=== PATIENT | male | born 1955 | race Caucasian/White ===

== ENCOUNTER 2017-12-04 10:01 | Inpatient (IN) | payer SELFPAY ==
[~2017-12-04] VITALS: Ht 175.3 cm; Wt 111.1 kg
[~2017-12-04 10:01] MED LIST: LORCET 10-6501 EACH PO; NORVASC10 MG PO; ULTRACET TABLE1 EACH PO
--- NOTE | 2017-12-04 10:40 | Diagnostic Imaging Report ---
Exam: Head CT without contrast History: Weakness in left hand and numbness and in left arm Comparison studies: None Technique: Axial images were obtained from the skull base to the vertex. Coronal and sagittal images reconstructed from the axial data. Intravenous contrast: None Findings: Scalp: No abnormalities. Bones: No fractures, blastic or lytic lesions. Brain sulci: Mildly prominent. Ventricles: Mild compensatory dilatation.. No hydrocephalus. Extra-axial spaces: No masses, no fluid collection. Parenchyma: No mass or acute hemorrhage. Subtle 6 mm age-indeterminate cortical insult along the right precentral gyrus regional to the hand knob. Symptoms of left handed weakness could be accounted for by a lesion in this location. There are chronic left striatal-capsular lacunar infarcts. Additional chronic lacunar infarct in in the bilateral thalami. Small juxtacortical lacunar insult along the left inferior frontal gyrus appears to be chronic. A few scattered hypodensities in the supratentorial white matter are nonspecific but most compatible with chronic small vessel ischemic changes. Sellar/suprasellar region: No abnormalities. Craniocervical junction: Patent foramen magnum. No Chiari one malformation. Incidental findings: Atherosclerotic calcifications in the carotid siphons and mildly ectatic left intradural vertebral artery. IMPRESSION: 1. Small age-indeterminate nonhemorrhagic right precentral cortical insult, possibly acute in the context of localizing neurologic symptoms to the left upper extremity. Brain MRI could further evaluate. 2. No mass, acute hemorrhage or large acute territorial vascular insult. 3. Mild generalized volume loss. 4. Mild chronic microvascular ischemic changes with chronic lacunar infarcts as described. Signed by: Dr. Sam Bledsoe M.D. on 12/04/2017 10:37 AM
[2017-12-04] MEDS ORDERED: NORCO 7.5-3251 EACH PO (10:46)
[2017-12-04] MEDS ORDERED: AMBIEN10 MG PO (10:46)
[2017-12-04] MEDS ORDERED: PHENTERMINE H37.5 M1 PO (10:46)
[2017-12-04] MEDS ORDERED: ASPIRIN 81 MG CHEW TAB PO STA (10:48)
[2017-12-04 10:55] LABS: BASOPHILS % 0.3 % (0.0-1.0); EOSINOPHILS # (AUTO) 0.1 (0.0-0.4); EOSINOPHILS % 1.7 % (0.0-6.0); HEMATOCRIT 48.3 % (38.2-49.6); HEMOGLOBIN 15.9 g/dL (14.0-18.0); LYMPHOCYTES # (AUTO) 1.5 (1.0-3.2); LYMPHOCYTES % 24.7 % (18.0-39.1); MEAN CORPUSCULAR HEMOGLOBIN 28.6 pg (28-32); MEAN CORPUSCULAR HGB CONC 32.9 g/dL (31-35); MEAN CORPUSCULAR VOLUME 86.9 fL (81-99); MONOCYTES # (AUTO) 0.6 (0.2-0.8); MONOCYTES % 10.1 % (4.4-11.3); NEUTROPHILS # (AUTO) 3.7 (2.1-6.9); PLATELET COUNT 202 x10e3/uL (140-360); RED BLOOD COUNT 5.56 x10e6/uL (4.3-5.7); RED CELL DISTRIBUTION WIDTH 13.7 % (11.7-14.4)
[2017-12-04 11:06] LABS: INR 0.93; PARTIAL THROMBOPLASTIN TIME 27.9 seconds (23.8-35.5); PROTHROMBIN TIME 12.9 seconds (11.9-14.5)
[2017-12-04 11:12] LABS: ALANINE AMINOTRANSFERASE 18 IU/L (0-55); ALBUMIN 3.6 g/dL (3.5-5.0); ALKALINE PHOSPHATASE 84 IU/L (40-150); BLOOD UREA NITROGEN 13 mg/dL (7-26); BUN/CREATININE RATIO 15 (6-25); CALCIUM 8.9 mg/dL (8.4-10.2); CARBON DIOXIDE 24 mmol/L (22-29); CHLORIDE 104 mmol/L (98-107); CREATINE KINASE 59 IU/L (30-200); CREATININE, SERUM 0.88 mg/dL (0.72-1.25); EST GLOMERULAR FILTRATION RATE > 60 ML/MIN (60-); GLUCOSE 231 mg/dL (74-118); SODIUM 137 mmol/L (136-145)
[2017-12-04] MEDS ORDERED: SODIUM CHLORIDE FLUSH 10 ML SYR INJ PRN (11:45)
--- NOTE | 2017-12-04 14:19 | Diagnostic Imaging Report ---
Exam: Brain, cervical MRA and intracranial MRA without IV contrast History: Left arm weakness. Comparison studies: Head CT of the same date. Technique: Brain: Precontrast sagittal axial T2 FS, axial DWI, axial T2*GRE, axial coronal T2 FLAIR and axial T1 FLAIR. Cervical MRA: Axial 2-D [id number] with 3-D MIP reformats. Intracranial MRA: Axial 3-D [id number] with multiplanar and 3-D MIP reformats Intravenous contrast: None Findings: Brain: Scalp: No abnormal signal. No masses. Bone marrow: Normal in signal intensity. Brain sulci: Mildly prominent . Ventricles: Normal in size. No hydrocephalus. No extra-axial fluid collection. Parenchyma: Small focus of nonhemorrhagic ischemia with restricted diffusion and T2 FLAIR hyperintensity centered along the right precentral gyrus, regional to the hand knob area, extends inferiorly along the adjacent right perirolandic white matter in the right MCA territory. There is subtle foci of increased signal on the DWI sequence within the right middle frontal gyrus which likely reflects additional small foci of acute ischemia. Small focal increased DWI signal in the deep right parietal white matter is maybe with mildly decreased signal on the ADC map may reflect late acute to subacute insult. A few scattered and mildly confluent-appearing periventricular T2 FLAIR hyperintense signal changes in the supratentorial white matter are nonspecific but most compatible with chronic small vessel ischemic changes. There are 2 small chronic left striatal-capsular lacunar insults which extend from the left caudate nucleus to the left lentiform nucleus. Additionally there are small chronic lacunar infarcts in the thalami and in right superolateral putamen. Subtle increased T2 signal within the left ventral midbrain and left central swati may possibly reflect Wallerian degeneration along the left cortical spinal tract. Mild T2 FLAIR hyperintense signal changes in the swati may also reflect mild chronic small vessel ischemic changes. Suprasellar region: No abnormalities. Craniocervical junction: No abnormalities. The foramen magnum is patent. No Chiari malformations. Vessels: Normal flow-voids in the arteries and sinuses. Cervical MRA: Common carotid arteries arteries: Left common carotid artery is mildly tortuous. Cervical carotid bulbs: No (0%) stenosis by NASCET criteria. Internal carotid arteries: Patent, no stenosis. Distal segments are tortuous bilaterally. Vertebral arteries: Patent, no signal abnormalities in the dominant left vertebral artery. Hypoplastic right vertebral artery is poorly visualized in the distal V3 and proximal V4 segment near the dural insertion and terminates as a right posterior inferior cerebellar artery (PICA) branch. Intracranial MRA: Internal carotid arteries: Patent. No signal abnormalities. Middle cerebral arteries: Patent, no abnormalities in the M1 and proximal M2 segments. Anterior cerebral arteries: Patent, no abnormalities in the A1 and proximal A2 segments. Vertebrobasilar circulation: Patent. No signal abnormalities.. Anatomical variants: Acom: Visualized. Pcoms: Not visualized. Vertebral arteries: Left is dominant. Right is hypoplastic and terminates as a a PICA. IMPRESSION: Brain: 1. Small focal nonhemorrhagic ischemia in the right precentral gyrus and regional to adjacent right perirolandic tracts would account for patient's neurologic symptoms localizing to the left hand and correlates to the CT finding. Likely small additional foci of nonhemorrhagic ischemia in the adjacent right middle frontal gyrus and small late acute to subacute focus of ischemia in the deep right parietal white matter. 2. Mild generalized volume loss. 3. Chronic microvascular ischemic changes which are mildly confluent in the supratentorial white matter and chronic lacunar infarcts as described. Cervical and intracranial MRAs: 1. No acute cervical or intracranial MRA abnormalities. 2. No (0%) stenosis at the cervical carotid bifurcations. 3. Anatomical variant hypoplastic right right vertebral artery which terminates as a PICA branch. Findings discussed with Dr. Robles 2:05 PM on 12/04/2017. Signed by: Dr. Sam Bledsoe M.D. on 12/04/2017 2:15 PM
[2017-12-04] MEDS: ENOXAPARIN 30 MG/0.3 ML SYR SC SCH (14:35)
[2017-12-04 15:08] LABS: CHOL/HDL RATIO 4.5 (3.9-4.7)
[2017-12-04 16:32] LABS: BILIRUBIN,URINE NEGATIVE (NEGATIVE); KETONES,URINE NEGATIVE (NEGATIVE); LEUKOCYTE ESTERASE ,URINE NEGATIVE (NEGATIVE); NITRITE,URINE NEGATIVE (NEGATIVE); URINE UROBILINOGEN 4 mg/dL (0.2 - 1)
[2017-12-04 16:39] LABS: CLARITY,URINE CLEAR (CLEAR); COLOR,URINE AMBER (YELLOW); PROTEIN,URINE DIPSTICK 1+ (NEGATIVE)
[2017-12-04 16:46] LABS: WBC,URINE (MAN) 0-5 /HPF (0-5)
[2017-12-04 16:47] LABS: BACTERIA,URINE FEW /HPF; MUCUS,URINE MODERATE (RARE); RBC,URINE 21-50 /HPF (0-5)
[2017-12-04 16:56] VITALS: BP 135/97
[2017-12-04 17:22] VITALS: BP 135/97
[2017-12-04 20:00] VITALS: BP 133/94
--- NOTE | 2017-12-04 20:31 | Consultation ---
DATE OF CONSULTATION: December 04, 2017 NEUROLOGY CONSULTATION HISTORY OF PRESENT ILLNESS: Mr. Yap is a 62-year-old, [id number] man with past medical history significant for hypertension, elevated serum glucoses, coronary artery disease with prior myocardial infarction, and tobacco use who presented to the emergency center at [facility] on December 04, 2017 with a 1 day history of left arm weakness. At approximately 2 p.m. on December 03, 2017, the patient noticed abrupt onset of weakness effecting his left hand and arm. Mr. Yap reports he could not press down on his proj mgr with his left thumb, nor could he hold a package of cigarettes with his left hand. The patient does not report other symptoms associated with the weakness in his left arm and hand. Specifically, he does not endorse a visual field cut or other disturbance, dysarthria, aphasia, facial droop, leg weakness, numbness, dizziness, or confusion. On the morning of December 04, 2017, the patient contacted his primary care physician, Dr. Dylon Islas, regarding his symptoms. Dr. Islas advised the patient to report to the emergency center at [facility] immediately for evaluation. While in the emergency center, the patient was found to have a mildly elevated blood pressure in the 140s systolic and 100s diastolic. His oxygen saturation was mildly low on room air. Otherwise, the patient's vital signs were stable. A CT of the brain without contrast was performed and demonstrated a right precentral ischemic infarct. This study demonstrated mild generalized volume loss appropriate for age and mild chronic small vessel ischemic disease as well. Mr. Yap is admitted to [facility] for further evaluation and treatment. REVIEW OF SYSTEMS: Mr. Yap reports subjective fevers and a cough associated with an upper respiratory tract infection he had a few weeks ago. He endorses weakness in his left hand and arm as described in the history of present illness. Otherwise, a 12-point review of systems is negative. PAST MEDICAL HISTORY: The patient endorses a history of hypertension as well as elevated serum glucose, both of which were previously controlled by diet and exercise. The patient has a history of coronary artery disease with a myocardial infarction 3 years ago. PAST SURGICAL HISTORY: A cardiac stent was placed approximately 3 years ago. Mr. Yap has had right ankle surgery, tonsillectomy, and cholecystectomy. PAST HOSPITALIZATIONS: Other than hospitalizations for surgeries, Mr. Yap denies prior hospitalizations. FAMILY HISTORY: The patient has no knowledge of his father's medical history. His mother is alive in her late 80s and is reportedly healthy. The patient has a brother who is reportedly healthy. Mr. Yap has 2 sons, both of whom are reportedly healthy. SOCIAL HISTORY: The patient quit school after the 10th grade. He served in the [employer] for 4 years. 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 Mr. Yap is . The patient does endorse tobacco use. He reports smoking one pack of cigarettes per day for approximately 40 years. He drinks an occasional beer. Mr. Yap does not report current or prior use of recreational drugs. MEDICATIONS: Hydrocodone/acetaminophen 7.5 mg-325 mg by mouth as needed for pain, phentermine 37.5 mg by mouth daily, Ambien 10 mg by mouth at bedtime as needed for insomnia. ALLERGIES: NO KNOWN DRUG ALLERGIES, NO KNOWN FOOD ALLERGIES, NO KNOWN ALLERGIES TO LATEX, NO KNOWN ALLERGIES TO CONTRAST MATERIALS. PHYSICAL EXAMINATION VITAL SIGNS: Height 5 feet 9 inches, weight 250 pounds, BMI 36.91, temperature 99.4, blood pressure 140/105 mmHg, pulse 66 beats per minute, respiratory rate 18 breaths per minute, oxygen saturation 93% on room air. GENERAL: The patient is awake and alert, does not appear distressed. Moderately obese. HEENT: Normocephalic, atraumatic. Pupils are equal, round and reactive to light. Moist mucous membranes. NECK: Supple. No appreciable thyromegaly, no appreciable carotid bruits. CARDIOVASCULAR: S1, S2. Regular rate and rhythm. No murmurs, rubs or gallops. RESPIRATORY: Clear to auscultation bilaterally. No wheezes, rhonchi, or rales. EXTREMITIES: No cyanosis, clubbing or edema. The posterior tibial and dorsalis pedis pulses are 1+ and symmetric. SKIN: Warm and dry. Venous stasis ulcerations over the distal forelegs. NEUROLOGIC, MEMORY/ATTENTION: The patient is awake and alert and oriented to person, place, time, and situation. Cranial nerves: Cranial nerve I -- not tested. Cranial nerve II, III, IV, and -- pupils are equal and round, react briskly to light (from 4 mm to 2 mm), extraocular movements intact, no nystagmus. Cranial nerve V -- sensation to light touch and pin prick is intact in the bilateral V1 through V3 distributions. Strength of the temporalis and masseter muscles is within normal limits. Cranial nerve VII -- the face is symmetric as are all facial movements. Strength is within normal limits. Cranial nerve VIII -- hearing is intact to finger rub bilaterally. Cranial nerve IX, X -- the soft palate elevates equally and symmetrically. Cranial nerve XI -- normal strength of the bilateral sternocleidomastoid and trapezius muscles. Cranial nerve XII -- the tongue protrudes midline and moves symmetrically from side to side. Strength: Bulk is normal and strength is 5/5 in the bilateral deltoids, biceps, triceps, wrist flexors and extensors, finger flexors and extensors, intrinsic hand muscles, hip flexors, knee flexors and extensors, ankle dorsal flexion and plantar flexion, and intrinsic foot muscles, except as follows: Muscles examined in the left arm are 4-4+/5 with mildly decreased tone. Otherwise, tone is normal in the remaining extremities. DTRs: Deep tendon reflexes are 1+ and symmetric at the triceps, biceps, brachial radialis, patellas and Achilles. Plantar responses are flexor bilaterally. Absent clonus. Sensation: Sensation is intact to light touch and pin prick in both arms and both legs. Cerebellar: Nnpyfw-iftl-fxtwoa and heel-an movements are intact without dysmetria or other impairment. Rapid alternating movements are intact. Gait: Deferred. Speech: Spontaneous speech is normal without appreciable dysarthria or aphasia. Repetition is intact. Involuntary movements: None. Pronator drift: None. LABORATORY DATA: Sodium 137, potassium 4.0, chloride 104, carbon dioxide 24, anion gap 13, BUN 13, creatinine 0.88. Estimated GFR greater than 60. BUN to creatinine ratio 15. Glucose 231. Calcium 8.9. Total bilirubin 0.5. AST 14. ALT 18. Alkaline phosphatase 84. Creatinine kinase 59. CK MB 2.20. Troponin I of 0.008. Total protein 7.1. Albumin 3.6. Globulin 3.5. Albumin to globulin ratio 1.0. CBC with differential and platelets reveals a white blood cell count of 5.87 with neutrophils 63%, lymphocytes 24.7%, monocytes 10.1%, eosinophils 1.7% and basophils 0.3%. Hemoglobin is 15.9, hematocrit 48.3, platelet count 202,000. PT 12.9. INR 0.93. PTT 27.9. Urinalysis is significant for 1+ protein, 2+ glucose, 4+ blood, 4 urobilinogen and 21-50 red blood cells. DIAGNOSTIC STUDIES: CT of the brain without contrast on 12/04/2017: There is a subacute ischemic stroke of the right precentral gyrus. There is no evidence of hemorrhage, mass, or mass affect. The study does reveal mild generalized volume loss appropriate for age and mild chronic small vessel ischemic disease. ASSESSMENT AND PLAN: Mr. Yap is a 62-year-old, [id number]-[id number] man with known vascular risk factors who presents to [facility] with an ischemic stroke effecting the right motor strip in the setting of left arm and hand weakness. The patient's neurological examination is significant for mild weakness of all muscles examined in the left arm and hand. His laboratory data and imaging results have been reviewed and are documented above. RECOMMENDATIONS: 1. Admit to telemetry. Mr. Yap will be monitored for a cardiac arrhythmia which would predispose him to having a stroke. 2. An MRI of the brain and MRA of the brain and neck without contrast have been performed. The results are pending. 3. A complete echocardiogram, lipid panel, and hemoglobin A1c will be ordered. 4. Mr. Yap will take aspirin 325 mg by mouth daily for stroke prophylaxis. 5. Allow permissive hypertension. The patient's goal systolic blood pressure is 160 to 180 mmHg pending the outcome of vessel imaging. 6. A physical therapy evaluation will be ordered. 7. Deep venous thrombosis prophylaxis -- Lovenox 30 mg injected subcutaneously daily. 8. GI prophylaxis -- Mr. Yap is tolerating p.o. Chemical GI prophylaxis is not necessary. 9. Smoking cessation counseling was provided to the patient. Thank you for this consultation. I will continue to follow the patient with you while he remains in the hospital. Time spent: 70 minutes. Job#: [id number]
[2017-12-04 20:54] VITALS: BP 133/94
[2017-12-04] MEDS ORDERED: HYDROCODONE/APAP 7.5MG-325MG 1 EA TAB PO PRN (21:30)
[2017-12-04] MEDS ORDERED: ZOLPIDEM TARTRATE 10 MG TAB PO PRN (21:30)
[2017-12-05 04:00] VITALS: BP 142/98
[2017-12-05 07:42] VITALS: BP 148/101
[2017-12-05] MEDS ORDERED: ENOXAPARIN 30 MG/0.3 ML SYR SC SCH (09:00)
[2017-12-05] MEDS: ASPIRIN 325 MG TAB EC PO SCH (10:13)
[2017-12-05] MEDS: ENOXAPARIN 30 MG/0.3 ML SYR SC SCH (10:13)
[2017-12-05] MEDS: NICOTINE 21 MG/EA PATCH TOP SCH (10:14)
[2017-12-05 11:44] VITALS: BP 152/104
[2017-12-05 15:52] VITALS: BP 135/100
[2017-12-05] MEDS ORDERED: DEXTROSE 50% SYRINGE 50 ML IV PRN ×2 (19:30)
[2017-12-05 20:00] VITALS: BP 153/100
[2017-12-05] MEDS ORDERED: ATORVASTATIN 20 MG TAB PO SCH (21:00)
[2017-12-05] MEDS: INSULIN REGULAR, HUMAN 100 UNIT/1 ML 3ML VIAL SQ SCH (21:45)
[2017-12-06] VITALS (7 sets, daily range): BP systolic 140–175; BP diastolic 95–106
[2017-12-06] MEDS: INSULIN REGULAR, HUMAN 100 UNIT/1 ML 3ML VIAL SQ SCH ×3 (07:30→16:30)
[2017-12-06] MEDS ORDERED: GLIMEPIRIDE 2 MG TAB PO SCH (08:00)
[2017-12-06] MEDS ORDERED: METOPROLOL TARTRATE 25 MG TAB PO SCH ×2 (09:00)
[2017-12-06] MEDS: METFORMIN HCL 500 MG TAB PO SCH ×2 (09:00→17:37)
[2017-12-06] MEDS: ASPIRIN 325 MG TAB EC PO SCH (09:00)
[2017-12-06] MEDS: ENOXAPARIN 30 MG/0.3 ML SYR SC SCH (09:01)
[2017-12-06] MEDS: NICOTINE 21 MG/EA PATCH TOP SCH (09:01)
[2017-12-06] MEDS ORDERED: AMLODIPINE BESYLATE 5 MG TAB PO ONE ×2 (14:15→14:30)
[2017-12-06] MEDS ORDERED: ATORVASTATIN CA20 MG PO (16:34)
[2017-12-06] MEDS ORDERED: AMLODIPINE BESY10 MG PO (16:35)
[2017-12-06] MEDS ORDERED: METOPROLOL TART50 MG PO (16:36)
[2017-12-06] MEDS ORDERED: METFORMIN HCL500 MG PO (16:41)
[2017-12-06] MEDS ORDERED: GLIMEPIRIDE2 MG PO (16:41)
--- NOTE | 2018-01-17 15:12 | History and Physical ---
HISTORY OF PRESENT ILLNESS: A 62-year-old gentleman comes in with weakness of the left leg and numbness and sensory deficits. PAST MEDICAL HISTORY: History of hypertension for which he sees his primary care physician. SURGICAL HISTORY: Cardiac stent placed 3 years ago. History of coronary artery disease and myocardial infarction 3 years ago. History of hospitalization for surgeries for his stents and his surgeries. The patient also had right ankle surgery, tonsillectomy and cholecystectomy. FAMILY HISTORY: Noncontributory. SOCIAL HISTORY: Still smokes, has been smoking for 40 years. MEDICATIONS: Hydrocodone APAP 7.5/325. Ambien 10 mg. ALLERGIES: NO DRUG ALLERGIES NOTED. PHYSICAL EXAMINATION GENERAL: Patient is alert and oriented x3. VITAL SIGNS: Blood pressure is 140/105. HEENT: Normocephalic, atraumatic. NECK: No JVD present. CARDIOVASCULAR: S1 and S2 normal. Regular rate and rhythm. ABDOMEN: Nontender, nondistended. EXTREMITIES: No clubbing, no cyanosis and no edema. Positive for pedal pulses. NEUROLOGICAL: Cranial nerves are intact. Strength within normal limits. DTRs were normal, 1+, symmetrical. No cerebellar signs. LABORATORY FINDINGS: Sodium 137, potassium 4, BUN ratio 15, BUN was 13, creatinine 0.8. DIAGNOSTIC STUDIES: CT brain: Subacute ischemic stroke. No evidence of hemorrhage, mass or mass effect. ASSESSMENT: Stroke, cerebrovascular accident affecting the right motor strip in the setting of left arm and left hand weakness. Plan is to admit to telemetry, MRI scan, complete echocardiogram and carotid Dopplers, and start the patient on aspirin, statins and beta blockade. A consult with Dr. Hilaria Riley was done, too. Job#: [id number] EV
--- NOTE | 2018-01-17 17:18 | Discharge Summary ---
A 62-year-old gentleman with [id number] stroke who came in with stroke. The patient was also having uncontrolled diabetes mellitus and uncontrolled hypertension. PT and OT were started. The patient's blood pressure was controlled. For the CVA, the patient was started on Enoxaparin 30 mg daily and also aspirin 325 mg daily. MRI showed an acute stroke in the right cortex. Echo with an EF of 50% to 55% with LVH. The patient was started on statin, aspirin and physical therapy was started. The patient also was counseled on smoking cessation. OT as an outpatient treatment. The patient agreed for this. The patient's blood pressure was controlled. He was started on amlodipine 10 mg . He was discharged on amlodipine, atorvastatin and metoprolol 50 mg twice a day Physical therapy on an outpatient basis. The patient also was given Glimepiride 2 mg for the onset of diabetes and metformin 5 mg twice a day too. FINAL DIAGNOSES 1. Cerebrovascular accident. 2. Hypertension, uncontrolled. 3. New onset diabetes mellitus. The patient is asked to follow up with her primary care physician. For further information, look at the chart. DOMINIQUE LO MD Job#: [id number]
== END 2017-12-06 17:48 | disposition home or self-care (01) | DRG 65 ==
LOC: ER 10:01 → ERHOLD 14:14 → MED/SURG3 16:02
PROVIDERS: ADMIT Internal Medicine; ATTEND Internal Medicine
DX: I63.9 Cerebral infarction, unspecified (principal); G81.92 Hemiplegia, unspecified affecting left dominant side; E11.65 Type 2 diabetes mellitus with hyperglycemia; I10 Essential (primary) hypertension; E78.5 Hyperlipidemia, unspecified; F17.210 Nicotine dependence, cigarettes, uncomplicated; I25.10 Atherosclerotic heart disease of native coronary artery without angina pectoris; I25.2 Old myocardial infarction; Z95.5 Presence of coronary angioplasty implant and graft; E66.01 Morbid (severe) obesity due to excess calories; Z68.36 Body mass index [BMI] 36.0-36.9, adult; I87.8 Other specified disorders of veins
CPT/HCPCS: 36415; 70450; 70544; 70547; 70551; 80053; 80061; 81001; 82550; 82553; 82948; 83036; 84484; 85025; 85610; 85730; 93005; 93306; 99284; J1650

== ENCOUNTER 2020-04-08 01:17 | Emergency (ER) | payer MEDICARE, OTHER ==
[~2020-04-08] VITALS: Ht 175.3 cm; Wt 111.1 kg
[~2020-04-08 01:17] MED LIST changes: +AMBIEN10 MG PO; +AMLODIPINE BESY10 MG PO; +ATORVASTATIN CA20 MG PO; +GLIMEPIRIDE2 MG PO; +METFORMIN HCL500 MG PO; +METOPROLOL TART50 MG PO; +NORCO 7.5-3251 EACH PO; +PHENTERMINE H37.5 M1 PO
[2020-04-08] MEDS ORDERED: LIDOCAINE 1% W/EPINEPHRINE 20 ML VIAL INJ ONE (01:30)
--- OUTSIDE RECORDS SUMMARY | 2020-04-08 01:50 | XMS REPORT | Clinical Summary ---
Author Author ROX[facility] Organization [facility] Address Unknown Phone Unavailable Care Team Providers Care Coil Builder Name Role Phone Sharpless PCP Allergies No Known Allergies Medications End Date Status Medication Sig Dispensed Refills Start Date 09/23/2020 Active amLODIPine (NORVASC) 10 Take 1 tablet 30 tablet 2 MG tablet (10 mg total) 9 by mouth daily. Active apixaban (ELIQUIS) 5 mg Take 1 tablet 60 tablet 2 Tab tablet (5 mg total) 9 by mouth 2 (two) times daily. 09/23/2020 Active aspirin 81 MG EC tablet Take 1 tablet 30 tablet 2 (81 mg total) 9 by mouth daily. 09/23/2020 Active atorvastatin (LIPITOR) 80 Take 1 tablet 30 tablet 2 MG tablet (80 mg total) 9 by mouth nightly. Active melatonin 5 mg Tab tablet Take 1 tablet 30 tablet 2 (5 mg total) 9 by mouth nightly. Active metFORMIN (GLUCOPHAGE) Take 1 tablet 60 tablet 2 1 1000 MG tablet (1,000 mg 9 total) by mouth 2 (two) times daily. 09/23/2020 Active metoprolol (LOPRESSOR) 50 Take 1 tablet 60 tablet 2 MG tablet (50 mg total) 9 by mouth 2 (two) times daily. Active polyethylene glycol Take 17 g by 30 each 2 09/24 (GLYCOLAX) 17 gram packet mouth daily. 9 09/18/2020 Active acetaminophen (TYLENOL) Take 2 30 tablet 2 325 MG tablet tablets (650 9 mg total) by mouth every 6 (six) hours as needed for Pain for up to 360 days. Active bisacodyl (DULCOLAX) 10 Place 1 12 2 mg suppository suppository suppository 9 (10 mg total) rectally daily as needed (for constipation) . Active docusate sodium (COLACE) Take 1 60 capsule 2 1 100 MG capsule capsule (100 9 mg total) by mouth 2 (two) times daily. 09/23/2020 Active DULoxetine (CYMBALTA) 20 Take 1 60 capsule 2 1 MG capsule capsule (20 9 mg total) by mouth 2 (two) times daily. Active famotidine (PEPCID) 20 MG Take 1 tablet 60 tablet 2 tablet (20 mg total) 9 by mouth 2 (two) times daily. 09/23/2020 Active gabapentin (NEURONTIN) Take 1 90 capsule 2 400 MG capsule capsule (400 9 mg total) by mouth 3 (three) times daily. 09/23/2020 Active multivitamin (THERAGRAN) Take 1 tablet 30 tablet 2 tablet by mouth 9 daily. 09/23/2020 Active senna (SENOKOT) 8.6 mg Take 2 60 tablet 2 tablet tablets (17.2 9 mg total) by mouth daily with lunch. Active traMADol (ULTRAM) 50 mg Take 1 tablet 30 tablet 1 tablet (50 mg total) 9 by mouth every 6 (six) hours as needed for Pain. Max Daily Amount: 200 mg 09/24/2019 Discontinued amLODIPine (NORVASC) 10 Take 10 mg by 1 MG tablet mouth daily. 8 09/24/2019 Discontinued glimepiride (AMARYL) 2 MG Take 2 mg by 0 12/07 tablet mouth daily 8 with breakfast. 09/08/2019 Discontinued HYDROcodone-acetaminophen Take 1 tablet 0 02/04 (NORCO 10-325) 10-325 mg by mouth 8 per tablet every 6 (six) hours as needed. 09/24/2019 Discontinued metFORMIN (GLUCOPHAGE) Take 1,000 mg 0 01 500 MG tablet by mouth 2 8 (two) times daily. 09/24/2019 Discontinued metoprolol (LOPRESSOR) 50 Take 50 mg by 0 12/07 MG tablet mouth 2 (two) 8 times daily. 09/08/2019 Discontinued atorvastatin (LIPITOR) 20 Take 20 mg by 0 MG tablet mouth daily. 09/24/2019 Discontinued aspirin 81 MG EC tablet Take 81 mg by 0 mouth daily. 09/24/2019 Discontinued atorvastatin (LIPITOR) 80 Take 1 tablet 30 tablet 1 MG tablet (80 mg total) 9 by mouth nightly. 09/24/2019 Discontinued apixaban (ELIQUIS) 5 mg Take 1 tablet 60 tablet 0 Tab tablet (5 mg total) 9 by mouth 2 (two) times daily. 09/24/2019 Discontinued senna-docusate (SENOKOT Take 1 tablet 30 tablet 0 S) 8.6-50 mg per tablet by mouth 2 9 (two) times daily. 09/24/2019 Discontinued polyethylene glycol Take 17 g by 14 each 0 09/09 (GLYCOLAX) 17 gram packet mouth daily 9 for 3 days. 09/24/2019 Discontinued nicotine (NICODERM CQ) 21 Place 1 patch 28 patch 0 mg/24 hr patch onto the skin 9 daily for 30 days. 09/24/2019 Discontinued melatonin 5 mg Tab tablet Take 1 tablet 0 (5 mg total) 9 by mouth nightly. 09/24/2019 Discontinued insulin lispro (HUMALOG) Inject 0-4 10 mL 0 1 100 unit/mL injection Units 9 subcutaneousl y every night as needed (High blood sugar). 09/24/2019 Discontinued insulin lispro (HUMALOG) Inject 0-8 10 mL 0 1 100 unit/mL injection Units 9 subcutaneousl y as needed (High blood sugar). 10/24/2019 nicotine (NICODERM CQ) 21 Place 1 patch 28 patch 1 mg/24 hr patch onto the skin 9 daily for 30 days. 10/01/2019 guaiFENesin (MUCINEX) 600 Take 1 tablet 14 tablet 0 mg 12 hr tablet (600 mg 9 total) by mouth 2 (two) times daily for 7 days. 12/02/2019 terbinafine HCl (LAMISIL) Take 1 tablet 69 tablet 0 250 mg tablet (250 mg 9 total) by mouth daily for 69 days. 10/25/2019 lidocaine (LIDODERM) 5 % Place 1 patch 30 patch 1 patchIndications: apply onto the skin 9 to Left upper thigh daily for 30 region of pain days Remove & Discard patch within 12 hours or as directed by MD. Active Problems Problem Noted Date CAD (coronary artery disease) 09/04/2019 Right thyroid nodule 09/04/2019 Fall 09/04/2019 Agitation 09/04/2019 Weakness 09/03/2019 Ureteral stone with hydronephrosis 05/22/2018 History of CVA (cerebrovascular accident) 05/22/2018 Tobacco abuse 05/22/2018 Stroke (cerebrum) 04/04/2018 Acute CVA (cerebrovascular accident) 04/04/2018 S/P admn tPA for stroke 04/04/2018 Obesity 04/04/2018 Acute left [place] [employer] stroke [place], old Essential hypertension Type 2 diabetes mellitus without compli cation, without long-term current use of insulin Encounters Care Team Description Date Type Specialty Donny Murray Acute left [employer] stroke (HCC); Coronary artery disease involving [place] heart without angina pectoris, unspecified vessel or lesion type; Essential hypertension; History of CVA (cerebrovascular accident); [place], old; Obesity with serious comorbidity, unspecified classification, unspecified obesity type; Tobacco abuse; Type 2 diabetes mellitus without complication, without long-term current use of insulin (HCC); Left hemiparesis (HCC); Aphasia; Grief; Cough; Cognitive impairment; Impaired mobility and activities of daily living; Neurocognitive deficits; Acute CVA (cerebrovascular accident) (HCC); Agitation 09/08/2019 [facility] Physical Medicine a nd - Encounter Rehabilitation 09/29/2019 09/08/2019 Travel Mario Jordan MD Kemal, Nejmudin Reshad, MD Pathak, Chuck Ferguson Weakness (Primary Dx); Acute left [employer] [employer] stroke (HCC); Paroxysmal atrial fibrillation (HCC); Acute CVA (cerebrovascular accident) (HCC); Agitation; Essential hypertension; Coronary artery disease involving [place] heart without angina pectoris, unspecified vessel or lesion type; Impaired mobility and ADLs 09/03/2019 [facility] Internal Al dicine - Encounter 09/08/2019 09/03/2019 Travel after 04/08/2019 Immunizations Name Dates Previously Given Next Due Pneumococcal Conjugate 05/25/2018 (Prevnar) 13-Valent Social History Date Tobacco Use Types Packs/Day Years Used Current Every Day Smoker Cigarettes Smokeless Tobacco: Never Used Tobacco Cessation: Ready to Quit: Yes Alcohol Use Drinks/Week oz/Week Comments No Sex Assigned at Date Recorded Not on file Industry Job Start Date Occupation Not on file Not on file Not on file Travel End Travel History Travel Start No recent travel history available. Last Filed Vital Signs Time Taken Vital Sign Reading 09/29/2019 9:00 AM WELDER SETTER [employer] Blood Pressure 125/90 09/29/2019 9:00 AM WELDER SETTER [employer]INE Pulse 56 09/29/2019 4:27 AM WELDER SETTER [employer]ACHINE Temperature 36.3 C (97.4 F) 09/29/2019 4:27 AM WELDER SETTER [employer]INE Respiratory Rate 18 09/29/2019 4:27 AM WELDER SETTER ELECT[employer]ACHINE Oxygen Saturation 94% - Inhaled Oxygen - Concentration 09/28/2019 9:02 AM WELDER SETTER [employer] Weight 107.7 kg (237 lb 7 oz) 09/08/2019 4:29 PM WELDER SETTER [employer] Height 175.3 cm (5' 9") 09/28/2019 9:02 AM WELDER SETTER [employer] Body Mass Index 35.06 Plan of Treatment Health Maintenance Due Date Last Done Comments COLON CANCER SCREENING 1955 COLONOSCOPY Medicare IPPE (WELCOME TO 05/05/2019 MEDICARE) PNEUMOCOCCAL 65+ 05/25/2019 05/25/2018 LOW/MEDIUM RISK (2 of 2 - PPSV23) INFLUENZA VACCINE (#1) 2019 HEMOGLOBIN A1C 03/04/2020 09/04/2019, 018, 02/19/2013 Implants Device Identifier Shelf Expiration Date Model / Serial / L ot Implanted Type Area Manufactur er 09/04/2019 [id number] / / [id number] Set Stent Injection 6x28cm 185-615 Uro Stent Left: Urete r [place] - [id number] [employer]:ONCOLO Implanted: Qty: 1 on 05/24/2018 by Raúl Ortega MD 01/03/2020 [id number] / / [id number] Set Stent Injection 6x26cm Uro Stent Right: Ureter DANUTA TON [id number] - [id number] [employer]:ONCOLO Implanted: Qty: 1 on 05/24/2018 by Raúl Ortega MD Procedures Comments Procedure Name Priority Date/Time Associated Diag nosis POCT-GLUCOSE METER Routine 09/29/2019 11:34 AM WEL[employer] SETTER [employer]INE POCT-GLUCOSE METER Routine 09/29/2019 6:29 AM WELDER SETTER [employer]ACHINE CBC (HEMOGRAM ONLY) Routine 09/29/2019 3:33 AM WELDER SETTER [employer]ACHINE BASIC METABOLIC PANEL (7) Routine 09/29/2019 3:33 AM WELDER SETTER [employer]INE POCT-GLUCOSE METER Routine 09/28/2019 8:43 PM WELDER SETTER [employer]INE POCT-GLUCOSE METER Routine 09/28/2019 5:26 PM WEL[employer]TER [employer]INE POCT-GLUCOSE METER Routine 09/28/2019 10:44 AM WELDER SETTER [employer]INE POCT-GLUCOSE METER Routine 09/28/2019 6:06 AM WEL[employer]TER [employer]INE POCT-GLUCOSE METER Routine 09/27/2019 8:18 PM WELDER [employer]TER [employer]INE POCT-GLUCOSE METER Routine 09/27/2019 7:39 PM WELDER [employer]TER [employer]INE POCT-GLUCOSE METER Routine 09/27/2019 4:25 PM WELDER [employer]TER [employer]INE POCT-GLUCOSE METER Routine 09/27/2019 11:58 AM WELDER [employer]TER [employer]INE POCT-GLUCOSE METER Routine 09/27/2019 6:25 AM WELDER SETTER [employer]INE POCT-GLUCOSE METER Routine 09/26/2019 7:59 PM WELDER SETTER [employer]INE POCT-GLUCOSE METER Routine 09/26/2019 4:22 PM WELDER SETTER [employer]INE POCT-GLUCOSE METER Routine 09/26/2019 11:58 AM WELDER SETTER [employer]INE POCT-GLUCOSE METER Routine 09/26/2019 6:31 AM WELDER SETTER [employer]INE POCT-GLUCOSE METER Routine 09/25/2019 7:39 PM WELDER SETTER [employer]INE POCT-GLUCOSE METER Routine 09/25/2019 4:04 PM WELDER [employer]TER [employer]INE POCT-GLUCOSE METER Routine 09/25/2019 6:41 AM WELDER SETTER [employer]INE POCT-GLUCOSE METER Routine 09/24/2019 8:49 PM WELDER SETTER [employer]INE POCT-GLUCOSE METER Routine 09/24/2019 4:31 PM WELDER SETTER [employer]INE POCT-GLUCOSE METER Routine 09/24/2019 11:53 AM WELDER SETTER [employer]INE POCT-GLUCOSE METER Routine 09/24/2019 6:58 AM WELDER SETTER [employer]INE POCT-GLUCOSE METER Routine 09/23/2019 8:52 PM WELDER SETTER [employer]INE POCT-GLUCOSE METER Routine 09/23/2019 4:20 PM WELDER SETTER [employer]INE POCT-GLUCOSE METER Routine 09/23/2019 11:35 AM WELDER SETTER [employer]INE POCT-GLUCOSE METER Routine 09/23/2019 6:18 AM WELDER SETTER [employer]INE POCT-GLUCOSE METER Routine 09/22/2019 9:07 PM WELDER SETTER [employer]INE POCT-GLUCOSE METER Routine 09/22/2019 3:41 PM WELDER SETTER [employer]INE POCT-GLUCOSE METER Routine 09/22/2019 12:45 PM WELDER SETTER [employer]INE XR ESOPH SWALLOW FUNCTION Routine 09/22/2019 W/CINE VIDEO 12:29 PM WELDER SETTER [employer]ACHINE POCT-GLUCOSE METER Routine 09/22/2019 6:20 AM WELDER SETTER [employer]INE CBC (HEMOGRAM ONLY) Routine 09/22/2019 5:02 AM WELDER SETTER [employer]ACHINE BASIC METABOLIC PANEL (7) Routine 09/22/2019 5:02 AM WELDER SETTER [employer]INE POCT-GLUCOSE METER Routine 09/21/2019 8:02 PM WELDER SETTER [employer]INE POCT-GLUCOSE METER Routine 09/21/2019 4:23 PM WELDER SETTER [employer]INE POCT-GLUCOSE METER Routine 09/21/2019 11:44 AM WELDER SETTER [employer]INE POCT-GLUCOSE METER Routine 09/21/2019 6:24 AM WELDER SETTER [employer]INE POCT-GLUCOSE METER Routine 09/20/2019 7:57 PM WELDER SETTER [employer]INE POCT-GLUCOSE METER Routine 09/20/2019 4:17 PM WELDER SETTER [employer]INE POCT-GLUCOSE METER Routine 09/20/2019 11:41 AM WELDER SETTER [employer]INE POCT-GLUCOSE METER Routine 09/20/2019 6:24 AM WELDER SETTER [employer]INE POCT-GLUCOSE METER Routine 09/19/2019 7:52 PM WELDER SETTER [employer]INE POCT-GLUCOSE METER Routine 09/19/2019 4:26 PM WELDER SETTER [employer]INE POCT-GLUCOSE METER Routine 09/19/2019 11:21 AM WELDER SETTER [employer]INE POCT-GLUCOSE METER Routine 09/19/2019 5:43 AM WELDER SETTER [employer]INE POCT-GLUCOSE METER Routine 09/18/2019 8:24 PM WELDER SETTER [employer]INE POCT-GLUCOSE METER Routine 09/18/2019 4:44 PM WELDER SETTER [employer]INE POCT-GLUCOSE METER Routine 09/18/2019 10:55 AM WELDER SETTER [employer]ACHINE POCT-GLUCOSE METER Routine 09/18/2019 6:43 AM WELDER SETTER [employer]INE POCT-GLUCOSE METER Routine 09/17/2019 8:53 PM WELDER SETTER [employer]INE POCT-GLUCOSE METER Routine 09/17/2019 4:35 PM WELDER SETTER [employer]INE POCT-GLUCOSE METER Routine 09/17/2019 12:07 PM WELDER SETTER [employer]INE POCT-GLUCOSE METER Routine 09/17/2019 6:33 AM WELDER SETTER [employer] MACHINE POCT-GLUCOSE METER Routine 09/16/2019 7:59 PM WELDER SETTER [employer]INE POCT-GLUCOSE METER Routine 09/16/2019 5:11 PM WELDER SETTER [employer]INE POCT-GLUCOSE METER Routine 09/16/2019 11:56 AM WELDER SETTER [employer]INE POCT-GLUCOSE METER Routine 09/16/2019 6:31 AM WELDER SETTER [employer]INE POCT-GLUCOSE METER Routine 09/15/2019 7:27 PM WELDER SETTER [employer]INE POCT-GLUCOSE METER Routine 09/15/2019 5:05 PM WELDER SETTER [employer]ACHINE POCT-GLUCOSE METER Routine 09/15/2019 12:05 PM WELDER SETTER [employer]INE POCT-GLUCOSE METER Routine 09/15/2019 6:19 AM WELDER SETTER [employer] MACHINE CBC (HEMOGRAM ONLY) Routine 09/15/2019 6:11 AM WELDER SETTER [employer]ACHINE BASIC METABOLIC PANEL (7) Routine 09/15/2019 6:11 AM WELDER SETTER [employer]ACHINE POCT-GLUCOSE METER Routine 09/14/2019 8:09 PM WELDER SETTER [employer]ACHINE POCT-GLUCOSE METER Routine 09/14/2019 4:45 PM WELDER SETTER [employer]INE POCT-GLUCOSE METER Routine 09/14/2019 12:05 PM WELDER SETTER [employer]INE POCT-GLUCOSE METER Routine 09/14/2019 6:32 AM WELDER SETTER [employer]INE POCT-GLUCOSE METER Routine 09/13/2019 9:57 PM WELDER SETTER [employer]INE POCT-GLUCOSE METER Routine 09/13/2019 5:53 PM WELDER SETTER [employer]ACHINE POCT-GLUCOSE METER Routine 09/13/2019 12:13 PM WELDER SETTER [employer] MACHINE POCT-GLUCOSE METER Routine 09/13/2019 6:45 AM WELDER SETTER [employer]INE POCT-GLUCOSE METER Routine 09/12/2019 7:36 PM WELDER SETTER [employer]INE POCT-GLUCOSE METER Routine 09/12/2019 4:56 PM WELDER SETTER [employer]INE POCT-GLUCOSE METER Routine 09/12/2019 2:30 PM WELDER SETTER [employer]ACHINE POCT-GLUCOSE METER Routine 09/12/2019 10:59 AM WELDER SETTER [employer]INE POCT-GLUCOSE METER Routine 09/12/2019 6:29 AM WELDER SETTER [employer]INE POCT-GLUCOSE METER Routine 09/11/2019 8:33 PM WELDER SETTER [employer]INE POCT-GLUCOSE METER Routine 09/11/2019 4:41 PM WELDER SETTER [employer]INE POCT-GLUCOSE METER Routine 09/11/2019 11:40 AM WELDER SETTER [employer]INE POCT-GLUCOSE METER Routine 09/11/2019 6:20 AM WELDER SETTER [employer]INE POCT-GLUCOSE METER Routine 09/10/2019 9:33 PM WELDER SETTER [employer]INE POCT-GLUCOSE METER Routine 09/10/2019 5:43 PM WELDER [employer]TER [employer]INE POCT-GLUCOSE METER Routine 09/10/2019 4:13 PM WELDER [employer]TER [employer]INE ARRYTHMIA IMPLANT REPORT 09/10/2019 - SCAN 2:11 PM WELDER SETTER [employer]ACHINE RHYTHM STRIP - SCAN 09/10/2019 2:10 PM WELDER SETTER [employer]INE RHYTHM STRIP - SCAN 09/10/2019 2:10 PM WELDER [employer]TER [employer]ACHINE POCT-GLUCOSE METER Routine 09/10/2019 11:03 AM WELDER SETTER [employer]INE POCT-GLUCOSE METER Routine 09/10/2019 6:39 AM WEL[employer]TER [employer]INE POCT-GLUCOSE METER Routine 09/09/2019 9:43 PM W[employer]TER [employer]INE POCT-GLUCOSE METER Routine 09/09/2019 4:55 PM W[employer] ECG 12-LEAD Routine 09/09/2019 12:29 PM WEL[employer]INE POCT-GLUCOSE METER Routine 09/09/2019 11:52 AM WELDER [employer]TER [employer]INE POCT-GLUCOSE METER Routine 09/09/2019 6:19 AM WELDER SETTER [employer]INE CBC W/PLT COUNT & AUTO Routine 09/09/2019 DIFFERENTIAL 4:21 AM WELDER [employer]TER [employer] CBC W/PLT COUNT & AUTO Routine 09/09/2019 DIFFERENTIAL 4:21 AM WELDER [employer]TER [employer]INE COMPREHENSIVE METABOLIC Routine 09/09/2019 PANEL 4:21 AM WELDER SETTER [employer]INE POCT-GLUCOSE METER Routine 09/08/2019 9:05 PM WELDER [employer]TER [employer]INE POCT-GLUCOSE METER Routine 09/08/2019 4:34 PM WELDER [employer]TER [employer]INE POCT-GLUCOSE METER Routine 09/08/2019 11:56 AM WELDER SETTER [employer]INE POCT-GLUCOSE METER Routine 09/08/2019 7:49 AM WELDER SETTER [employer]ACHINE CBC W/PLT COUNT & AUTO Routine 09/08/2019 DIFFERENTIAL 4:28 AM WELDER [employer]TER [employer] BASIC METABOLIC PANEL (7) Routine 09/08/2019 4:28 AM WELDER [employer]TER [employer]INE CBC W/PLT COUNT & AUTO Routine 09/08/2019 DIFFERENTIAL 4:28 AM WELDER [employer]TER [employer]INE POCT-GLUCOSE METER Routine 09/07/2019 8:44 PM WELDER [employer]TER [employer]INE POCT-GLUCOSE METER Routine 09/07/2019 4:55 PM WELDER [employer]TER [employer]INE POCT-GLUCOSE METER Routine 09/07/2019 11:25 AM WELDER [employer]TER [employer]INE POCT-GLUCOSE METER Routine 09/07/2019 8:19 AM WELDER [employer]TER [employer]ACHINE CBC W/PLT COUNT & AUTO Routine 09/07/2019 DIFFERENTIAL 5:07 AM WELDER [employer]TER [employer]INE BASIC METABOLIC PANEL (7) Routine 09/07/2019 5:07 AM WEL[employer]TER [employer] CBC W/PLT COUNT & AUTO Routine 09/07/2019 DIFFERENTIAL 5:07 AM WELDER SET[employer] CT BRAIN WITHOUT IV STAT 09/06/2019 CONTRAST 11:01 PM CDT POCT-GLUCOSE METER Routine 09/06/2019 7:07 PM CDT POCT-GLUCOSE METER Routine 09/06/2019 12:08 PM CDT POCT-GLUCOSE METER Routine 09/06/2019 7:33 AM CDT POCT-GLUCOSE METER Routine 09/05/2019 7:40 PM CDT POCT-GLUCOSE METER Routine 09/05/2019 4:41 PM CDT POCT-GLUCOSE METER Routine 09/05/2019 11:41 AM CDT POCT-GLUCOSE METER Routine 09/05/2019 7:43 AM CDT POCT-GLUCOSE METER Routine 09/04/2019 8:36 PM CDT POCT-GLUCOSE METER Routine 09/04/2019 5:24 PM CDT POCT-GLUCOSE METER Routine 09/04/2019 1:47 PM CDT POCT-GLUCOSE METER Routine 09/04/2019 7:40 AM CDT CBC W/PLT COUNT & AUTO Routine 09/04/2019 DIFFERENTIAL 4:31 AM CDT VITAMIN B12 AND FOLATE Routine 09/04/2019 4:31 AM CDT HEMOGLOBIN A1C Routine 09/04/2019 4:31 AM CDT CBC W/PLT COUNT & AUTO Routine 09/04/2019 DIFFERENTIAL 4:31 AM CDT LIPID PANEL Routine 09/04/2019 4:31 AM CDT BASIC METABOLIC PANEL (7) Routine 09/04/2019 4:31 AM CDT ECHOCARDIOGRAM REPORT - 09/03/2019 SCAN 9:23 PM CDT POCT-GLUCOSE METER Routine 09/03/2019 9:03 PM CDT POCT-GLUCOSE METER Routine 09/03/2019 5:45 PM CDT 2D ECHO W/ DOPPLER Routine 09/03/2019 (CW/PW/COLOR) 3:28 PM CDT POCT-GLUCOSE METER Routine 09/03/2019 3:06 PM CDT MR BRAIN WITHOUT IV STAT 09/03/2019 CONTRAST 2:40 PM CDT XR CHEST 1 VIEW STAT 09/03/2019 PORTABLE/BEDSIDE 1:05 PM CDT URINALYSIS WITH Routine 09/03/2019 MICROSCOPIC IF INDICATED 7:55 AM CDT TSH/FREE T4 IF INDICATED Routine 09/03/2019 7:55 AM CDT HOMOCYSTEINE Routine 09/03/2019 7:55 AM CDT CBC W/PLT COUNT & AUTO STAT 09/03/2019 DIFFERENTIAL 6:22 AM CDT TROPONIN I STAT 09/03/2019 6:22 AM CDT PT/APTT STAT 09/03/2019 6:22 AM CDT CREATINE KINASE (CK) STAT 09/03/2019 6:22 AM CDT CBC W/PLT COUNT & AUTO STAT 09/03/2019 DIFFERENTIAL 6:22 AM CDT BASIC METABOLIC PANEL (7) STAT 09/03/2019 6:22 AM CDT ECG 12-LEAD Routine 09/03/2019 5:[address]/CTA CAROTID STAT 09/03/2019 5:51 AM CDT CTA BRAIN STAT 09/03/2019 5:[address] BRAIN/STROKE TEST STAT 09/03/2019 DESIGN 5:51 AM CDT POCT-GLUCOSE METER Routine 09/03/2019 5:41 AM CDT ED ECG INTERPRETATION Routine 09/03/2019 4:57 AM CDT after 04/08/2019 Results * POC-Glucose meter (09/29/2019 11:34 AM WELDER SETTER [employer]ACHINE) Only the most recent of 107 results within the time period is included. POC-Glucose Meter 192 (H)Comment: : TESTED AT 70 - 110 mg/dL [facility] [address] [facility] [address], [facility] [address]: Environmental Laboratory Technician/Printing Plate Clerk ID = [id number] for LAM MARTINEZ Specimen Blood Performing Organization Address [facility] [place] Ph one Number [facility] [address] [place], [place] [address] [facility] * CBC (Hemogram only) (09/29/2019 3:33 AM WELDER SETTER E[employer] MACHINE) Only the most recent of 3 results within the time period is included. WBC 5.6 3.5 - 10.5 K/L [facility] RBC 5.17 4.63 - 6.08 M/L [facility] Hemoglobin 14.9 13.7 - 17.5 GM/DL [facility] Hematocrit 44.4 40.1 - 51.0 % [facility] [place] MCV 85.9 79.0 - 92.2 fL [facility] [place] MCH 28.8 25.7 - 32.2 pg [facility] MCHC 33.6 32.3 - 36.5 GM/DL [facility] RDW 12.8 11.6 - 14.4 % [facility] [place] Platelets 235 150 - 450 K/CU MM [facility] MPV 9.5 9.4 - 12.4 fL [facility] [place] Specimen Blood Performing Organization Address [facility] [place] one Number [place] [id number] [place], [place] [address] [place] * Basic Metabolic Panel (09/29/2019 3:33 AM WELDER SETTER [employer] MACHINE) Only the most recent of 7 results within the time period is included. Sodium 138 136 - 145 meq/L [facility] [place] Potassium 4.2Comment: Specimen slightly 3.5 - 5.1 meq/L [facility] hemolyzed - [place] Chloride 105 98 - 107 meq/L [facility] [place] CO2 26 22 - 29 meq/L [facility] [place] BUN 11 7 - 21 mg/dL [facility] [place] Creatinine 0.63Comment: Specimen slightly 0.57 - 1.25 mg/ dL [facility] hemolyzed - [place] Glucose 138 (H) 70 - 105 mg/dL [facility] [place] Calcium 8.8 8.4 - 10.2 mg/dL [facility] [place] EGFR 128Comment: ESTIMATED GFR IS mL/min/1.73 sq m [facility] NOT ACCURATE CREATININE - [place] CLEARANCE IN PREDICTING GLOMERULAR FILTRATION RATE. ESTIMATED GFR IS NOT APPLICABLE FOR DIALYSIS PATIENTS. Specimen Blood Performing Organization Address City/State/Zipcode Ph one Number [facility] - [address], [place] [address] [place] * [place] esoph swallow funct with cine video (09/22/2019 12:29 PM [employer]) Specimen Narrative Performed At FINAL REPORT GE RIS EXAM: Modified barium swallow INDICATION: Dysphagia COMPARISON: None FINDINGS: This examination was conducted in conju nction with speech pathologist.Patient was given, by m out, multiple consistencies. <No aspiration..> Fluoro time: 1:28 IMPRESSION: <No visualized aspiration.Please se e speech pathology report for detailed description and recommendation s.> Signed: Cory Francis MD Report Verified Date/Time: 9 13:23:40 Reading Location: [facility] Ro 1 - B01.627 Procedure Note Interface, External Ris In - 09/22/2019 1:25 PM [employer] FINAL REPORT EXAM: Modified barium swallow INDICATION: Dysphagia COMPARISON: None FINDINGS: This examination was conducted in conjunction with speech pathologist. Patient was given, by mouth, multiple consistencies. <No aspiration..> Fluoro time: 1:28 IMPRESSION: <No visualized aspiration. Please see speech pathology report for detailed description and recommendations.> Signed: Cory Francis MD Report Verified Date/Time: 09/22/2019 13:23:40 Reading Location: [facility] Reading Room [address] [place] [address] Performing Organization Address [facility] [place] one Number GE RIS * ARRYTHMIA IMPLANT REPORT - SCAN (09/10/2019 2:11 PM WELDER SETTER ELECTRON BEAM MACHINE) Narrative Performed At This result has an attachment that is n ot available. * RHYTHM STRIP - SCAN (09/10/2019 2:10 PM WELDER SETTER ELECTRON BEAM MACHINE) Only the most recent of 2 results within the time period is included. Narrative Performed At This result has an attachment that is n ot available. 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 Ventricular Rate 59 BPM Atrial Rate 59 BPM P-R Interval 200 ms QRS Duration 80 ms Q-T Interval 424 ms QTC Calculation(Bazett) 419 ms P [place] 54 degrees R [place] -2 degrees T [place] 8 degrees Sinus bradycardia Normal ECG 03 Sep 2019 No significant changes Confirmed by MD SALINAS YOCHAI ([id number]) on 09/10/2019 7:26:28 PM Performing Organization Address [facility] one Number GE MUSE * CBC with platelet count + automated diff (09/09/2019 4:21 AM WELDER SETTER ELECTRON BEAM MACHINE) Only the most recent of 5 results within the time period is included. WBC 7.2 3.5 - 10.5 K/L [facility] RBC 5.71 4.63 - 6.08 M/L [facility] Hemoglobin 15.9 13.7 - 17.5 GM/DL [facility] Hematocrit 48.0 40.1 - 51.0 % [facility] [place] MCV 84.1 79.0 - 92.2 fL [facility] [place] MCH 27.8 25.7 - 32.2 pg [facility] [place] MCHC 33.1 32.3 - 36.5 GM/DL [facility] RDW 13.6 11.6 - 14.4 % [facility] [place] Platelets 183 150 - 450 K/CU MM [facility] MPV 9.7 9.4 - 12.4 fL [facility] [place] % Neutros 60 % [facility] [place] % Lymphs 28 % [facility] [place] % Monos 10 % [facility] [place] % Eos 1 % [facility] [place] % Baso 0 % [facility] [place] # Neutros 4.30 1.78 - 5.38 K/L [facility] # Lymphs 2.03 1.32 - 3.57 K/L [facility] # Monos 0.72 0.30 - 0.82 K/L [facility] # Eos 0.06 0.04 - 0.54 K/L [facility] # Baso 0.03 0.01 - 0.08 K/L [facility] Immature 0 0 - 1 % [facility] Granulocytes-Relative - [place] Specimen Blood Performing Organization Address City/State/Zipcode Ph one Number [facility] [address], [place] [address] [place] * Comprehensive metabolic panel (09/09/2019 4:21 AM WELDER SETTER ELECTRON BEAM MACHINE) Protein, Total 6.4 6.0 - 8.3 gm/dL [facility] [place] Albumin 4.1 3.5 - 5.0 g/dL [facility] [place] Alkaline Phosphatase 96 40 - 150 U/L [facility] [place] Total Bilirubin 1.0 0.2 - 1.2 mg/dL [facility] [place] Sodium 135 (L) 136 - 145 meq/L [facility] [place] Potassium 3.9 3.5 - 5.1 meq/L [facility] [place] Chloride 103 98 - 107 meq/L [facility] [place] CO2 24 22 - 29 meq/L [facility] [place] BUN 13 7 - 21 mg/dL [facility] [place] Creatinine 0.61 0.57 - 1.25 mg/dL [facility] Glucose 175 (H) 70 - 105 mg/dL [facility] [place] Calcium 8.3 (L) 8.4 - 10.2 mg/dL [facility] AST 22 5 - 34 U/L [facility] [place] ALT 29 6 - 55 U/L [facility] [place] EGFR 133Comment: ESTIMATED GFR IS mL/min/1.73 sq m [facility] NOT ACCURATE CREATININE - [place] CLEARANCE IN PREDICTING GLOMERULAR FILTRATION RATE. ESTIMATED GFR IS NOT APPLICABLE FOR DIALYSIS PATIENTS. Specimen Blood Performing Organization Address City/State/Zipcode Ph one Number [facility] - [address], [place] [address] [place] * CT brain without IV contrast (09/06/2019 11:01 PM CDT) Specimen Narrative Performed At FINAL REPORT [facility] EXAM: CT, BRAIN, WITHOUT CONTRAST CLINICAL INDICATION: Stroke follow-up. TECHNIQUE:Helical CT images from sk ull base to vertex without IV contrast. This exam was performed accor ding to our departmental dose-optimization program, which includ es automated exposure control, adjustment of the mA and/or kV accordin g to patient size and/or use of iterative reconstruction technique. COMPARISON: 09/03/2019 MRI, 09/03/2019 CT. FINDINGS: Parenchyma: Evolving focal infarctions in the right thalamus, right aspect of the splenium, and right occip ital lobe correlating to MRI and are now more conspicuous on CT, as expected. No evidence of new acute infarction. Remote infarctions of the left occipital lobe and left neil radiata. No hemorrhage. No mass or mass effect. Extra-axial Collection:None Ventricular System:Ex vacuo enlarge d without hydrocephalus Dural Venous Sinuses:Normal Osseous Structures:Normal Included Orbits: Normal Paranasal Sinuses:Predominantly felipe ar Tympanomastoid Cavities:Normal Other:Atherosclerotic intracranial calcifications are present. IMPRESSION: 1. Evolving small focal infarctions of the right TEMPLE MEAT CUTTER territory which correlate to recent MRI. No hemorrhage or evidence of new infarction. 2. Remote infarctions of the left occip ital lobe and left neil radiata. Signed: Sandip Elder MD Report Verified Date/Time: 9 23:11:56 Procedure Note Interface, External Ris In - 09/06/2019 11:14 PM CDT FINAL REPORT EXAM: CT, BRAIN, WITHOUT CONTRAST CLINICAL INDICATION: Stroke follow-up. TECHNIQUE: Helical CT images from skull base to vertex without IV contrast. This exam was performed according to our departmental dose-optimization program, which includes automated exposure control, adjustment of the mA and/or kV according to patient size and/or use of iterative reconstruction technique. COMPARISON: 09/03/2019 MRI, 09/03/2019 CT. FINDINGS: Parenchyma: Evolving focal infarctions in the right thalamus, right aspect of the splenium, and right occipital lobe correlating to MRI and are now more conspicuous on CT, as expected. No evidence of new acute infarction. Remote infarctions of the left occipital lobe and left neil radiata. No hemorrhage. No mass or mass effect. Extra-axial Collection: None Ventricular System: Ex vacuo enlarged without hydrocephalus Dural Venous Sinuses: Normal Osseous Structures: Normal Included Orbits: Normal Paranasal Sinuses: Predominantly clear Tympanomastoid Cavities: Normal Other: Atherosclerotic intracranial calcifications are present. IMPRESSION: 1. Evolving small focal infarctions of t he right TEMPLE ME[employer] CUTTER territory which correlate to recent MRI. No hemorrhage or evidence of new infarction. 2. Remote infarctions of the left occipi mihir lobe and left neil radiata. Signed: Sandip Elder MD Report Verified Date/Time: 09/06/2019 23:11:56 Performing Organization Address [facility] one Number GE RIS * Vitamin B12 and Folate (09/04/2019 4:31 AM CDT) Vitamin B12 350 213 - 816 pg/mL [facility] Folate 10.4 >=7.0 ng/mL [facility] Specimen Blood Performing Organization Address [facility] [place] one Number [address] [facility] * Hemoglobin A1c (09/04/2019 4:31 AM CDT) Hemoglobin A1C 7.8 (H) 4.3 - 6.1 % [facility] Specimen Blood Performing Organization Address [facility] [place] one Number [address] [facility] * Fasting lipid panel (09/04/2019 4:31 AM CDT) Triglycerides 206 mg/dL [facility] Cholesterol 172 mg/dL [facility] HDL 37 mg/dL [facility] LDL Calculated 94 mg/dL [facility] Specimen Blood Narrative Performed At Triglyceride Reference Range: [facility] Low Risk <150 [facility] [id number] High Risk 200-499 Very High Risk>=500 Cholesterol Reference Range: Low Risk <200 [id number] High Risk>240 HDL Cholesterol Reference Range: Low Risk >=60 High Risk <40 LDL Cholesterol Reference Range: Optimal<100 Near [id number] Very High >=190 Fasting Performing Organization Address [facility] [place] one Number [address] [facility] * ECHOCARDIOGRAM REPORT - SCAN (09/03/2019 9:23 PM CDT) Narrative Performed At This result has an attachment that is n ot available. * 2D Echo W/Doppler(CW/PW/Color) (09/03/2019 3:28 PM CDT) Ejection Fraction [facility] ECHO HEARTLAB [facility] Specimen Narrative Performed At Transthoracic Echocardiography Report (TTE) [facility] ECH O HEARTLAB Demographics [facility] Patient Name MUKUL YAP Date of Study 09/03/2019 DARCI [id number] Gender Male Visit Number [id number] [id number] Room Number 923 Number Date of Birth1955 Referring Physician Estela Restrepo MD Age64 year(s)Marketing Support Specialist Madai Mar [facility] AnalysCarter Johnson, AttilaStEdyta Satniago MD Procedure Type of Study TTE procedure:2DECHO W DO PPLER(CW/PW/COLOR) (Routine) Indications:Suspected cardiac source of emboli. Clinical History HGB 15.9 HCT 48.9 % HTN, DM, L. TEMPLE MEAT CUTTER CVA (04/2018), HX [place], L OOP RECORDER DEFINITY Contrast Medium: Bubble Study. Height: 69 inches Weight: 113.85 kg (25 1 lbs) BSA: 2.27 m^2 BMI: 37.07 kg/m^2 HR: 58 bpm BP: 186/113 mmHg Summary 1. Normal LV size and function. All of the LV segments contract normally . Estimated LVEF is normal (>60%) . 2. Normal RV size and function. 3. Normal diastolic function. 4. Unable to estimate peak systolic PA pressure 5. IV saline contrast injection was neg ative for a PFO (patent foramen ovale) at rest and post Valsalva . 6. Aortic root size (Sinus of Valsalva diameter) is mildly dilated. 4.0 cm Previous Study In comparison with the prior exam on there are no significant changes. Signature Findings Technical Quality: Technically adequate exam. Left Ventricle LV endoc ardium is adequately visualized with IV ultrasound enhancing agent. The left ventricle is chamber size (by vol index) is normal (male - LVED vol - 34-74ml/m2). LV septal thickness is mildly increased (1.2-1.4cm). LV posterior wall thickness is normal (0.6-1.1cm) . All of the LV segments contract normally . Global LV systolic function normal . Estimated LVEF by qualitative assessment is normal (>60%) . Normal diastolic function. Left AtriumLA s ize is normal (16-34 ml/m2) . Right VentricleThe righ t ventricular chamber size and systolic function are within normal limits. Right Atrium RA siz e is normal. Atrial SeptumIV thierno ine contrast injection was negative for a PFO (patent foramen ovale) at rest and post Valsalva . Aortic Valve Mild A oV cusp calcification. Mild aortic regurgitation. Mitral Valve Mild M V leaflet thickening. Trace mitral regurgitation. Tricuspid ValveTV struc ture is normal. A trace of tricuspid regurgitation. Unable to estimate peak systolic PA pressure; inadequate TR velocity signal. Pulmonic Valve Normal P V structure and function by limited views and Doppler. Aorta Aortic root size (Sinus of Valsalva diameter) is mildly dilated. 4.0 cm PericardiumNo p ericardial effusion is visualized. IVC/SVC/PA/PV/PleuralThe estimated RA pressure by IVC dynamics 0-5mmHg . Chambers/Structures Left Atrium LA Volume: 37.83 ml LA Area: 15.17 cm^2 LA Vol. Index: 17 ml/m^2 Left Ventricle LVIDd: 4.9 cm LVIDs: 3.65 cm LV Septum Diastolic: 1.28 cm LV PW Diastolic: 1.16 cm LV FS: 25.5 % LVEDV Harrell's:128.49 ml LVEDVI: 57 ml/m^2 LVOT Diameter: 2.32 cm Aorta Ao Root S of Esther.: 4.02 cm Doppler/Quantitative Measurements Mitral Valve MV Peak E-Wave: 0.76 m/s MV Peak A-Wave: 0.69 m/s E/A Ratio: 1.09 Peak Gradient: 2.29 mmHg Deceleration Time: 169.8 msec MV Lior. Peak: Tissue Doppler E' Lateral Velocity: 0.07 m/s Aortic Valve Peak Velocity: 1.57 m/s Mean Velocity: 1.09 m/s Peak Gradient: 9.88 mmHg Mean Gradient: 5.19 mmHg AV Area (continuity): 2.5 cm^2 AV VTI: 31.88 cm AV DVI: 0.59 LVOT Peak Velocity: 0.94 m/s Peak Gradient: 3.53 mmHg Mean Velocity: 0.65 m/s Mean Gradient: 1.93 mmHg LVOT Diameter: 2.32 cm LVOT VTI: 18.86 cm LVOT Area: 4.23 cm^2 LVOT SV:79.69 ml LVOT CO: 4.62 l/min LVOT CI: 2.04 l/min/m^2 Procedure Note Interface, External Ris In - 09/03/2019 7:05 PM CDT Transthoracic Echocardiography Report (TTE) Demographics Patient Name MUKUL YAP Date of Study 09/03/2019 DARCI Gender Male Visit Number [id number] Race Room Number 923 Number Date of 1955 Referring Physician Estela Restrepo MD Age 64 year(s) Marketing Support Specialist Madai Mar [facility] Wedding Planning Internship Whitney Johnson, Interpreting Claire Cuadra, [facility] Physician Procedure Type of Study TTE procedure:2DECHO W DOPPLER(CW/PW/COLOR) (Routine) Indications:Suspected cardiac source of emboli. Clinical History HGB 15.9 HCT 48.9 % HTN, DM, L. TEMPLE MEAT CUTTER CVA (04/2018), HX TX, LOOP RECORDER DEFINITY Contrast Medium: Bubble Study. Height: 69 inches Weight: 113.85 kg (251 lbs) BSA: 2.27 m^2 BMI: 37.07 kg/m^2 HR: 58 bpm BP: 186/113 mmHg Summary 1. Normal LV size and function. All of the LV segments contract normally . Estimated LVEF is normal (>60%) . 2. Normal RV size and function. 3. Normal diastolic function. 4. Unable to estimate peak systolic PA pressure 5. IV saline contrast injection was negative for a PFO (patent foramen ovale) at rest and post Valsalva . 6. Aortic root size (Sinus of Valsalva diameter) is mildly dilated. 4.0 cm Previous Study In comparison with the prior exam on 04/04/2018 there are no significant changes. Signature Findings Technical Quality: Technically adequate exam. Left Ventricle LV endocardium is adequately visualized with IV ultrasound enhancing agent. The left ventricle is chamber size (by vol index) is normal (male - LVED vol - 34-74ml/m2). LV septal thickness is mildly increased (1.2-1.4cm). LV posterior wall thickness is normal (0.6-1.1cm) . All of the LV segments contract normally . Global LV systolic function normal . Estimated LVEF by qualitative assessment is normal (>60%) . Normal diastolic function. Left Atrium LA size is normal (16-34 ml/m2) . Right Ventricle The right ventricular chamber size and systolic function are within normal limits. Right Atrium RA size is normal. Atrial Septum IV saline contrast injection was negative for a PFO (patent foramen ovale) at rest and post Valsalva . Aortic Valve Mild AoV cusp calcification. Mild aortic regurgitation. Mitral Valve Mild MV leaflet thickening. Trace mitral regurgitation. Tricuspid Valve TV structure is normal. A trace of tricuspid regurgitation. Unable to estimate peak systolic PA pressure; inadequate TR velocity signal. Pulmonic Valve Normal PV structure and function by limited views and Doppler. Aorta Aortic root size (Sinus of Valsalva diameter) is mildly dilated. 4.0 cm Pericardium No pericardial effusion is visualized. IVC/SVC/PA/PV/Pleural The estimated RA pressure by IVC dynamics 0-5mmHg . Chambers/Structures Left Atrium LA Volume: 37.83 ml LA Area: 15.17 cm^2 LA Vol. Index: 17 ml/m^2 Left Ventricle LVIDd: 4.9 cm LVIDs: 3.65 cm LV Septum Diastolic: 1.28 cm LV PW Diastolic: 1.16 cm LV FS: 25.5 % LVEDV Harrell's:128.49 ml LVEDVI: 57 ml/m^2 LVOT Diameter: 2.32 cm Aorta Ao Root S of Esther.: 4.02 cm Doppler/Quantitative Measurements Mitral Valve MV Peak E-Wave: 0.76 m/s MV Peak A-Wave: 0.69 m/s E/A Ratio: 1.09 Peak Gradient: 2.29 mmHg Deceleration Time: 169.8 msec MV Lior. Peak: Tissue Doppler E' Lateral Velocity: 0.07 m/s Aortic Valve Peak Velocity: 1.57 m/s Mean Velocity: 1.09 m/s Peak Gradient: 9.88 mmHg Mean Gradient: 5.19 mmHg AV Area (continuity): 2.5 cm^2 AV VTI: 31.88 cm AV DVI: 0.59 LVOT Peak Velocity: 0.94 m/s Peak Gradient: 3.53 mmHg Mean Velocity: 0.65 m/s Mean Gradient: 1.93 mmHg LVOT Diameter: 2.32 cm LVOT VTI: 18.86 cm LVOT Area: 4.23 cm^2 LVOT SV:79.69 ml LVOT CO: 4.62 l/min LVOT CI: 2.04 l/min/m^2 Performing Organization Address City/State/[facility] Ph one Number [facility]CHO [facility] * MR brain without IV contrast (09/03/2019 2:40 PM CDT) Specimen Narrative Performed At FINAL REPORT Dextr MR, BRAIN, WITHOUT CONTRAST INDICATION: Stroke, follow up TECHNIQUE: Multiplanar, multisequence M R imaging of the brain was obtained. COMPARISON: None FINDINGS: Foci of restricted diffusion within the paramedian occipital lobe, thalamus and occipital pole on the righ t with concomitant decreased signal on ADC and FLAIR hyperintensity compatible with multiple right TEMPLE ME[employer]TER distribution acute infarcts. Remote infarct of the left caudate and centrum semiovale. Remote infarct o f the left occipital pole in the left TEMPLE ME[employer]TER distribution. Brain parenc hyma is otherwise normal in morphology. Midline structures are norm ally developed.No abnormal susceptibility. Scattered T2/FLAIR hyperintense foci wi thin the periventricular and subcortical white matter are nonspecifi c, however, statistically represent chronic microvascular ischemi c changes. No hydrocephalus. Orbits are within normal limits. No obstructive paranasal sinus disease. IMPRESSION: Acute subcentimeter infarcts within the right TEMPLE ME[employer]UTTER distribution Signed: Maricel Hatch MD Report Verified Date/Time: 14:52:53 Reading Location: [facility] Radiolo gy Reading Room Procedure Note Interface, External Ris In - 09/03/2019 2:55 PM CDT FINAL REPORT MR, BRAIN, WITHOUT CONTRAST INDICATION: Stroke, follow up TECHNIQUE: Multiplanar, multisequence MR imaging of the brain was obtained. COMPARISON: None FINDINGS: Foci of restricted diffusion within the paramedian occipital lobe, thalamus and occipital pole on the right with concomitant decreased signal on ADC and FLAIR hyperintensity compatible with multiple right TEMPLE ME[employer] CUTTER distribution acute infarcts. Remote infarct of the left caudate and centrum semiovale. Remote infarct of the left occipital pole in the left TEMPLE ME[employer] CUTTER distribution. Brain parenchyma is otherwise normal in morphology. Midline structures are normally developed. No abnormal susceptibility. Scattered T2/FLAIR hyperintense foci within the periventricular and subcortical white matter are nonspecific, however, statistically represent chronic microvascular ischemic changes. No hydrocephalus. Orbits are within normal limits. No obstructive paranasal sinus disease. IMPRESSION: Acute subcentimeter infarcts within the right TEMPLE ME[employer] CUTTER distribution Signed: Maricel Hatch MD Report Verified Date/Time: 09/03/2019 14:52:53 Reading Location: [facility] Radiology Reading Room Performing Organization Address City/State/Zipcode Ph one Number Dextr * XR chest 1 view portable / bedside (09/03/2019 1:05 PM CDT) Specimen Narrative Performed At FINAL REPORT Dextr INDICATION: MRI screen COMPARISON: April 04, 2018 TECHNIQUE: Single frontal view of the c hest. FINDINGS: Lungs and pleura: Clear lungs. No effus ion. Heart and mediastinum: Normal heart siz e. Unremarkable mediastinal contours. Osseous structures: No acute abnormalit y. Other: None. IMPRESSION: No acute intrathoracic abnormality. Signed: Maricel Hatch MD Report Verified Date/Time: 9 13:14:17 Reading Location: [facility] Radiolo gy Reading Room Procedure Note Interface, External Ris In - 09/03/2019 1:24 PM CDT FINAL REPORT INDICATION: MRI screen COMPARISON: April 04, 2018 TECHNIQUE: Single frontal view of the chest. FINDINGS: Lungs and pleura: Clear lungs. No effusion. Heart and mediastinum: Normal heart size. Unremarkable mediastinal contours. Osseous structures: No acute abnormality. Other: None. IMPRESSION: No acute intrathoracic abnormality. Signed: Maricel Hatch MD Report Verified Date/Time: 09/03/2019 13:14:17 Reading Location: [facility] Radiology Reading Room Performing Organization Address City/State/Zipcode Ph one Number GE RIS * Urinalysis with Microscopic If Indicated (09/03/2019 7:55 AM CDT) Color, UA Yellow [facility] Clarity, UA Clear [facility] Specific [place], UA 1.008 1.001 - 1.035 [facility] pH, UA 5.5 5.0 - 8.0 [facility] Protein, UA Negative Negative [facility] Glucose, UA Negative Negative [facility] Ketones, UA Negative Negative [facility] Bilirubin, UA Negative Negative [facility] Blood, UA Negative Negative [facility] Nitrite, UA Negative Negative [facility] Leukocytes, UA Negative Negative [facility] Urobilinogen, UA 0.2 0.2 - 1.0 mg/dL [facility] Specimen Source [facility] Specimen Urine Performing Organization Address [facility] [place] one Number [address] [facility] * TSH/Free T4 If Indicated (09/03/2019 7:55 AM CDT) TSH 1.12 0.35 - 4.94 uIU/mL [facility] Specimen Blood Performing Organization Address [facility] Ph one Number [place] [address] [facility] * Homocysteine (09/03/2019 7:55 AM CDT) Homocysteine 8.1 5.1 - 15.4 umol/L [facility] Specimen Blood Performing Organization Address City/[facility] [place] one Number [place] [address] [facility] * PT/aPTT (09/03/2019 6:22 AM CDT) Protime 12.8 11.9 - 14.2 seconds [facility] INR 1.0 <=5.9 [facility] PTT 30.3 22.5 - 36.0 seconds [facility] Specimen Blood Narrative Performed At Effective 04/02/2019: PT Reference Range Change [facility] New: 11.9-14.2Previous: 11.7-14.7 [facility]TER RECOMMENDED COUMADIN/WARFARIN INR THERA PY RANGES STANDARD DOSE: 2.0-3.0Includes: PRO PHYLAXIS for venous thrombosis, systemic embolization; TREATMENT for venous thro mbosis and/or pulmonary embolus. HIGH RISK: Target INR is 2.5-3.5 for pa tients wiht mechanical heart valves. Performing Organization Address [facility] [place] one Number [place] [address] 0 [phone] [place] [address] * Troponin I (not available at [facility] [place]) (09/03/2019 6:22 AM CDT) Troponin I <0.01 0.00 - 0.03 ng/mL [facility] Specimen Blood Narrative Performed At Troponin I (TnI) levels must be interpreted in the co ntext of the presenting [facility] symptoms and the clinical findings. Elevated TnI leve ls indicate myocardial [facility] damage, but are not specific for ischem ic heart disease. Elevated TnI levels are seen in patients with other cardiac con ditions (including myocarditis and congestive heart failure), and slight T nI elevations occur in patients with other conditions, including sepsis, julianne al failure, acidosis, acute neurological disease, and persistent tachyarrhythmia . Performing Organization Address [facility] [place] one Number [place] [address] [phone] [place] [address] * Cardiac Enzymes - CPK (09/03/2019 6:22 AM CDT) Total CK 37 29 - 200 U/L [facility] Specimen Blood Performing Organization Address [facility] [place] one [place] [address] 0 [phone] [place] [address] * CT brain/stroke protocol (09/03/2019 5:51 AM CDT) Specimen Narrative Performed At FINAL REPORT Dextr CLINICAL HISTORY: Left-sided weakness, ataxia COMPARISON: 04/04/2018 Multiple axial images of the brain were performed without IV contrast. This exam was performed according to [facility] departmental dose-optimization program, which includ es automated exposure control, adjustment of the mA and/or kV accordin g to patient size and/or use of the iterative reconstruction techniq ue. Images were performed within 24 hours of arrival at the [facility]. Intracranial hemorrhage: None. Brain parenchyma: Remote infarcts in th e left occipital lobe, left basal ganglia and neil radiata. Diffu se parenchymal volume loss. Scattered subcortical and periventricul ar non-specific white matter hypodensities suggestive of microangiop athy. Ventricles, sulci and basal cisterns: E x vacuo prominence Extra-axial spaces: Normal. Midline shift: None. Visualized vasculature: Atherosclerotic calcifications. Cranium: No significant findings. Skullbase: No significant findings. Paranasal sinuses: No significant findi ngs. IMPRESSION: No definite acute intracranial abnormal ity. There is no mass lesion, intracranial hemorrhage or CT evidence of acute stroke. Chronic postischemic, microvascular and involutional changes. Please note that CT is insensitive in t he detection of acute ischemia. The examination was discussed with Dr. Jordan dated 0505 hours on the date of the examination. Signed: Eagle Jacobo MD Report Verified Date/Time: 9 05:08:25 Procedure Note Interface, External Ris In - 09/03/2019 5:52 AM CDT FINAL REPORT CLINICAL HISTORY: Left-sided weakness, ataxia COMPARISON: 04/04/2018 Multiple axial images of the brain were performed without IV contrast. This exam was performed according to our departmental dose-optimization program, which includes automated exposure control, adjustment of the mA and/or kV according to patient size and/or use of the iterative reconstruction technique. Images were performed within 24 hours of arrival at the facility. Intracranial hemorrhage: None. Brain parenchyma: Remote infarcts in the left occipital lobe, left basal ganglia and neil radiata. Diffuse parenchymal volume loss. Scattered subcortical and periventricular non-specific white matter hypodensities suggestive of microangiopathy. Ventricles, sulci and basal cisterns: Ex vacuo prominence Extra-axial spaces: Normal. Midline shift: None. Visualized vasculature: Atherosclerotic calcifications. Cranium: No significant findings. Skullbase: No significant findings. Paranasal sinuses: No significant findings. IMPRESSION: No definite acute intracranial abnormality. There is no mass lesion, intracranial hemorrhage or CT evidence of acute stroke. Chronic postischemic, microvascular and involutional changes. Please note that CT is insensitive in the detection of acute ischemia. The examination was discussed with Dr. Jordan dated 0505 hours on the date of the examination. Signed: Eagle Jacobo MD Report Verified Date/Time: 09/03/2019 05:08:25 Performing Organization Address City/State/Zipcode Ph one Number Dextr * CTA carotid (09/03/2019 5:51 AM CDT) Specimen Narrative Performed At FINAL REPORT Dextr CT, CTANGIOBRAIN INDICATION: Neuro deficit, acute, strok e suspected Symptoms onset less than 6 hours and NI HSS 6 or greater COMPARISON: CT head of the same date TECHNIQUE: Rapid acquisition spiral images were ob tained between the aortic arch and the cranial vertex during intraveno us contrast infusion to reconstruct axial images and angiograph ic 3D maximum intensity projections (MIP). 3-D volumetric refor matted images were created at a dedicated workstation. Stenosis evaluation reported in complia nce with NASCET criteria. DOSE REDUCTION: Dose modulation, iterat nelly reconstruction, and/or weight-based adjustment of the mA/kV wa s utilized to reduce the radiation dose to as low as reasonably achievable. FINDINGS: CT BRAIN: Cerebral parenchyma: Redemonstrated rem ote infarcts in the left occipital lobe, left basal ganglia and left neil radiata. Midline structures: Normally positioned . Cerebellum and brainstem: Normal. Ventricles: Extra-axial enlargement Extra-axial spaces: Unremarkable. Calvarium and skull base: Intact. Paranasal sinuses and mastoid air cells : Mild mucosal thickening in the left maxillary sinus Orbital contents: Included portions unr emarkable. Other: Poor dentition with multiple ero sions and periapical lucencies, most prominent at the left m axillary teeth. CTA BRAIN: Internal carotid arteries: Petrous, cav ernous and supraclinoid portions patent. Mild atherosclerotic c alcification of the bilateral distal ICAs, similar to previous. Middle cerebral arteries: Patent to dis mihir branches. Anterior cerebral arteries: Patent. Int act A-comm. Basilar system: The right vertebral art lexi terminates in the right PICA. There is a patent distal left francesco tebral artery and basilar artery. There is minimal atheroscleroti c calcification of the distal vertebral artery. Posterior cerebral arteries:Patent beyo nd the quadrigeminal segments. Venous opacification: Major dural sinus es unremarkable for bolus timing. Additional findings: None. CTA NECK: Common carotid arteries: The common car otid arteries are normal in size. Bifurcations: Stable irregularity of th e left carotid bulb, possibly postoperative. Cervical internal carotid arteries: No flow limiting stenosis. Retropharyngeal course of the right int ernal carotid artery. Vertebral arteries: Dominant left verte bral artery Arch anatomy: The left vertebral artery arises independently from the arch between the left common carotid ar abdulaziz and left subclavian artery origins. There is atheroscleroti c mural irregularity of the aortic arch. Nonvascular findings: Osseous structures: No acute osseous ab normality. Intact calvarium and skull base. Mild degenerative hernández es at C5-C6. Cervical soft tissues: No adenopathy. P atent aerodigestive tract. 1.3 cm right thyroid nodule. Lung apices: No apical consolidation or pneumothorax. 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 No CT evidence of acute infarct. No intrac ranial hemorrhage. No intracranial vascular occlusion. No flow limiting stenosis or dissection. Poor dentition. 1.3 cm right thyroid nodule. Please see below for published recommendations related to follow-up of an incidentally detected thyroid nodule. Para Recommendations for f/u of Inciden mihir Thyroid Nodules (ITN) found on CT, MRI, NM and Extrathyroidal US based on the ACR white paper and Guzman 3-tiered system for loyd ging ITNs: 1.Further evaluatio n by thyroid US recommended for: o Solitary ITN with high risk imaging features (locally invasive nodule or suspicious lymph nodes) o Solitary ITN of any size in pediatric patients <= 18 years of age o Solitary ITN >= 1 cm in axial plane in patients > 18 and < 35 years of age o Solitary ITN >= 1.5 cm in axial plane in patients >= 35 years of age o Heterogeneous enlarged thyroid gland o ITN avid on FDG-PET or other nuclear medicine (MIBI and octreotide) scans. FNA biopsy is also recommended for PET avid nodules. 2.For multiple thyr oid nodules, the above recommendations for solitary ITN are to be applied to t he largest nodule. 3.No US or f/u kojo mmended for ITNs without high risk features in patients with limited life expectancy or significant co-morbidities, unless clinically warra nted. 4.These recommendat ions do not apply to patients with increased risk for thyroid cancer or to patients with symptomatic thyroid disease. Signed: Eagle Jacobo MD Report Verified Date/Time: 9 12:59:45 Procedure Note Interface, External Ris In - 09/08/2019 1:00 PM [employer] FINAL REPORT CT, CTANGIO BRAIN INDICATION: Neuro deficit, acute, stroke suspected Symptoms onset less than 6 hours and NIHSS 6 or greater COMPARISON: CT head of the same date TECHNIQUE: Rapid acquisition spiral images were obtained between the aortic arch and the cranial vertex during intravenous contrast infusion to reconstruct axial images and angiographic 3D maximum intensity projections (MIP). 3-D volumetric reformatted images were created at a dedicated workstation. Stenosis evaluation reported in compliance with NASCET criteria. DOSE REDUCTION: Dose modulation, iterative reconstruction, and/or weight-based adjustment of the mA/kV was utilized to reduce the radiation dose to as low as reasonably achievable. FINDINGS: CT BRAIN: Cerebral parenchyma: Redemonstrated remote infarcts in the left occipital lobe, left basal ganglia and left neil radiata. Midline structures: Normally positioned. Cerebellum and brainstem: Normal. Ventricles: Extra-axial enlargement Extra-axial spaces: Unremarkable. Calvarium and skull base: Intact. Paranasal sinuses and mastoid air cells: Mild mucosal thickening in the left maxillary sinus Orbital contents: Included portions unremarkable. Other: Poor dentition with multiple erosions and periapical lucencies, most prominent at the left maxillary teeth. CTA BRAIN: Internal carotid arteries: Petrous, cavernous and supraclinoid portions patent. Mild atherosclerotic calcification of the bilateral distal ICAs, similar to previous. Middle cerebral arteries: Patent to distal branches. Anterior cerebral arteries: Patent. Intact A-comm. Basilar system: The right vertebral artery terminates in the right PICA. There is a patent distal left vertebral artery and basilar artery. There is minimal atherosclerotic calcification of the distal vertebral artery. Posterior cerebral arteries:Patent beyond the quadrigeminal segments. Venous opacification: Major dural sinuses unremarkable for bolus timing. Additional findings: None. CTA NECK: Common carotid arteries: The common carotid arteries are normal in size. Bifurcations: Stable irregularity of the left carotid bulb, possibly postoperative. Cervical internal carotid arteries: No flow limiting stenosis. Retropharyngeal course of the right internal carotid artery. Vertebral arteries: Dominant left vertebral artery Arch anatomy: The left vertebral artery arises independently from the arch between the left common carotid artery and left subclavian artery origins. There is atherosclerotic mural irregularity of the aortic arch. Nonvascular findings: Osseous structures: No acute osseous abnormality. Intact calvarium and skull base. Mild degenerative changes at C5-C6. Cervical soft tissues: No adenopathy. Patent aerodigestive tract. 1.3 cm right thyroid nodule. Lung apices: No apical consolidation or pneumothorax. IMPRESSION: Remote left occipital, basal ganglia and neli radiata infarcts. No CT evidence of acute infarct. No intracranial hemorrhage. No intracranial vascular occlusion. No flow limiting stenosis or dissection. Poor dentition. 1.3 cm right thyroid nodule. Please see below for published recommendations related to follow-up of an incidentally detected thyroid nodule. Para Recommendations for f/u of Incidental Thyroid Nodules (ITN) found on CT, MRI, NM and Extrathyroidal US based on the ACR white paper and Guzman 3-tiered system for managing ITNs: 1. Further evaluation by thyroid US recommended for: o Solitary ITN with high risk imaging features (locally invasive nodule or suspicious l ymph nodes) o Solitary ITN of any size in pediatric patients <= 18 years of age o Solitary ITN >= 1 cm in axial plane in patients > 18 and < 35 years of age o Solitary ITN >= 1.5 cm in axial plane in patients >= 35 years of age o Heterogeneous enlarged thyroid gland o ITN avid on FDG-PET or other nuclear medicine (MIBI and octreotide) scans. FNA biopsy is also recommended for PET avid nodules. 2. For multiple thyroid nodules, the above recommendations for solitary ITN are to be applied to the largest nodule. 3. No US or f/u recommended for ITNs without high risk features in patients with limited life expectancy or significant co-morbidities, unless clinically warranted. 4. These recommendations do not apply to patients with increased risk for thyroid cancer or to patients with symptomatic thyroid disease. Signed: Eagle Jacobo MD Report Verified Date/Time: 09/08/2019 12:59:45 Performing Organization Address City/State/Zipcode Ph one Number GE RIS * CTA brain (09/03/2019 5:51 AM CDT) Specimen Narrative Performed At FINAL REPORT Dextr CT, CTANGIOBRAIN INDICATION: Neuro deficit, acute, strok e suspected Symptoms onset less than 6 hours and NI HSS 6 or greater COMPARISON: CT head of the same date TECHNIQUE: Rapid acquisition spiral images were ob tained between the aortic arch and the cranial vertex during intraveno us contrast infusion to reconstruct axial images and angiograph ic 3D maximum intensity projections (MIP). 3-D volumetric refor matted images were created at a dedicated workstation. Stenosis evaluation reported in complia nce with NASCET criteria. DOSE REDUCTION: Dose modulation, iterat nelly reconstruction, and/or weight-based adjustment of the mA/kV wa s utilized to reduce the radiation dose to as low as reasonably achievable. FINDINGS: CT BRAIN: Cerebral parenchyma: Redemonstrated rem ote infarcts in the left occipital lobe, left basal ganglia and left neil radiata. Midline structures: Normally positioned . Cerebellum and brainstem: Normal. Ventricles: Extra-axial enlargement Extra-axial spaces: Unremarkable. Calvarium and skull base: Intact. Paranasal sinuses and mastoid air cells : Mild mucosal thickening in the left maxillary sinus Orbital contents: Included portions unr emarkable. Other: Poor dentition with multiple ero sions and periapical lucencies, most prominent at the left m axillary teeth. CTA BRAIN: Internal carotid arteries: Petrous, cav ernous and supraclinoid portions patent. Mild atherosclerotic c alcification of the bilateral distal ICAs, similar to previous. Middle cerebral arteries: Patent to dis mihir branches. Anterior cerebral arteries: Patent. Int act A-comm. Basilar system: The right vertebral art lexi terminates in the right PICA. There is a patent distal left francesco tebral artery and basilar artery. There is minimal atheroscleroti c calcification of the distal vertebral artery. Posterior cerebral arteries:Patent beyo nd the quadrigeminal segments. Venous opacification: Major dural sinus es unremarkable for bolus timing. Additional findings: None. CTA NECK: Common carotid arteries: The common car otid arteries are normal in size. Bifurcations: Stable irregularity of th e left carotid bulb, possibly postoperative. Cervical internal carotid arteries: No flow limiting stenosis. Retropharyngeal course of the right int ernal carotid artery. Vertebral arteries: Dominant left verte bral artery Arch anatomy: The left vertebral artery arises independently from the arch between the left common carotid ar abdulaziz and left subclavian artery origins. There is atheroscleroti c mural irregularity of the aortic arch. Nonvascular findings: Osseous structures: No acute osseous ab normality. Intact calvarium and skull base. Mild degenerative hernández es at C5-C6. Cervical soft tissues: No adenopathy. P atent aerodigestive tract. 1.3 cm right thyroid nodule. Lung apices: No apical consolidation or pneumothorax. 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 No CT evidence of acute infarct. No intrac ranial hemorrhage. No intracranial vascular occlusion. No flow limiting stenosis or dissection. Poor dentition. 1.3 cm right thyroid nodule. Please see below for published recommendations related to follow-up of an incidentally detected thyroid nodule. Para Recommendations for f/u of Inciden mihir Thyroid Nodules (ITN) found on CT, MRI, NM and Extrathyroidal US based on the ACR white paper and Guzman 3-tiered system for loyd ging ITNs: 1.Further evaluatio n by thyroid US recommended for: o Solitary ITN with high risk imaging features (locally invasive nodule or suspicious lymph nodes) o Solitary ITN of any size in pediatric patients <= 18 years of age o Solitary ITN >= 1 cm in axial plane in patients > 18 and < 35 years of age o Solitary ITN >= 1.5 cm in axial plane in patients >= 35 years of age o Heterogeneous enlarged thyroid gland o ITN avid on FDG-PET or other nuclear medicine (MIBI and octreotide) scans. FNA biopsy is also recommended for PET avid nodules. 2.For multiple thyr oid nodules, the above recommendations for solitary ITN are to be applied to t he largest nodule. 3.No US or f/u kojo mmended for ITNs without high risk features in patients with limited life expectancy or significant co-morbidities, unless clinically warra nted. 4.These recommendat ions do not apply to patients with increased risk for thyroid cancer or to patients with symptomatic thyroid disease. Signed: Eagle Jacobo MD Report Verified Date/Time: 9 06:41:01 Procedure Note Interface, External Ris In - 09/03/2019 6:43 AM CDT FINAL REPORT CT, CTANGIO BRAIN INDICATION: Neuro deficit, acute, stroke suspected Symptoms onset less than 6 hours and NIHSS 6 or greater COMPARISON: CT head of the same date TECHNIQUE: Rapid acquisition spiral images were obtained between the aortic arch and the cranial vertex during intravenous contrast infusion to reconstruct axial images and angiographic 3D maximum intensity projections (MIP). 3-D volumetric reformatted images were created at a dedicated workstation. Stenosis evaluation reported in compliance with NASCET criteria. DOSE REDUCTION: Dose modulation, iterative reconstruction, and/or weight-based adjustment of the mA/kV was utilized to reduce the radiation dose to as low as reasonably achievable. FINDINGS: CT BRAIN: Cerebral parenchyma: Redemonstrated remote infarcts in the left occipital lobe, left basal ganglia and left neil radiata. Midline structures: Normally positioned. Cerebellum and brainstem: Normal. Ventricles: Extra-axial enlargement Extra-axial spaces: Unremarkable. Calvarium and skull base: Intact. Paranasal sinuses and mastoid air cells: Mild mucosal thickening in the left maxillary sinus Orbital contents: Included portions unremarkable. Other: Poor dentition with multiple erosions and periapical lucencies, most prominent at the left maxillary teeth. CTA BRAIN: Internal carotid arteries: Petrous, cavernous and supraclinoid portions patent. Mild atherosclerotic calcification of the bilateral distal ICAs, similar to previous. Middle cerebral arteries: Patent to distal branches. Anterior cerebral arteries: Patent. Intact A-comm. Basilar system: The right vertebral artery terminates in the right PICA. There is a patent distal left vertebral artery and basilar artery. There is minimal atherosclerotic calcification of the distal vertebral artery. Posterior cerebral arteries:Patent beyond the quadrigeminal segments. Venous opacification: Major dural sinuses unremarkable for bolus timing. Additional findings: None. CTA NECK: Common carotid arteries: The common carotid arteries are normal in size. Bifurcations: Stable irregularity of the left carotid bulb, possibly postoperative. Cervical internal carotid arteries: No flow limiting stenosis. Retropharyngeal course of the right internal carotid artery. Vertebral arteries: Dominant left vertebral artery Arch anatomy: The left vertebral artery arises independently from the arch between the left common carotid artery and left subclavian artery origins. There is atherosclerotic mural irregularity of the aortic arch. Nonvascular findings: Osseous structures: No acute osseous abnormality. Intact calvarium and skull base. Mild degenerative changes at C5-C6. Cervical soft tissues: No adenopathy. Patent aerodigestive tract. 1.3 cm right thyroid nodule. Lung apices: No apical consolidation or pneumothorax. IMPRESSION: Remote left occipital, basal ganglia and neil radiata infarcts. No CT evidence of acute infarct. No intracranial hemorrhage. No intracranial vascular occlusion. No flow limiting stenosis or dissection. Poor dentition. 1.3 cm right thyroid nodule. Please see below for published recommendations related to follow-up of an incidentally detected thyroid nodule. Para Recommendations for f/u of Incidental Thyroid Nodules (ITN) found on CT, MRI, NM and Extrathyroidal US based on the ACR white paper and Guzman 3-tiered system for managing ITNs: 1. Further evaluation by thyroid US recommended for: o Solitary ITN with high risk imaging features (locally invasive nodule or suspicious l ymph nodes) o Solitary ITN of any size in pediatric patients <= 18 years of age o Solitary ITN >= 1 cm in axial plane in patients > 18 and < 35 years of age o Solitary ITN >= 1.5 cm in axial plane in patients >= 35 years of age o Heterogeneous enlarged thyroid gland o ITN avid on FDG-PET or other nuclear medicine (MIBI and octreotide) scans. FNA biopsy is also recommended for PET avid nodules. 2. For multiple thyroid nodules, the above recommendations for solitary ITN are to be applied to the largest nodule. 3. No US or f/u recommended for ITNs without high risk features in patients with limited life expectancy or significant co-morbidities, unless clinically warranted. 4. These recommendations do not apply to patients with increased risk for thyroid cancer or to patients with symptomatic thyroid disease. Signed: Eagle Jacobo MD Report Verified Date/Time: 09/03/2019 06:41:01 Performing Organization Address City/State/Zipcode Ph one Number GE RIS * ECG/EKG Interpretation (09/03/2019 4:57 AM CDT) Narrative Performed At Mario Jordan MD 09/035:52 AM ECG/EKG Interpretation Date/Time: 09/03/2019 5:52 AM Performed by: Mario Jordan MD Authorized by: Mario Jordan M D The ECG was interpreted by ED physician . This ECG was not compared with previous ECG(s).The ECG is interpreted as sinus rhythm. Rate is normal rate. [place] is normal. Clinical Impression: non-specific ECGEC G reviewed and does not meet STEMI criteria. Patient tolerance: Patient to lerated the procedure well with no immediate complications after 04/08/2019 Insurance Payer Benefit Subscriber ID Type Phone Address Plan / Group HU[employer] - MEDICARE MGD HUMANA xxxxxxxxx [facility] CARE MEDICARE Contracted ADV [id number] Advance Directives For more information, please contact: [facility] [address] [place] [address] Date Inactivated Comments Code Status Date Activated 09/29/2019 5:04 PM Full Code 09/08/2019 4:38 PM This code status was determined by: Patient 09/08/2019 4:38 PM Full Code 09/08/2019 4:32 PM This code status was determined by: Patient 09/08/2019 4:12 PM Full Code 09/03/2019 7:13 AM This code status was determined by: Patient 05/25/2018 5:00 PM Full Code 05/22/2018 3:09 AM This code status was determined by: Patient 04/08/2018 3:57 PM Full Code 04/04/2018 2:44 AM This code status was determined by: [id number]
--- OUTSIDE RECORDS SUMMARY | 2020-04-08 01:50 | XMS REPORT | Continuity of Care Document ---
Author Author [facility] t Organization [facility] Address [address] [place] [address] Phone Unavailable Care Team Providers Care Stem Cutter Name Role Phone ERICH DEXTER MD PCP UGHWANOGHO, OGHENEMINE UVIEOGHENE Attphys Unavai lable SAMLENIN, NORMAN PHILIPPE Attphys Unavailable ERICH DEXTER Attphys Unavailable UGHWANOGHO, OGHENEMINE UVIEOGHENE Admphys Unavai lable CECIL, RESHAD NEJMUDIN Admphys Unavailable RUSTY FINLEY Admphys Unavailable ABEL BELIA Admphys Unavailable ERICH DEXTER Admphys Unavailable Payers Payer Name Policy Type Policy Number Effective Date Expiration Date S [facility] [id number] I [facility] Problems Condition Name Condition Details Condition Category Status Onset Date Resolution Date Last Treatment Date Treating Clinician Comments Source Chest pain Chest pain Problem Active 2016-01-07 00:00:00 [facility] Cholecystitis Cholecystitis Problem Active 2016-01-07 00:00:00 [facility] Cerebrovascular accident (CVA) CVA (cerebral vascular accident) Pro blem Active [facility] Weakness of left upper extremity Left arm weakness Problem Active [facility] Allergies, Adverse Reactions, Alerts This patient has no known allergies or adverse reactions. Medications Ordered Medication Name Filled Medication Name Start Date Stop Da te Current Medication? Ordering Clinician Indication Dosage Frequency Signature (SIG) Comments Components Source Amlodipine Besylate 10 Mg Tablet Amlodipine Besylate 10 Mg Tablet Yes 10 Daily [facility] Atorvastatin Calcium 20 Mg Tablet Atorvastatin Calcium 20 Mg Tablet Yes 20 Bedtime [facility] Glimepiride 2 Mg Tablet Glimepiride 2 Mg Tablet Yes 2 Daily [facility] Hydrocodone Bit/Acetaminophen ([place] 7.5-325 Tablet) 1 Each Tablet Hydrocodone Bit/Acetaminophen ([place] 7.5-325 Tablet) 1 Each Tablet Yes 1 Every 4 Hours as needed for Pain [facility] Metformin Hcl 500 Mg Tablet Metformin Hcl 500 Mg Tablet Yes 1000 Twice A Day [facility] Metoprolol Tartrate 50 Mg Tablet Metoprolol Tartrate 50 Mg Tablet Yes 50 Twice A Day [facility] Zolpidem Tartrate (Ambien) 10 Mg Tablet Zolpidem Tartrate (A mbien) 10 Mg Tablet Yes 10 Bedtime as needed for Sleep [facility] Hydrocodone Bit/Acetaminophen (Lorc[place] 10-650 Tablet) 1 Each Tablet, Oral Hydrocodone Bit/Acetaminophen (Lorcet 10-650 Tablet) 1 Each Tablet, Oral 2017-12-04 00:00:00 No Prn [facility] Phentermine Hcl 37.5 Mg Tablet, 37.5 Mg Oral Phentermi ne Hcl 37.5 Mg Tablet, 37.5 Mg Oral 2017-12-04 00:00:00 No 37.5 Daily [facility] Tramadol Hcl/Acetaminophen (Ultracet Tablet) 1 Each Ta blet, Oral Tramadol Hcl/Acetaminophen (Ultracet Tablet) 1 Each Tablet, Oral 20 22-11-29 00:00:00 No Every 4 Hours for Pain C HI [facility] Amlodipine Besylate (Norvasc) 10 Mg Tab, 10 Mg Oral Am lodipine Besylate (Norvasc) 10 Mg Tab, 10 Mg Oral 2016-01-07 00:00:00 No 10 Daily [facility] Procedures Procedure Date / Time Performed Performing Clinician [facility] e Computed tomography of brain without radiopaque contrast 201 06-05-30 00:00:00 [facility] Magnetic resonance imaging of brain without contrast 2017-11 00:00:00 [facility] Magnetic resonance angiography of head without contrast 2017 00:00:00 THESTRUP, LARS [facility] Magnetic resonance angiography of neck without contrast 2017 00:00:00 KATELYNN ALCALA [facility] Encounters Start Date/Time End Date/Time Encounter Type Admission Type [facility] Care Department Encounter ID Source 2017-12-04 14:14:00 2017-12-06 17:48:00 Discharged Inpatient ER ERICH DEXTER [facility] [id number] [facility] Results Test Description Test Time Test Comments Results Result Comments Source POCT-GLUCOSE METER 2019-09-29 11:45:00 Test Item POC-GLUCOSE METER (BEAKER) (test code = 1538) 192 mg/dL 70-110 H : TESTED AT [address] [address]: Chemistry Faculty Member/Director Prison ID = [id number] for LAM MARTINEZ POCT-GLUCOSE [id number] 06:41:00* Test Item Value Reference Range Interpretation Comments POC-GLUCOSE METER (BEAKER) (test code = 1538) 147 mg/dL 70-110 H : TESTED AT [address] [address]: Chemistry Faculty Member/Director Prison ID = [id number] for VINAYAK BERRY BASIC METABOLIC [id number] 05:13:00* Test Item Value Reference Range Interpretation Comments SODIUM (BEAKER) (test code = 381) 138 meq/L 136-145 POTASSIUM (BEAKER) (test code = 379) 4.2 meq/L 3.5-5.1 Specimen slightly hemolyzed CHLORIDE (BEAKER) (test code = 382) 105 meq/L 98-107 CO2 (BEAKER) (test code = 355) 26 meq/L 22-29 BLOOD UREA NITROGEN (BEAKER) (test code = 354) 11 mg/dL 7-21 CREATININE (BEAKER) (test code = 358) 0.63 mg/dL 0.57-1.25 Specimen slightly hemolyzed GLUCOSE RANDOM (BEAKER) (test code = 652) 138 mg/dL 70-105 H CALCIUM (BEAKER) (test code = 697) 8.8 mg/dL 8.4-10.2 EGFR (BEAKER) (test code = 1092) 128 mL/min/1.73 sq m ESTIMATED GFR IS NOT ACCURATE CREATININE CLEARANCE IN PREDICTING GLOMERULAR FILTRATION RATE. ESTIMATED GFR IS NOT APPLICABLE FOR DIALYSIS PATIENTS. CBC (HEMOGRAM ONLY)2019-09-29 04:52:00* Test Item Value Reference Range Interpretation Comments WHITE BLOOD CELL COUNT (BEAKER) (test code = 775) 5.6 K/ L 3.5- 10.5 RED BLOOD CELL COUNT (BEAKER) (test code = 761) 5.17 M/ L 4.63-6 .08 HEMOGLOBIN (BEAKER) (test code = 410) 14.9 GM/DL 13.7-17.5 HEMATOCRIT (BEAKER) (test code = 411) 44.4 % 40.1-51.0 MEAN CORPUSCULAR VOLUME (BEAKER) (test code = 753) 85.9 fL 79. 0-92.2 MEAN CORPUSCULAR HEMOGLOBIN (BEAKER) (test code = 751) 28.8 pg 25.7-32.2 MEAN CORPUSCULAR HEMOGLOBIN CONC (BEAKER) (test code = 752) 33.6 GM/DL 32.3-36.5 RED CELL DISTRIBUTION WIDTH (BEAKER) (test code = 412) 12.8 % 11.6-14.4 PLATELET COUNT (BEAKER) (test code = 756) 235 K/CU MM 150-450 MEAN PLATELET VOLUME (BEAKER) (test code = 754) 9.5 fL 9.4-12 .4 POCT-GLUCOSE [id number] 20:55:00* Test Item Value Reference Range Interpretation Comments POC-GLUCOSE METER (BEAKER) (test code = 1538) 212 mg/dL 70-110 H : TESTED AT [place] [address]: Chemistry Faculty Member/Director Prison ID = [id number] for VINAYAK BERRY POCT-GLUCOSE [id number] 17:38:00* Test Item Value Reference Range Interpretation Comments POC-GLUCOSE METER (BEAKER) (test code = 1538) 108 mg/dL 70-110 : TESTED AT [place] [id number]: Chemistry Faculty Member/Director Prison ID = [id number] for OmiwadeConradieta POCT-GLUCOSE [id number] 10:56:00* Test Item Value Reference Range Interpretation Comments POC-GLUCOSE METER (BEAKER) (test code = 1538) 180 mg/dL 70-110 H : TESTED AT [place] [address]: Chemistry Faculty Member/Director Prison ID = [id number] for Matthew Hall POCT-GLUCOSE [id number] 06:17:00* Test Item Value Reference Range Interpretation Comments POC-GLUCOSE METER (BEAKER) (test code = 1538) 132 mg/dL 70-110 H : TESTED AT [place] [address]: Chemistry Faculty Member/Director Prison ID = [id number] for Amolenda, Hudson POCT-GLUCOSE [id number] 20:29:00* Test Item Value Reference Range Interpretation Comments POC-GLUCOSE METER (BEAKER) (test code = 1538) 178 mg/dL 70-110 H : TESTED AT [place] [address]: Chemistry Faculty Member/Director Prison ID = [id number] for MARJORIE WYNNE POCT-GLUCOSE [id number] 19:50:00* Test Item Value Reference Range Interpretation Comments POC-GLUCOSE METER (BEAKER) (test code = 1538) 202 mg/dL 70-110 H : TESTED AT [place] [address]: Chemistry Faculty Member/Director Prison ID = [id number] for Amolenda, Hudson POCT-GLUCOSE [id number] 16:36:00* Test Item Value Reference Range Interpretation Comments POC-GLUCOSE METER (BEAKER) (test code = 1538) 102 mg/dL 70-110 : TESTED AT [place] [address]: Chemistry Faculty Member/Director Prison ID = [id number] for SMILEY, JUCEL FLAVIO POCT-GLUCOSE [id number] 12:22:00* Test Item Value Reference Range Interpretation Comments POC-GLUCOSE METER (BEAKER) (test code = 1538) 185 mg/dL 70-110 H : TESTED AT [place] [address]: Chemistry Faculty Member/Director Prison ID = [id number] for SMILEY, JUCEL FLAVIO POCT-GLUCOSE [id number] 06:37:00* Test Item Value Reference Range Interpretation Comments POC-GLUCOSE METER (BEAKER) (test code = 1538) 223 mg/dL 70-110 H : TESTED AT [place] [address]: Chemistry Faculty Member/Director Prison ID = [id number] for KIERAN SMITH POCT-GLUCOSE [id number] 20:11:00* Test Item Value Reference Range Interpretation Comments POC-GLUCOSE METER (BEAKER) (test code = 1538) 139 mg/dL 70-110 H : TESTED AT [place] [id number]: Chemistry Faculty Member/Director Prison ID = [id number] for MIESHA GRIFFINA POCT-GLUCOSE [id number] 16:33:00* Test Item Value Reference Range Interpretation Comments POC-GLUCOSE METER (BEAKER) (test code = 1538) 127 mg/dL 70-110 H : TESTED AT [place] [address]: Chemistry Faculty Member/Director Prison ID = [id number] for VERONIQUE BAILEY POCT-GLUCOSE [id number] 12:09:00* Test Item Value Reference Range Interpretation Comments POC-GLUCOSE METER (BEAKER) (test code = 1538) 153 mg/dL 70-110 H : TESTED AT [place] [id number]: Chemistry Faculty Member/Director Prison ID = [id number] for VERONIQUE BAILEY POCT-GLUCOSE [id number] 06:42:00* Test Item Value Reference Range Interpretation Comments POC-GLUCOSE METER (BEAKER) (test code = 1538) 154 mg/dL 70-110 H : TESTED AT [place] [address]: Chemistry Faculty Member/Director Prison ID = [id number] for MIESHA GRIFFINA POCT-GLUCOSE [id number] 19:51:00* Test Item Value Reference Range Interpretation Comments POC-GLUCOSE METER (BEAKER) (test code = 1538) 111 mg/dL 70-110 H : TESTED AT [place] [id number]: Chemistry Faculty Member/Director Prison ID = [id number] for MIESHA GRIFFINA POCT-GLUCOSE [id number] 16:16:00* Test Item Value Reference Range Interpretation Comments POC-GLUCOSE METER (BEAKER) (test code = 1538) 169 mg/dL 70-110 H : TESTED AT [place] [id number]: Chemistry Faculty Member/Director Prison ID = [id number] for Venus Nolan POCT-GLUCOSE [id number] 06:53:00* Test Item Value Reference Range Interpretation Comments POC-GLUCOSE METER (BEAKER) (test code = 1538) 139 mg/dL 70-110 H : TESTED AT [place] [address]: Chemistry Faculty Member/Director Prison ID = [id number] for Cory Vega POCT-GLUCOSE [id number] 21:00:00* Test Item Value Reference Range Interpretation Comments POC-GLUCOSE METER (BEAKER) (test code = 1538) 145 mg/dL 70-110 H : TESTED AT [place] [address]: Chemistry Faculty Member/Director Prison ID = [id number] for Jose Vegaw POCT-GLUCOSE [id number] 16:43:00* Test Item Value Reference Range Interpretation Comments POC-GLUCOSE METER (BEAKER) (test code = 1538) 190 mg/dL 70-110 H : TESTED AT [place] [address]: Chemistry Faculty Member/Director Prison ID = [id number] for Nwajiuku, Sharon POCT-GLUCOSE [id number] 12:05:00* Test Item Value Reference Range Interpretation Comments POC-GLUCOSE METER (BEAKER) (test code = 1538) 165 mg/dL 70-110 H : TESTED AT [place] [address]: Chemistry Faculty Member/Director Prison ID = [id number] for Nwajiuku, Sharon POCT-GLUCOSE [id number] 07:09:00* Test Item Value Reference Range Interpretation Comments POC-GLUCOSE METER (BEAKER) (test code = 1538) 169 mg/dL 70-110 H : TESTED AT [place] [address]: Chemistry Faculty Member/Director Prison ID = [id number] for ESEVINAYAK NELSON POCT-GLUCOSE [id number] 21:04:00* Test Item Value Reference Range Interpretation Comments POC-GLUCOSE METER (BEAKER) (test code = 1538) 167 mg/dL 70-110 H : TESTED AT [place] [id number]: Chemistry Faculty Member/Director Prison ID = [id number] for VINAYAK BERRY POCT-GLUCOSE [id number] 16:31:00* Test Item Value Reference Range Interpretation Comments POC-GLUCOSE METER (BEAKER) (test code = 1538) 177 mg/dL 70-110 H : TESTED AT [place] [address]: Chemistry Faculty Member/Director Prison ID = [id number] for Venus Nolan POCT-GLUCOSE [id number] 11:46:00* Test Item Value Reference Range Interpretation Comments POC-GLUCOSE METER (BEAKER) (test code = 1538) 157 mg/dL 70-110 H : TESTED AT [place] [address]: Chemistry Faculty Member/Director Prison ID = [id number] for DARYL SMILEY POCT-GLUCOSE [id number] 06:29:00* Test Item Value Reference Range Interpretation Comments POC-GLUCOSE METER (BEAKER) (test code = 1538) 157 mg/dL 70-110 H : TESTED AT [place] [id number]: Chemistry Faculty Member/Director Prison ID = [id number] for Jose Vegaw POCT-GLUCOSE [id number] 21:19:00* Test Item Value Reference Range Interpretation Comments POC-GLUCOSE METER (BEAKER) (test code = 1538) 159 mg/dL 70-110 H : TESTED AT [place] [id number]: Chemistry Faculty Member/Director Prison ID = [id number] for Vega, Cory POCT-GLUCOSE [id number] 15:52:00* Test Item Value Reference Range Interpretation Comments POC-GLUCOSE METER (BEAKER) (test code = 1538) 145 mg/dL 70-110 H : TESTED AT [place] [id number]: Chemistry Faculty Member/Director Prison ID = [id number] for Matthew Hall ESOPH, SWALLOW FUNCTION, WITH CINE OR [id number] 13:23:00Reason for exam:->dysphagiaFINAL REPORT EXAM: Modified barium swallowINDICATION: DysphagiaCOMPARISON: None FINDINGS: This examination was conducted in conjunction with speech pathologist. Patient was given, by mouth, multiple consistencies. <No aspiration..> Fluoro time: 1:28 IMPRESSION: <No visualized aspiration. Please see speech pathology report for detailed descr iption and recommendations.> Signed: Cory Francis MDReport Verified Date/Time: 09/22/2019 13:23:40 Reading Location: [facility] Reading Room [address] [place] [address] -GLUCOSE [id number] 12:56:00* Test Item Value Reference Range Interpretation Comments POC-GLUCOSE METER (BEAKER) (test code = 1538) 202 mg/dL 70-110 H : TESTED AT [address] [address]: Chemistry Faculty Member/Director Prison ID = [id number] for ERWIN CHOW POCT-GLUCOSE [id number] 06:31:00* Test Item Value Reference Range Interpretation Comments POC-GLUCOSE METER (BEAKER) (test code = 1538) 154 mg/dL 70-110 H : TESTED AT [place] [id number] [facility] [address]: Chemistry Faculty Member/Director Prison ID = [id number] for MIN GRIFFIN BASIC METABOLIC [id number] 05:40:00* Test Item Value Reference Range Interpretation Comments SODIUM (BEAKER) (test code = 381) 138 meq/L 136-145 POTASSIUM (BEAKER) (test code = 379) 4.1 meq/L 3.5-5.1 Specimen slightly hemolyzed CHLORIDE (BEAKER) (test code = 382) 105 meq/L 98-107 CO2 (BEAKER) (test code = 355) 28 meq/L 22-29 BLOOD UREA NITROGEN (BEAKER) (test code = 354) 20 mg/dL 7-21 CREATININE (BEAKER) (test code = 358) 0.61 mg/dL 0.57-1.25 Specimen slightly hemolyzed GLUCOSE RANDOM (BEAKER) (test code = 652) 141 mg/dL 70-105 H CALCIUM (BEAKER) (test code = 697) 8.2 mg/dL 8.4-10.2 L EGFR (BEAKER) (test code = 1092) 133 mL/min/1.73 sq m ESTIMATED GFR IS NOT ACCURATE CREATININE CLEARANCE IN PREDICTING GLOMERULAR FILTRATION RATE. ESTIMATED GFR IS NOT APPLICABLE FOR DIALYSIS PATIENTS. CBC (HEMOGRAM ONLY)2019-09-22 05:33:00* Test Item Value Reference Range Interpretation Comments WHITE BLOOD CELL COUNT (BEAKER) (test code = 775) 5.6 K/ L 3.5- 10.5 RED BLOOD CELL COUNT (BEAKER) (test code = 761) 5.22 M/ L 4.63-6 .08 HEMOGLOBIN (BEAKER) (test code = 410) 14.8 GM/DL 13.7-17.5 HEMATOCRIT (BEAKER) (test code = 411) 44.3 % 40.1-51.0 MEAN CORPUSCULAR VOLUME (BEAKER) (test code = 753) 84.9 fL 79. 0-92.2 MEAN CORPUSCULAR HEMOGLOBIN (BEAKER) (test code = 751) 28.4 pg 25.7-32.2 MEAN CORPUSCULAR HEMOGLOBIN CONC (BEAKER) (test code = 752) 33.4 GM/DL 32.3-36.5 RED CELL DISTRIBUTION WIDTH (BEAKER) (test code = 412) 12.9 % 11.6-14.4 PLATELET COUNT (BEAKER) (test code = 756) 190 K/CU MM 150-450 MEAN PLATELET VOLUME (BEAKER) (test code = 754) 9.7 fL 9.4-12 .4 POCT-GLUCOSE [id number] 20:13:00* Test Item Value Reference Range Interpretation Comments POC-GLUCOSE METER (BEAKER) (test code = 1538) 180 mg/dL 70-110 H : TESTED AT [address] [address]: Chemistry Faculty Member/Director Prison ID = [id number] for MIN GRIFFIN POCT-GLUCOSE [id number] 16:36:00* Test Item Value Reference Range Interpretation Comments POC-GLUCOSE METER (BEAKER) (test code = 1538) 141 mg/dL 70-110 H : TESTED AT [address] [address]: Chemistry Faculty Member/Director Prison ID = [id number] for Sharon Pavon POCT-GLUCOSE [id number] 11:59:00* Test Item Value Reference Range Interpretation Comments POC-GLUCOSE METER (BEAKER) (test code = 1538) 151 mg/dL 70-110 H : TESTED AT [place] [address]: Chemistry Faculty Member/Director Prison ID = [id number] for Rodrigo Pavonoma POCT-GLUCOSE [id number] 06:36:00* Test Item Value Reference Range Interpretation Comments POC-GLUCOSE METER (BEAKER) (test code = 1538) 184 mg/dL 70-110 H : TESTED AT [place] [id number]: Chemistry Faculty Member/Director Prison ID = [id number] for MIESHA GRIFFINA POCT-GLUCOSE [id number] 20:08:00* Test Item Value Reference Range Interpretation Comments POC-GLUCOSE METER (BEAKER) (test code = 1538) 197 mg/dL 70-110 H : TESTED AT [place] [address]: Chemistry Faculty Member/Director Prison ID = [id number] for MIESHA GRIFFINA POCT-GLUCOSE [id number] 16:30:00* Test Item Value Reference Range Interpretation Comments POC-GLUCOSE METER (BEAKER) (test code = 1538) 116 mg/dL 70-110 H : TESTED AT [place] [address]: Chemistry Faculty Member/Director Prison ID = [id number] for Savanah, Sharon POCT-GLUCOSE [id number] 11:52:00* Test Item Value Reference Range Interpretation Comments POC-GLUCOSE METER (BEAKER) (test code = 1538) 212 mg/dL 70-110 H : TESTED AT [place] [address]: Chemistry Faculty Member/Director Prison ID = [id number] for TEA BRENNAN POCT-GLUCOSE [id number] 06:36:00* Test Item Value Reference Range Interpretation Comments POC-GLUCOSE METER (BEAKER) (test code = 1538) 186 mg/dL 70-110 H : TESTED AT [place] [id number]: Chemistry Faculty Member/Director Prison ID = [id number] for MIN GRIFFIN POCT-GLUCOSE [id number] 20:03:00* Test Item Value Reference Range Interpretation Comments POC-GLUCOSE METER (BEAKER) (test code = 1538) 234 mg/dL 70-110 H : TESTED AT [place] [id number]: Chemistry Faculty Member/Director Prison ID = [id number] for MIN GRIFFIN POCT-GLUCOSE [id number] 16:37:00* Test Item Value Reference Range Interpretation Comments POC-GLUCOSE METER (BEAKER) (test code = 1538) 134 mg/dL 70-110 H : TESTED AT [place] [id number]: Chemistry Faculty Member/Director Prison ID = [id number] for Venus Nolan POCT-GLUCOSE [id number] 11:32:00* Test Item Value Reference Range Interpretation Comments POC-GLUCOSE METER (BEAKER) (test code = 1538) 240 mg/dL 70-110 H : TESTED AT [place] [id number]: Chemistry Faculty Member/Director Prison ID = [id number] for Keo Nolanette POCT-GLUCOSE [id number] 06:13:00* Test Item Value Reference Range Interpretation Comments POC-GLUCOSE METER (BEAKER) (test code = 1538) 169 mg/dL 70-110 H : TESTED AT [place] [id number]: Chemistry Faculty Member/Director Prison ID = [id number] for ELFARSAOUI, SOUAD POCT-GLUCOSE [id number] 22:23:00* Test Item Value Reference Range Interpretation Comments POC-GLUCOSE METER (BEAKER) (test code = 1538) 185 mg/dL 70-110 H : TESTED AT [place] [id number]: Chemistry Faculty Member/Director Prison ID = [id number] for ELFARSAOUI, SOUAD POCT-GLUCOSE [id number] 17:06:00* Test Item Value Reference Range Interpretation Comments POC-GLUCOSE METER (BEAKER) (test code = 1538) 179 mg/dL 70-110 H : TESTED AT [place] [id number]: Chemistry Faculty Member/Director Prison ID = [id number] for Omiwade, Syrieta POCT-GLUCOSE [id number] 11:07:00* Test Item Value Reference Range Interpretation Comments POC-GLUCOSE METER (BEAKER) (test code = 1538) 255 mg/dL 70-110 H : TESTED AT [place] [id number]: Chemistry Faculty Member/Director Prison ID = [id number] for Omiwade, Syrieta POCT-GLUCOSE [id number] 06:55:00* Test Item Value Reference Range Interpretation Comments POC-GLUCOSE METER (BEAKER) (test code = 1538) 209 mg/dL 70-110 H : TESTED AT [place] [address]: Chemistry Faculty Member/Director Prison ID = [id number] for Cory Vega POCT-GLUCOSE [id number] 21:05:00* Test Item Value Reference Range Interpretation Comments POC-GLUCOSE METER (BEAKER) (test code = 1538) 207 mg/dL 70-110 H : TESTED AT [place] [address]: Chemistry Faculty Member/Director Prison ID = [id number] for Cory Vega POCT-GLUCOSE [id number] 16:46:00* Test Item Value Reference Range Interpretation Comments POC-GLUCOSE METER (BEAKER) (test code = 1538) 171 mg/dL 70-110 H : TESTED AT [place] [address]: Chemistry Faculty Member/Director Prison ID = [id number] for VERONIQUE BAILEY POCT-GLUCOSE [id number] 12:19:00* Test Item Value Reference Range Interpretation Comments POC-GLUCOSE METER (BEAKER) (test code = 1538) 179 mg/dL 70-110 H : TESTED AT [place] [address]: Chemistry Faculty Member/Director Prison ID = [id number] for VERONIQUE BAILEY POCT-GLUCOSE [id number] 06:44:00* Test Item Value Reference Range Interpretation Comments POC-GLUCOSE METER (BEAKER) (test code = 1538) 168 mg/dL 70-110 H : TESTED AT [place] [address]: Chemistry Faculty Member/Director Prison ID = [id number] for TYLER WOODSON POCT-GLUCOSE [id number] 20:11:00* Test Item Value Reference Range Interpretation Comments POC-GLUCOSE METER (BEAKER) (test code = 1538) 158 mg/dL 70-110 H : TESTED AT [place] [id number]: Chemistry Faculty Member/Director Prison ID = [id number] for LIZETH MCGRAW POCT-GLUCOSE [id number] 17:24:00* Test Item Value Reference Range Interpretation Comments POC-GLUCOSE METER (BEAKER) (test code = 1538) 124 mg/dL 70-110 H : TESTED AT [place] [address]: Chemistry Faculty Member/Director Prison ID = [id number] for Rodrigo Pavonoma POCT-GLUCOSE [id number] 12:09:00* Test Item Value Reference Range Interpretation Comments POC-GLUCOSE METER (BEAKER) (test code = 1538) 200 mg/dL 70-110 H : TESTED AT [place] [address]: Chemistry Faculty Member/Director Prison ID = [id number] for Tobyu, Sharon POCT-GLUCOSE [id number] 06:42:00* Test Item Value Reference Range Interpretation Comments POC-GLUCOSE METER (BEAKER) (test code = 1538) 222 mg/dL 70-110 H : TESTED AT [place] [address]: Chemistry Faculty Member/Director Prison ID = [id number] for MIESHA GRIFFINA POCT-GLUCOSE [id number] 19:39:00* Test Item Value Reference Range Interpretation Comments POC-GLUCOSE METER (BEAKER) (test code = 1538) 230 mg/dL 70-110 H : TESTED AT [place] [address]: Chemistry Faculty Member/Director Prison ID = [id number] for MIESHA GRIFFINA POCT-GLUCOSE [id number] 17:16:00* Test Item Value Reference Range Interpretation Comments POC-GLUCOSE METER (BEAKER) (test code = 1538) 134 mg/dL 70-110 H : TESTED AT [place] [address]: Chemistry Faculty Member/Director Prison ID = [id number] for NolanVenus POCT-GLUCOSE [id number] 12:16:00* Test Item Value Reference Range Interpretation Comments POC-GLUCOSE METER (BEAKER) (test code = 1538) 190 mg/dL 70-110 H : TESTED AT [place] [address]: Chemistry Faculty Member/Director Prison ID = [id number] for NolanVenus xiong BASIC METABOLIC [id number] 07:20:00* Test Item Value Reference Range Interpretation Comments SODIUM (BEAKER) (test code = 381) 138 meq/L 136-145 POTASSIUM (BEAKER) (test code = 379) 4.0 meq/L 3.5-5.1 CHLORIDE (BEAKER) (test code = 382) 104 meq/L 98-107 CO2 (BEAKER) (test code = 355) 28 meq/L 22-29 BLOOD UREA NITROGEN (BEAKER) (test code = 354) 15 mg/dL 7-21 CREATININE (BEAKER) (test code = 358) 0.65 mg/dL 0.57-1.25 GLUCOSE RANDOM (BEAKER) (test code = 652) 170 mg/dL 70-105 H CALCIUM (BEAKER) (test code = 697) 8.3 mg/dL 8.4-10.2 L EGFR (BEAKER) (test code = 1092) 123 mL/min/1.73 sq m ESTIMATED GFR IS NOT ACCURATE CREATININE CLEARANCE IN PREDICTING GLOMERULAR FILTRATION RATE. ESTIMATED GFR IS NOT APPLICABLE FOR DIALYSIS PATIENTS. CBC (HEMOGRAM ONLY)2019-09-15 06:35:00* Test Item Value Reference Range Interpretation Comments WHITE BLOOD CELL COUNT (BEAKER) (test code = 775) 7.5 K/ L 3.5- 10.5 RED BLOOD CELL COUNT (BEAKER) (test code = 761) 5.35 M/ L 4.63-6 .08 HEMOGLOBIN (BEAKER) (test code = 410) 15.2 GM/DL 13.7-17.5 HEMATOCRIT (BEAKER) (test code = 411) 45.8 % 40.1-51.0 MEAN CORPUSCULAR VOLUME (BEAKER) (test code = 753) 85.6 fL 79. 0-92.2 MEAN CORPUSCULAR HEMOGLOBIN (BEAKER) (test code = 751) 28.4 pg 25.7-32.2 MEAN CORPUSCULAR HEMOGLOBIN CONC (BEAKER) (test code = 752) 33.2 GM/DL 32.3-36.5 RED CELL DISTRIBUTION WIDTH (BEAKER) (test code = 412) 13.5 % 11.6-14.4 PLATELET COUNT (BEAKER) (test code = 756) 176 K/CU MM 150-450 MEAN PLATELET VOLUME (BEAKER) (test code = 754) 9.2 fL 9.4-12 .4 L POCT-GLUCOSE [id number] 06:31:00* Test Item Value Reference Range Interpretation Comments POC-GLUCOSE METER (BEAKER) (test code = 1538) 164 mg/dL 70-110 H : TESTED AT [place] [address]: Chemistry Faculty Member/Director Prison ID = [id number] for Jose Vegaw POCT-GLUCOSE [id number] 20:20:00* Test Item Value Reference Range Interpretation Comments POC-GLUCOSE METER (BEAKER) (test code = 1538) 188 mg/dL 70-110 H : TESTED AT [place] [address]: Chemistry Faculty Member/Director Prison ID = [id number] for Jose Vegaw POCT-GLUCOSE [id number] 17:05:00* Test Item Value Reference Range Interpretation Comments POC-GLUCOSE METER (BEAKER) (test code = 1538) 181 mg/dL 70-110 H : TESTED AT [place] [address]: Chemistry Faculty Member/Director Prison ID = [id number] for SMILEY, JUCEL FLAVIO POCT-GLUCOSE [id number] 12:24:00* Test Item Value Reference Range Interpretation Comments POC-GLUCOSE METER (BEAKER) (test code = 1538) 177 mg/dL 70-110 H : TESTED AT [place] [address]: Chemistry Faculty Member/Director Prison ID = [id number] for SMILEY, JUCEL FLAVIO POCT-GLUCOSE [id number] 06:45:00* Test Item Value Reference Range Interpretation Comments POC-GLUCOSE METER (BEAKER) (test code = 1538) 170 mg/dL 70-110 H : TESTED AT [place] [address]: Chemistry Faculty Member/Director Prison ID = [id number] for VegaJosew POCT-GLUCOSE [id number] 22:37:00* Test Item Value Reference Range Interpretation Comments POC-GLUCOSE METER (BEAKER) (test code = 1538) 212 mg/dL 70-110 H : TESTED AT [place] [id number]: Chemistry Faculty Member/Director Prison ID = [id number] for VegaJosew POCT-GLUCOSE [id number] 18:05:00* Test Item Value Reference Range Interpretation Comments POC-GLUCOSE METER (BEAKER) (test code = 1538) 156 mg/dL 70-110 H : TESTED AT [place] [address]: Chemistry Faculty Member/Director Prison ID = [id number] for Omiwade, Syrieta POCT-GLUCOSE [id number] 12:24:00* Test Item Value Reference Range Interpretation Comments POC-GLUCOSE METER (BEAKER) (test code = 1538) 227 mg/dL 70-110 H : TESTED AT [place] [id number]: Chemistry Faculty Member/Director Prison ID = [id number] for Omiwade, Syrieta POCT-GLUCOSE [id number] 06:57:00* Test Item Value Reference Range Interpretation Comments POC-GLUCOSE METER (BEAKER) (test code = 1538) 181 mg/dL 70-110 H : TESTED AT [place] [address]: Chemistry Faculty Member/Director Prison ID = [id number] for ELIVASAOUI, SOUAD POCT-GLUCOSE [id number] 19:47:00* Test Item Value Reference Range Interpretation Comments POC-GLUCOSE METER (BEAKER) (test code = 1538) 210 mg/dL 70-110 H : TESTED AT [place] [address]: Chemistry Faculty Member/Director Prison ID = [id number] for ELIVASAOUI, SOUAD POCT-GLUCOSE [id number] 17:08:00* Test Item Value Reference Range Interpretation Comments POC-GLUCOSE METER (BEAKER) (test code = 1538) 180 mg/dL 70-110 H : TESTED AT [place] [address]: Chemistry Faculty Member/Director Prison ID = [id number] for VERONIQUE BAILEY POCT-GLUCOSE [id number] 14:43:00* Test Item Value Reference Range Interpretation Comments POC-GLUCOSE METER (BEAKER) (test code = 1538) 168 mg/dL 70-110 H : TESTED AT [place] [id number]: Chemistry Faculty Member/Director Prison ID = [id number] for FAUSTO URIAS POCT-GLUCOSE [id number] 11:11:00* Test Item Value Reference Range Interpretation Comments POC-GLUCOSE METER (BEAKER) (test code = 1538) 175 mg/dL 70-110 H : TESTED AT [place] [address]: Chemistry Faculty Member/Director Prison ID = [id number] for VERONIQUE BAILEY POCT-GLUCOSE [id number] 06:41:00* Test Item Value Reference Range Interpretation Comments POC-GLUCOSE METER (BEAKER) (test code = 1538) 179 mg/dL 70-110 H : TESTED AT [place] [address]: Chemistry Faculty Member/Director Prison ID = [id number] for MARILUZ, LIZETH POCT-GLUCOSE [id number] 20:45:00* Test Item Value Reference Range Interpretation Comments POC-GLUCOSE METER (BEAKER) (test code = 1538) 142 mg/dL 70-110 H : TESTED AT [place] [address]: Chemistry Faculty Member/Director Prison ID = [id number] for MARILUZ, LIZETH POCT-GLUCOSE [id number] 16:57:00* Test Item Value Reference Range Interpretation Comments POC-GLUCOSE METER (BEAKER) (test code = 1538) 136 mg/dL 70-110 H : TESTED AT [place] [address]: Chemistry Faculty Member/Director Prison ID = [id number] for Nwajiuku, Sharon POCT-GLUCOSE [id number] 12:00:00* Test Item Value Reference Range Interpretation Comments POC-GLUCOSE METER (BEAKER) (test code = 1538) 244 mg/dL 70-110 H : TESTED AT [place] [address]: Chemistry Faculty Member/Director Prison ID = [id number] for Nwajiuku, Sharon POCT-GLUCOSE [id number] 06:31:00* Test Item Value Reference Range Interpretation Comments POC-GLUCOSE METER (BEAKER) (test code = 1538) 198 mg/dL 70-110 H : TESTED AT [place] [address]: Chemistry Faculty Member/Director Prison ID = [id number] for MARILUZ, LIZETH POCT-GLUCOSE [id number] 21:45:00* Test Item Value Reference Range Interpretation Comments POC-GLUCOSE METER (BEAKER) (test code = 1538) 141 mg/dL 70-110 H : TESTED AT [place] [address]: Chemistry Faculty Member/Director Prison ID = [id number] for LIZETH MCGRAW POCT-GLUCOSE [id number] 17:57:00* Test Item Value Reference Range Interpretation Comments POC-GLUCOSE METER (BEAKER) (test code = 1538) 164 mg/dL 70-110 H : TESTED AT [place] [address]: Chemistry Faculty Member/Director Prison ID = [id number] for HERBERTPRAVIN POCT-GLUCOSE [id number] 16:24:00* Test Item Value Reference Range Interpretation Comments POC-GLUCOSE METER (BEAKER) (test code = 1538) 172 mg/dL 70-110 H : TESTED AT [place] [address]: Chemistry Faculty Member/Director Prison ID = [id number] for Venus Nolan POCT-GLUCOSE [id number] 11:19:00* Test Item Value Reference Range Interpretation Comments POC-GLUCOSE METER (BEAKER) (test code = 1538) 132 mg/dL 70-110 H : TESTED AT [place] [address]: Chemistry Faculty Member/Director Prison ID = [id number] for Venus Nolan POCT-GLUCOSE [id number] 06:53:00* Test Item Value Reference Range Interpretation Comments POC-GLUCOSE METER (BEAKER) (test code = 1538) 212 mg/dL 70-110 H : TESTED AT [place] [address]: Chemistry Faculty Member/Director Prison ID = [id number] for MARIBEL VIDALES POCT-GLUCOSE [id number] 22:01:00* Test Item Value Reference Range Interpretation Comments POC-GLUCOSE METER (BEAKER) (test code = 1538) 172 mg/dL 70-110 H : TESTED AT [place] [address]: Chemistry Faculty Member/Director Prison ID = [id number] for Cory Vega POCT-GLUCOSE [id number] 17:29:00* Test Item Value Reference Range Interpretation Comments POC-GLUCOSE METER (BEAKER) (test code = 1538) 131 mg/dL 70-110 H : TESTED AT [place] [address]: Chemistry Faculty Member/Director Prison ID = [id number] for VERONIQUE BAILEY POCT-GLUCOSE [id number] 12:10:00* Test Item Value Reference Range Interpretation Comments POC-GLUCOSE METER (BEAKER) (test code = 1538) 183 mg/dL 70-110 H : TESTED AT [facility] [address] [facility] [address]: Chemistry Faculty Member/Director Prison ID = [id number] for VERONIQUE BAILEY POCT-GLUCOSE [id number] 06:41:00* Test Item Value Reference Range Interpretation Comments POC-GLUCOSE METER (BEAKER) (test code = 1538) 166 mg/dL 70-110 H : TESTED AT [place] [id number] [facility] [address]: Chemistry Faculty Member/Director Prison ID = [id number] for VINAYAK BERRY COMPREHENSIVE METABOLIC [id number] 05:10:00* Test Item Value Reference Range Interpretation Comments TOTAL PROTEIN (BEAKER) (test code = 770) 6.4 gm/dL 6.0-8.3 ALBUMIN (BEAKER) (test code = 1145) 4.1 g/dL 3.5-5.0 ALKALINE PHOSPHATASE (BEAKER) (test code = 346) 96 U/L 40-150 BILIRUBIN TOTAL (BEAKER) (test code = 377) 1.0 mg/dL 0.2-1.2 SODIUM (BEAKER) (test code = 381) 135 meq/L 136-145 L POTASSIUM (BEAKER) (test code = 379) 3.9 meq/L 3.5-5.1 CHLORIDE (BEAKER) (test code = 382) 103 meq/L 98-107 CO2 (BEAKER) (test code = 355) 24 meq/L 22-29 BLOOD UREA NITROGEN (BEAKER) (test code = 354) 13 mg/dL 7-21 CREATININE (BEAKER) (test code = 358) 0.61 mg/dL 0.57-1.25 GLUCOSE RANDOM (BEAKER) (test code = 652) 175 mg/dL 70-105 H CALCIUM (BEAKER) (test code = 697) 8.3 mg/dL 8.4-10.2 L AST (SGOT) (BEAKER) (test code = 353) 22 U/L 5-34 ALT (SGPT) (BEAKER) (test code = 347) 29 U/L 6-55 EGFR (BEAKER) (test code = 1092) 133 mL/min/1.73 sq m ESTIMATED GFR IS NOT ACCURATE CREATININE CLEARANCE IN PREDICTING GLOMERULAR FILTRATION RATE. ESTIMATED GFR IS NOT APPLICABLE FOR DIALYSIS PATIENTS. CBC W/PLT COUNT & AUTO [id number] 04:52:00* Test Item Value Reference Range Interpretation Comments WHITE BLOOD CELL COUNT (BEAKER) (test code = 775) 7.2 K/ L 3.5- 10.5 RED BLOOD CELL COUNT (BEAKER) (test code = 761) 5.71 M/ L 4.63-6 .08 HEMOGLOBIN (BEAKER) (test code = 410) 15.9 GM/DL 13.7-17.5 HEMATOCRIT (BEAKER) (test code = 411) 48.0 % 40.1-51.0 MEAN CORPUSCULAR VOLUME (BEAKER) (test code = 753) 84.1 fL 79. 0-92.2 MEAN CORPUSCULAR HEMOGLOBIN (BEAKER) (test code = 751) 27.8 pg 25.7-32.2 MEAN CORPUSCULAR HEMOGLOBIN CONC (BEAKER) (test code = 752) 33.1 GM/DL 32.3-36.5 RED CELL DISTRIBUTION WIDTH (BEAKER) (test code = 412) 13.6 % 11.6-14.4 PLATELET COUNT (BEAKER) (test code = 756) 183 K/CU MM 150-450 MEAN PLATELET VOLUME (BEAKER) (test code = 754) 9.7 fL 9.4-12 .4 NEUTROPHILS RELATIVE PERCENT (BEAKER) (test code = 429) 60 % LYMPHOCYTES RELATIVE PERCENT (BEAKER) (test code = 430) 28 % MONOCYTES RELATIVE PERCENT (BEAKER) (test code = 431) 10 % EOSINOPHILS RELATIVE PERCENT (BEAKER) (test code = 432) 1 % BASOPHILS RELATIVE PERCENT (BEAKER) (test code = 437) 0 % NEUTROPHILS ABSOLUTE COUNT (BEAKER) (test code = 670) 4.30 K/ L 1.78-5.38 LYMPHOCYTES ABSOLUTE COUNT (BEAKER) (test code = 414) 2.03 K/ L 1.32-3.57 MONOCYTES ABSOLUTE COUNT (BEAKER) (test code = 415) 0.72 K/ L 0. 30-0.82 EOSINOPHILS ABSOLUTE COUNT (BEAKER) (test code = 416) 0.06 K/ L 0.04-0.54 BASOPHILS ABSOLUTE COUNT (BEAKER) (test code = 417) 0.03 K/ L 0. 01-0.08 IMMATURE GRANULOCYTES-RELATIVE PERCENT (BEAKER) (test code = 2801) 0 % 0-1 POCT-GLUCOSE [id number] 23:14:00* Test Item Value Reference Range Interpretation Comments POC-GLUCOSE METER (BEAKER) (test code = 1538) 158 mg/dL 70-110 H : TESTED AT [facility] [address] [place] [address]: Chemistry Faculty Member/Director Prison ID = [id number] for VINAYAK BERRY POCT-GLUCOSE [id number] 17:09:00* Test Item Value Reference Range Interpretation Comments POC-GLUCOSE METER (BEAKER) (test code = 1538) 118 mg/dL 70-110 H : TESTED AT [address] [address]: Chemistry Faculty Member/Director Prison ID = [id number] for DARYL SIMLEY CT, CAROTID, [id number] 12:59:00Reason for exam:->Symptoms onset less than 6 hours and NIHSS [address], CTANGIO BRAIN INDICATION: Neuro deficit, acute, stroke suspectedSymptoms onset less than 6 hours and NIHSS 6 or greater COMPARISON: CT head of the same date TECHNIQUE:Rapid acquisition spiral images were obtained between the [...] dose to as low as reasonably achievable. FINDINGS:CT BRAIN:Cerebral parenchyma: Redemonstrated remote infarcts in the left occipital lobe, left basal ganglia and left neil r adiata.Midline structures: Normally positioned.Cerebellum and brainstem: Normal. Ventricles: Extra-axial enlargementExtra-axial spaces: Unremarkable.Calvarium an d skull base: Intact.Paranasal sinuses and mastoid air cells: Mild mucosal thick ening in the left maxillary sinusOrbital contents: Included portions unremarkabl e.Other: Poor dentition with multiple erosions and periapical lucencies, most pr ominent at the left maxillary teeth. CTA BRAIN:Internal carotid arteries: Petrou s, cavernous and supraclinoid portions patent. Mild atherosclerotic calcificatio n of the bilateral distal ICAs, similar to previous.Middle cerebral arteries: Pa tent to distal branches.Anterior cerebral arteries: Patent. Intact A-comm.Basila r system: The right vertebral artery terminates in the right PICA. There is a pa tent distal left vertebral artery and basilar artery. There is minimal atheroscl erotic calcification of the distal vertebral artery.Posterior cerebral arteries: Patent beyond the quadrigeminal segments.Venous opacification: Major dural sinus es unremarkable for bolus timing.Additional findings: None. CTA NECK:Common villalobos tid arteries: The common carotid arteries are normal in size. Bifurcations: Sta ble irregularity of the left carotid bulb, possibly postoperative. Cervical inte rnal carotid arteries: No flow limiting stenosis. Retropharyngeal course of the right internal carotid artery.Vertebral arteries: Dominant left vertebral artery Arch anatomy: The left vertebral artery arises independently from the arch betwe en the left common carotid artery and left subclavian artery origins. There is a therosclerotic mural irregularity of the aortic arch. Nonvascular findings:Britton us structures: No acute osseous abnormality. Intact calvarium and skull base. Mi ld degenerative changes at C5-C6.Cervical soft tissues: No adenopathy. Patent ae rodigestive tract. 1.3 cm right thyroid nodule.Lung apices: No apical consolidat ion or pneumothorax. 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 No CT evidence of acute infarct. No intracranial hemorrhage. No intracranial vascular occlusion. No flow limiting stenosis or dissection. Po or dentition. 1.3 cm right thyroid nodule. Please see below for published recomm endations related to follow-up of an incidentally detected [...] to patients with symptomatic thyroid disease. Signed: Debora Jacobo MDReport Verified Date/Time: 09/08/2019 12:59:45 -GLUCOSE [id number] 12:58:00* Test Item Value Reference Range Interpretation Comments POC-GLUCOSE METER (BEAKER) (test code = 1538) 185 mg/dL 70-110 H : TESTED AT [facility] [address] [facility], [address]: Chemistry Faculty Member/Director Prison ID = [id number] for SHAYY BERNSTEIN POCT-GLUCOSE [id number] 10:56:00* Test Item Value Reference Range Interpretation Comments POC-GLUCOSE METER (BEAKER) (test code = 1538) 171 mg/dL 70-110 H : TESTED AT [facility] [address] [facility], [address]: Chemistry Faculty Member/Director Prison ID = [id number] for SHAYY BERNSTEIN BASIC METABOLIC [id number] 05:48:00* Test Item Value Reference Range Interpretation Comments SODIUM (BEAKER) (test code = 381) 136 meq/L 136-145 POTASSIUM (BEAKER) (test code = 379) 4.0 meq/L 3.5-5.1 CHLORIDE (BEAKER) (test code = 382) 106 meq/L 98-107 CO2 (BEAKER) (test code = 355) 25 meq/L 22-29 BLOOD UREA NITROGEN (BEAKER) (test code = 354) 19 mg/dL 7-21 CREATININE (BEAKER) (test code = 358) 0.70 mg/dL 0.57-1.25 GLUCOSE RANDOM (BEAKER) (test code = 652) 154 mg/dL 70-105 H CALCIUM (BEAKER) (test code = 697) 8.5 mg/dL 8.4-10.2 EGFR (BEAKER) (test code = 1092) 113 mL/min/1.73 sq m ESTIMATED GFR IS NOT ACCURATE CREATININE CLEARANCE IN PREDICTING GLOMERULAR FILTRATION RATE. ESTIMATED GFR IS NOT APPLICABLE FOR DIALYSIS PATIENTS. CBC W/PLT COUNT & AUTO [id number] 04:49:00* Test Item Value Reference Range Interpretation Comments WHITE BLOOD CELL COUNT (BEAKER) (test code = 775) 5.7 K/ L 3.5- 10.5 RED BLOOD CELL COUNT (BEAKER) (test code = 761) 5.68 M/ L 4.63-6 .08 HEMOGLOBIN (BEAKER) (test code = 410) 15.7 GM/DL 13.7-17.5 HEMATOCRIT (BEAKER) (test code = 411) 48.1 % 40.1-51.0 MEAN CORPUSCULAR VOLUME (BEAKER) (test code = 753) 84.7 fL 79. 0-92.2 MEAN CORPUSCULAR HEMOGLOBIN (BEAKER) (test code = 751) 27.6 pg 25.7-32.2 MEAN CORPUSCULAR HEMOGLOBIN CONC (BEAKER) (test code = 752) 32.6 GM/DL 32.3-36.5 RED CELL DISTRIBUTION WIDTH (BEAKER) (test code = 412) 13.8 % 11.6-14.4 PLATELET COUNT (BEAKER) (test code = 756) 173 K/CU MM 150-450 MEAN PLATELET VOLUME (BEAKER) (test code = 754) 9.3 fL 9.4-12 .4 L NUCLEATED RED BLOOD CELLS (BEAKER) (test code = 413) 0 /100 WBC 0 -0 NEUTROPHILS RELATIVE PERCENT (BEAKER) (test code = 429) 57 % LYMPHOCYTES RELATIVE PERCENT (BEAKER) (test code = 430) 30 % MONOCYTES RELATIVE PERCENT (BEAKER) (test code = 431) 12 % EOSINOPHILS RELATIVE PERCENT (BEAKER) (test code = 432) 1 % BASOPHILS RELATIVE PERCENT (BEAKER) (test code = 437) 1 % NEUTROPHILS ABSOLUTE COUNT (BEAKER) (test code = 670) 3.22 K/ L 1.78-5.38 LYMPHOCYTES ABSOLUTE COUNT (BEAKER) (test code = 414) 1.70 K/ L 1.32-3.57 MONOCYTES ABSOLUTE COUNT (BEAKER) (test code = 415) 0.67 K/ L 0. 30-0.82 EOSINOPHILS ABSOLUTE COUNT (BEAKER) (test code = 416) 0.07 K/ L 0.04-0.54 BASOPHILS ABSOLUTE COUNT (BEAKER) (test code = 417) 0.03 K/ L 0. 01-0.08 IMMATURE GRANULOCYTES-RELATIVE PERCENT (BEAKER) (test code = 2801) 0 % 0-1 POCT-GLUCOSE [id number] 20:55:00* Test Item Value Reference Range Interpretation Comments POC-GLUCOSE METER (BEAKER) (test code = 1538) 180 mg/dL 70-110 H : TESTED AT [address], [address]: Chemistry Faculty Member/Director Prison ID = [id number] for WILFREDOANA POCT-GLUCOSE [id number] 18:51:00* Test Item Value Reference Range Interpretation Comments POC-GLUCOSE METER (BEAKER) (test code = 1538) 141 mg/dL 70-110 H : TESTED AT [address], [address]: Chemistry Faculty Member/Director Prison ID = [id number] for RIKA SANA POCT-GLUCOSE [id number] 18:47:00* Test Item Value Reference Range Interpretation Comments POC-GLUCOSE METER (BEAKER) (test code = 1538) 230 mg/dL 70-110 H : TESTED AT [address], [address]: Chemistry Faculty Member/Director Prison ID = [id number] for MELÉNDEZ, SANA POCT-GLUCOSE [id number] 18:45:00* Test Item Value Reference Range Interpretation Comments POC-GLUCOSE METER (BEAKER) (test code = 1538) 186 mg/dL 70-110 H : TESTED AT [address], [address]: Chemistry Faculty Member/Director Prison ID = [id number] for MELÉNDEZ, SANA BASIC METABOLIC [id number] 06:36:00* Test Item Value Reference Range Interpretation Comments SODIUM (BEAKER) (test code = 381) 134 meq/L 136-145 L POTASSIUM (BEAKER) (test code = 379) 4.1 meq/L 3.5-5.1 CHLORIDE (BEAKER) (test code = 382) 105 meq/L 98-107 CO2 (BEAKER) (test code = 355) 24 meq/L 22-29 BLOOD UREA NITROGEN (BEAKER) (test code = 354) 18 mg/dL 7-21 CREATININE (BEAKER) (test code = 358) 0.69 mg/dL 0.57-1.25 GLUCOSE RANDOM (BEAKER) (test code = 652) 193 mg/dL 70-105 H CALCIUM (BEAKER) (test code = 697) 8.6 mg/dL 8.4-10.2 EGFR (BEAKER) (test code = 1092) 115 mL/min/1.73 sq m ESTIMATED GFR IS NOT ACCURATE CREATININE CLEARANCE IN PREDICTING GLOMERULAR FILTRATION RATE. ESTIMATED GFR IS NOT APPLICABLE FOR DIALYSIS PATIENTS. CBC W/PLT COUNT & AUTO [id number] 05:32:00* Test Item Value Reference Range Interpretation Comments WHITE BLOOD CELL COUNT (BEAKER) (test code = 775) 6.7 K/ L 3.5- 10.5 RED BLOOD CELL COUNT (BEAKER) (test code = 761) 5.54 M/ L 4.63-6 .08 HEMOGLOBIN (BEAKER) (test code = 410) 15.9 GM/DL 13.7-17.5 HEMATOCRIT (BEAKER) (test code = 411) 47.7 % 40.1-51.0 MEAN CORPUSCULAR VOLUME (BEAKER) (test code = 753) 86.1 fL 79. 0-92.2 MEAN CORPUSCULAR HEMOGLOBIN (BEAKER) (test code = 751) 28.7 pg 25.7-32.2 MEAN CORPUSCULAR HEMOGLOBIN CONC (BEAKER) (test code = 752) 33.3 GM/DL 32.3-36.5 RED CELL DISTRIBUTION WIDTH (BEAKER) (test code = 412) 13.7 % 11.6-14.4 PLATELET COUNT (BEAKER) (test code = 756) 152 K/CU MM 150-450 MEAN PLATELET VOLUME (BEAKER) (test code = 754) 9.8 fL 9.4-12 .4 NUCLEATED RED BLOOD CELLS (BEAKER) (test code = 413) 0 /100 WBC 0 -0 NEUTROPHILS RELATIVE PERCENT (BEAKER) (test code = 429) 66 % LYMPHOCYTES RELATIVE PERCENT (BEAKER) (test code = 430) 22 % MONOCYTES RELATIVE PERCENT (BEAKER) (test code = 431) 11 % EOSINOPHILS RELATIVE PERCENT (BEAKER) (test code = 432) 1 % BASOPHILS RELATIVE PERCENT (BEAKER) (test code = 437) 0 % NEUTROPHILS ABSOLUTE COUNT (BEAKER) (test code = 670) 4.43 K/ L 1.78-5.38 LYMPHOCYTES ABSOLUTE COUNT (BEAKER) (test code = 414) 1.49 K/ L 1.32-3.57 MONOCYTES ABSOLUTE COUNT (BEAKER) (test code = 415) 0.71 K/ L 0. 30-0.82 EOSINOPHILS ABSOLUTE COUNT (BEAKER) (test code = 416) 0.05 K/ L 0.04-0.54 BASOPHILS ABSOLUTE COUNT (BEAKER) (test code = 417) 0.03 K/ L 0. 01-0.08 IMMATURE GRANULOCYTES-RELATIVE PERCENT (BEAKER) (test code = 2801) 0 % 0-1 CT, BRAIN, WITHOUT [id number] 23:11:00FINAL REPORT EXAM: CT, BRAIN, WITHOUT CONTRAST CLINICAL INDICATION: Stroke follow- up. TECHNIQUE: Helical CT images from skull base to vertex without IV contrast. This exam was performed according to our departmental dose- optimization program, which includes automated exposure control, adjustment of the mA and/or kV according to patient size and/or use of iterative recon struction technique. COMPARISON: 09/03/2019 MRI, 09/03/2019 CT. FINDINGS: Parenc hyma: Evolving focal infarctions in the right thalamus, right aspect of the sple nium, and right occipital lobe correlating to MRI and are now more conspicuous o n CT, as expected. No evidence of new acute infarction. Remote infarctions of th e left occipital lobe and left neil radiata. No hemorrhage. No mass or mass ef fect. Extra-axial Collection: None Ventricular System: Ex vacuo enlarged w ithout hydrocephalus Dural Venous Sinuses: Normal Osseous Structures: Normal I ncluded Orbits: Normal Paranasal Sinuses: Predominantly clear Tympanomastoid Ca vities: Normal Other: Atherosclerotic intracranial calcifications are present. IMPRESSION: 1. Evolving small focal infarctions of the right FIRST OFFICER territory which correlate to recent MRI. No hemorrhage or evidence of new infarction.2. Remote infarctions of the left occipital lobe and left neil radiata. Signed: Sandip Elder MDReport Verified Date/Time: 09/06/2019 23:11:56 Electronically si gned by: SANDIP ELDER MD on 09/06/2019 11:11 PM POCT-GLUCOSE [id number] 19:20:00* Test Item Value Reference Range Interpretation Comments POC-GLUCOSE METER (BEAKER) (test code = 1538) 185 mg/dL 70-110 H : TESTED AT [address], [address]: Chemistry Faculty Member/Director Prison ID = [id number] for WILFREDO, TIA POCT-GLUCOSE [id number] 12:28:00* Test Item Value Reference Range Interpretation Comments POC-GLUCOSE METER (BEAKER) (test code = 1538) 202 mg/dL 70-110 H : TESTED AT [address], [address]: Chemistry Faculty Member/Director Prison ID = [id number] for Quartman, My POCT-GLUCOSE [id number] 07:54:00* Test Item Value Reference Range Interpretation Comments POC-GLUCOSE METER (BEAKER) (test code = 1538) 182 mg/dL 70-110 H : TESTED AT [address], [address]: Chemistry Faculty Member/Director Prison ID = [id number] for Quartman, My POCT-GLUCOSE [id number] 21:28:00* Test Item Value Reference Range Interpretation Comments POC-GLUCOSE METER (BEAKER) (test code = 1538) 162 mg/dL 70-110 H : TESTED AT [address], [address]: Chemistry Faculty Member/Director Prison ID = [id number] for WILFREDO, TIA POCT-GLUCOSE [id number] 17:55:00* Test Item Value Reference Range Interpretation Comments POC-GLUCOSE METER (BEAKER) (test code = 1538) 149 mg/dL 70-110 H : TESTED AT [address], [address]: Chemistry Faculty Member/Director Prison ID = [id number] for RENEE ROUSE POCT-GLUCOSE [id number] 12:05:00* Test Item Value Reference Range Interpretation Comments POC-GLUCOSE METER (BEAKER) (test code = 1538) 241 mg/dL 70-110 H : TESTED AT [address], [address]: Chemistry Faculty Member/Director Prison ID = [id number] for RENEE ROUSE POCT-GLUCOSE [id number] 08:07:00* Test Item Value Reference Range Interpretation Comments POC-GLUCOSE METER (BEAKER) (test code = 1538) 168 mg/dL 70-110 H : TESTED AT [address], [address]: Chemistry Faculty Member/Director Prison ID = [id number] for RENEE ROUSE POCT-GLUCOSE [id number] 20:55:00* Test Item Value Reference Range Interpretation Comments POC-GLUCOSE METER (BEAKER) (test code = 1538) 158 mg/dL 70-110 H : Notified RN/MD: TESTED AT [address], [address]: Chemistry Faculty Member/Director Prison ID = [id number] for LEIA FONG POCT-GLUCOSE [id number] 18:27:00* Test Item Value Reference Range Interpretation Comments POC-GLUCOSE METER (BEAKER) (test code = 1538) 193 mg/dL 70-110 H : TESTED AT [address], [address]: Chemistry Faculty Member/Director Prison ID = [id number] for [place], My POCT-GLUCOSE [id number] 13:58:00* Test Item Value Reference Range Interpretation Comments POC-GLUCOSE METER (BEAKER) (test code = 1538) 181 mg/dL 70-110 H : TESTED AT [address], [address]: Chemistry Faculty Member/Director Prison ID = [id number] for JOHNBeverlyADELINE BARRETTSHANNAN HEMOGLOBIN [id number] 08:32:00* Test Item Value Reference Range Interpretation Comments HEMOGLOBIN A1C (BEAKER) (test code = 368) 7.8 % 4.3-6.1 H POCT-GLUCOSE [id number] 07:52:00* Test Item Value Reference Range Interpretation Comments POC-GLUCOSE METER (BEAKER) (test code = 1538) 262 mg/dL 70-110 H : TESTED AT [address], [address]: Chemistry Faculty Member/Director Prison ID = [id number] for [place], My VITAMIN B12 AND [id number] 05:59:00* Test Item Value Reference Range Interpretation Comments VITAMIN B12 (BEAKER) (test code = 774) 350 pg/mL 213-816 FOLATE (BEAKER) (test code = 362) 10.4 ng/mL >=7.0 LIPID [id number] 05:33:00* Test Item Value Reference Range Interpretation Comments TRIGLYCERIDES (BEAKER) (test code = 540) 206 mg/dL CHOLESTEROL (BEAKER) (test code = 631) 172 mg/dL HDL CHOLESTEROL (BEAKER) (test code = 976) 37 mg/dL LDL CHOLESTEROL CALCULATED (BEAKER) (test code = 633) 94 mg/dL Triglyceride Reference Range: Low Risk <150 Borderline 150-199 High Risk 200-499 Very High Risk >=500Cholesterol Reference Range: Low Risk <200 Borderline 200-239 High Risk >240HDL Cholesterol Reference Range: Low Risk >=60 High Risk <40LDL Cholesterol Reference Range: Optimal <100 Near Optimal 100-129 Borderline 130-159 High 160-189 Very High >=190 Fasting BASIC METABOLIC [id number] 05:33:00* Test Item Value Reference Range Interpretation Comments SODIUM (BEAKER) (test code = 381) 134 meq/L 136-145 L POTASSIUM (BEAKER) (test code = 379) 3.9 meq/L 3.5-5.1 CHLORIDE (BEAKER) (test code = 382) 103 meq/L 98-107 CO2 (BEAKER) (test code = 355) 24 meq/L 22-29 BLOOD UREA NITROGEN (BEAKER) (test code = 354) 18 mg/dL 7-21 CREATININE (BEAKER) (test code = 358) 0.79 mg/dL 0.57-1.25 GLUCOSE RANDOM (BEAKER) (test code = 652) 248 mg/dL 70-105 H CALCIUM (BEAKER) (test code = 697) 8.9 mg/dL 8.4-10.2 EGFR (BEAKER) (test code = 1092) 98 mL/min/1.73 sq m ESTIMATED GFR IS NOT ACCURATE CREATININE CLEARANCE IN PREDICTING GLOMERULAR FILTRATION RATE. ESTIMATED GFR IS NOT APPLICABLE FOR DIALYSIS PATIENTS. FastingCBC W/PLT COUNT & AUTO [id number] 05:02:00* Test Item Value Reference Range Interpretation Comments WHITE BLOOD CELL COUNT (BEAKER) (test code = 775) 9.0 K/ L 3.5- 10.5 RED BLOOD CELL COUNT (BEAKER) (test code = 761) 5.70 M/ L 4.63-6 .08 HEMOGLOBIN (BEAKER) (test code = 410) 15.9 GM/DL 13.7-17.5 HEMATOCRIT (BEAKER) (test code = 411) 49.0 % 40.1-51.0 MEAN CORPUSCULAR VOLUME (BEAKER) (test code = 753) 86.0 fL 79. 0-92.2 MEAN CORPUSCULAR HEMOGLOBIN (BEAKER) (test code = 751) 27.9 pg 25.7-32.2 MEAN CORPUSCULAR HEMOGLOBIN CONC (BEAKER) (test code = 752) 32.4 GM/DL 32.3-36.5 RED CELL DISTRIBUTION WIDTH (BEAKER) (test code = 412) 14.2 % 11.6-14.4 PLATELET COUNT (BEAKER) (test code = 756) 150 K/CU MM 150-450 MEAN PLATELET VOLUME (BEAKER) (test code = 754) 9.8 fL 9.4-12 .4 NUCLEATED RED BLOOD CELLS (BEAKER) (test code = 413) 0 /100 WBC 0 -0 NEUTROPHILS RELATIVE PERCENT (BEAKER) (test code = 429) 74 % LYMPHOCYTES RELATIVE PERCENT (BEAKER) (test code = 430) 17 % MONOCYTES RELATIVE PERCENT (BEAKER) (test code = 431) 8 % EOSINOPHILS RELATIVE PERCENT (BEAKER) (test code = 432) 1 % BASOPHILS RELATIVE PERCENT (BEAKER) (test code = 437) 0 % NEUTROPHILS ABSOLUTE COUNT (BEAKER) (test code = 670) 6.70 K/ L 1.78-5.38 H LYMPHOCYTES ABSOLUTE COUNT (BEAKER) (test code = 414) 1.55 K/ L 1.32-3.57 MONOCYTES ABSOLUTE COUNT (BEAKER) (test code = 415) 0.69 K/ L 0. 30-0.82 EOSINOPHILS ABSOLUTE COUNT (BEAKER) (test code = 416) 0.05 K/ L 0.04-0.54 BASOPHILS ABSOLUTE COUNT (BEAKER) (test code = 417) 0.02 K/ L 0. 01-0.08 IMMATURE GRANULOCYTES-RELATIVE PERCENT (BEAKER) (test code = 2801) 0 % 0-1 POCT-GLUCOSE [id number] 22:10:00* Test Item Value Reference Range Interpretation Comments POC-GLUCOSE METER (BEAKER) (test code = 1538) 185 mg/dL 70-110 H : TESTED AT [facility] [address] [facility], [address]: Chemistry Faculty Member/Director Prison ID = [id number] for LEIA FONG POCT-GLUCOSE [id number] 17:59:00* Test Item Value Reference Range Interpretation Comments POC-GLUCOSE METER (BEAKER) (test code = 1538) 151 mg/dL 70-110 H : TESTED AT [place] [id number] [facility], [address]: Chemistry Faculty Member/Director Prison ID = [id number] for [place] Mar POCT-GLUCOSE [id number] 15:17:00* Test Item Value Reference Range Interpretation Comments POC-GLUCOSE METER (BEAKER) (test code = 1538) 147 mg/dL 70-110 H : TESTED AT [place] [id number] [facility], [address]: Chemistry Faculty Member/Director Prison ID = [id number] for COOKIE STRANGE MR, BRAIN, WITHOUT [id number] 14:52:00FINAL REPORT MR, BRAIN, WITHOUT CONTRAST INDICATION: Stroke, follow up TECHNIQUE: Multiplanar, multisequence MR imaging of the brain was obtained. COMPARISON: None FINDINGS:Foci of restricted diffusion within the paramedian occipital lobe, thalamus and occipital pole on the right with concomitant decreased signal on ADC and FLAIR hyperintensity compatible with multiple right FIRST OFFICER distribution acute infarcts. Remote infarct of the left caudate and centrum semiovale. Remote infarct of the left occipital pole in the left FIRST OFFICER distribution. Brain parenchyma is otherwise normal in morphology. Midline structures are normally developed. No abnormal susceptibility. Scattered T2/FLAIR hyperintense foci within the periventricular and subcortical white matter are nonspecific, however, statistically represent chronic microvascular ischemic changes. No hydr ocephalus. Orbits are within normal limits. No obstructive paranasal sinus disea se. IMPRESSION: Acute subcentimeter infarcts within the right FIRST OFFICER distribution Signed: Tierra Hatch Verified Date/Time: 09/03/2019 14:52:53 Clementine rajan Location: [facility] Radiology Reading Room , CHEST, 1 VIEW, NON DEPT 2019-09-03 13:14:00Reason for exam:->MRI screenShould this be performed at the bedside?->YesFINAL REPORT INDICATION: MRI screen COMPARISON: April 04, 2018 TECHNIQUE: Single frontal view of the chest. FINDINGS: Lungs and pleura: Clear lungs. No effusion.Heart and mediastinum: Normal heart size. Unremarkable mediastinal contours.Osseous structures: No acute abnormality.Other: None. IMPRESSION: No acute intrathoracic abnormality. Signed: Tierra Hatch MDReport Verified Date/Time: 09/03/2019 13:14:17 Reading Location: [facility] Radiology Reading Room [id number] 09:00:00* Test Item Value Reference Range Interpretation Comments HOMOCYSTEINE (BEAKER) (test code = 642) 8.1 umol/L 5.1-15.4 TSH/FREE T4 IF [id number] 09:00:00* Test Item Value Reference Range Interpretation Comments THYROID STIMULATING HORMONE (BEAKER) (test code = 772) 1.12 uIU/mL 0.35-4.94 URINALYSIS WITH MICROSCOPIC IF [id number] 08:22:00* Test Item Value Reference Range Interpretation Comments COLOR (BEAKER) (test code = 470) Yellow CLARITY (BEAKER) (test code = 469) Clear SPECIFIC GRAVITY UA (BEAKER) (test code = 468) 1.008 1.001-1 .035 PH UA (BEAKER) (test code = 467) 5.5 5.0-8.0 PROTEIN UA (BEAKER) (test code = 464) Negative Negative GLUCOSE UA (BEAKER) (test code = 365) Negative Negative KETONES UA (BEAKER) (test code = 371) Negative Negative BILIRUBIN UA (BEAKER) (test code = 462) Negative Negative BLOOD UA (BEAKER) (test code = 461) Negative Negative NITRITE UA (BEAKER) (test code = 465) Negative Negative LEUKOCYTE ESTERASE UA (BEAKER) (test code = 466) Negative Negat nelly UROBILINOGEN UA (BEAKER) (test code = 463) 0.2 mg/dL 0.2-1.0 SOURCE(BEAKER) (test code = 2795) TROPONIN [id number] 06:53:00* Test Item Value Reference Range Interpretation Comments TROPONIN I (BEAKER) (test code = 397) < ng/mL 0.00-0.03 Troponin I (TnI) levels must be interpreted in the context of the presenting sym ptoms and the clinical findings. Elevated TnI levels indicate myocardial damage, but are not specific for ischemic heart disease. Elevated TnI levels are seen in patients with other cardiac conditions (including myocarditis and congestive h eart failure), and slight TnI elevations occur in patients with other conditions , including sepsis, renal failure, acidosis, acute neurological disease, and per sistent tachyarrhythmia.BASIC METABOLIC [id number] 06:49:00* Test Item Value Reference Range Interpretation Comments SODIUM (BEAKER) (test code = 381) 133 meq/L 136-145 L POTASSIUM (BEAKER) (test code = 379) 4.2 meq/L 3.5-5.1 Specimen slightly hemolyzed CHLORIDE (BEAKER) (test code = 382) 104 meq/L 98-107 CO2 (BEAKER) (test code = 355) 23 meq/L 22-29 BLOOD UREA NITROGEN (BEAKER) (test code = 354) 18 mg/dL 7-21 CREATININE (BEAKER) (test code = 358) 0.77 mg/dL 0.57-1.25 Specimen slightly hemolyzed GLUCOSE RANDOM (BEAKER) (test code = 652) 278 mg/dL 70-105 H CALCIUM (BEAKER) (test code = 697) 8.7 mg/dL 8.4-10.2 EGFR (BEAKER) (test code = 1092) 101 mL/min/1.73 sq m ESTIMATED GFR IS NOT ACCURATE CREATININE CLEARANCE IN PREDICTING GLOMERULAR FILTRATION RATE. ESTIMATED GFR IS NOT APPLICABLE FOR DIALYSIS PATIENTS. CREATINE KINASE (CK)2019-09-03 06:49:00* Test Item Value Reference Range Interpretation Comments CREATINE KINASE TOTAL (BEAKER) (test code = 380) 37 U/L 29-20 0 [id number] 06:45:00* Test Item Value Reference Range Interpretation Comments PROTIME (BEAKER) (test code = 759) 12.8 seconds 11.9-14.2 INR (BEAKER) (test code = 370) 1.0 <=5.9 PARTIAL THROMBOPLASTIN TIME (BEAKER) (test code = 760) 30.3 seconds 22.5-36.0 Effective 04/02/2019: PT Reference Range ChangeNew: 11.9-14.2 Previous: 11.7-14. 7RECOMMENDED COUMADIN/WARFARIN INR THERAPY RANGESSTANDARD DOSE: 2.0-3.0 Include s: PROPHYLAXIS for venous thrombosis, systemic embolization; TREATMENT for venou s thrombosis and/or pulmonary embolus.HIGH RISK: Target INR is 2.5-3.5 for patie nts wiht mechanical heart valves.CBC W/PLT COUNT & AUTO [id number] 06:44:00* Test Item Value Reference Range Interpretation Comments WHITE BLOOD CELL COUNT (BEAKER) (test code = 775) 7.1 K/ L 3.5- 10.5 RED BLOOD CELL COUNT (BEAKER) (test code = 761) 5.60 M/ L 4.63-6 .08 HEMOGLOBIN (BEAKER) (test code = 410) 15.9 GM/DL 13.7-17.5 HEMATOCRIT (BEAKER) (test code = 411) 48.9 % 40.1-51.0 MEAN CORPUSCULAR VOLUME (BEAKER) (test code = 753) 87.3 fL 79. 0-92.2 MEAN CORPUSCULAR HEMOGLOBIN (BEAKER) (test code = 751) 28.4 pg 25.7-32.2 MEAN CORPUSCULAR HEMOGLOBIN CONC (BEAKER) (test code = 752) 32.5 GM/DL 32.3-36.5 RED CELL DISTRIBUTION WIDTH (BEAKER) (test code = 412) 14.0 % 11.6-14.4 PLATELET COUNT (BEAKER) (test code = 756) 148 K/CU MM 150-450 L MEAN PLATELET VOLUME (BEAKER) (test code = 754) 9.6 fL 9.4-12 .4 NUCLEATED RED BLOOD CELLS (BEAKER) (test code = 413) 0 /100 WBC 0 -0 NEUTROPHILS RELATIVE PERCENT (BEAKER) (test code = 429) 72 % LYMPHOCYTES RELATIVE PERCENT (BEAKER) (test code = 430) 20 % MONOCYTES RELATIVE PERCENT (BEAKER) (test code = 431) 8 % EOSINOPHILS RELATIVE PERCENT (BEAKER) (test code = 432) 0 % BASOPHILS RELATIVE PERCENT (BEAKER) (test code = 437) 0 % NEUTROPHILS ABSOLUTE COUNT (BEAKER) (test code = 670) 5.06 K/ L 1.78-5.38 LYMPHOCYTES ABSOLUTE COUNT (BEAKER) (test code = 414) 1.40 K/ L 1.32-3.57 MONOCYTES ABSOLUTE COUNT (BEAKER) (test code = 415) 0.54 K/ L 0. 30-0.82 EOSINOPHILS ABSOLUTE COUNT (BEAKER) (test code = 416) 0.02 K/ L 0.04-0.54 L BASOPHILS ABSOLUTE COUNT (BEAKER) (test code = 417) 0.02 K/ L 0. 01-0.08 IMMATURE GRANULOCYTES-RELATIVE PERCENT (BEAKER) (test code = 2801) 0 % 0-1 CT, CTANGIO [id number] 06:41:00Reason for exam:->Symptoms onset less than 6 hours and NIHSS [address], CTANGIO BRAIN INDICATION: Neuro deficit, acute, stroke suspectedSymptoms onset less than 6 hours and NIHSS 6 or greater COMPARISON: CT head of the same date TECHNIQUE:Rapid acquisition spiral images were obtained between the [...] dose to as low as reasonably achievable. FINDINGS:CT BRAIN:Cerebral parenchyma: Redemonstrated remote infarcts in the left occipital lobe, left basal ganglia and left neil r adiata.Midline structures: Normally positioned.Cerebellum and brainstem: Normal. Ventricles: Extra-axial enlargementExtra-axial spaces: Unremarkable.Calvarium an d skull base: Intact.Paranasal sinuses and mastoid air cells: Mild mucosal thick ening in the left maxillary sinusOrbital contents: Included portions unremarkabl e.Other: Poor dentition with multiple erosions and periapical lucencies, most pr ominent at the left maxillary teeth. CTA BRAIN:Internal carotid arteries: Petrou s, cavernous and supraclinoid portions patent. Mild atherosclerotic calcificatio n of the bilateral distal ICAs, similar to previous.Middle cerebral arteries: Pa tent to distal branches.Anterior cerebral arteries: Patent. Intact A-comm.Basila r system: The right vertebral artery terminates in the right PICA. There is a pa tent distal left vertebral artery and basilar artery. There is minimal atheroscl erotic calcification of the distal vertebral artery.Posterior cerebral arteries: Patent beyond the quadrigeminal segments.Venous opacification: Major dural sinus es unremarkable for bolus timing.Additional findings: None. CTA NECK:Common villalobos tid arteries: The common carotid arteries are normal in size. Bifurcations: Sta ble irregularity of the left carotid bulb, possibly postoperative. Cervical inte rnal carotid arteries: No flow limiting stenosis. Retropharyngeal course of the right internal carotid artery.Vertebral arteries: Dominant left vertebral artery Arch anatomy: The left vertebral artery arises independently from the arch betwe en the left common carotid artery and left subclavian artery origins. There is a therosclerotic mural irregularity of the aortic arch. Nonvascular findings:Britton us structures: No acute osseous abnormality. Intact calvarium and skull base. Mi ld degenerative changes at C5-C6.Cervical soft tissues: No adenopathy. Patent ae rodigestive tract. 1.3 cm right thyroid nodule.Lung apices: No apical consolidat ion or pneumothorax. 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 No CT evidence of acute infarct. No intracranial hemorrhage. No intracranial vascular occlusion. No flow limiting stenosis or dissection. Po or dentition. 1.3 cm right thyroid nodule. Please see below for published recomm endations related to follow-up of an incidentally detected [...] to patients with symptomatic thyroid disease. Signed: Debora Jacobo MDReport Verified Date/Time: 09/03/2019 06:41:01 -GLUCOSE [id number] 05:53:00* Test Item Value Reference Range Interpretation Comments POC-GLUCOSE METER (BEAKER) (test code = 1538) 234 mg/dL 70-110 H : TESTED AT [facility] [address] [place] [address], [address]: Chemistry Faculty Member/Director Prison ID = [id number] for KIERAN PATEL CT, BRAIN/STROKE [id number] 05:08:00Reason for exam:->left sided weaknessWhat is the patient's sedation requirement?->No SedationFINAL REPORT CLINICAL HISTORY: Left-sided weakness, ataxia COMPARISON: 04/04/2018 Multiple axial images of the brain were performed without IV contrast. This exam was performed according to our departmental dose-optim ization program, which includes automated exposure control, adjustment of the mA and/or kV according to patient size and/or use of the iterative reconstruction technique. Images were performed within 24 hours of arrival at the facility. Int racranial hemorrhage: None. Brain parenchyma: Remote infarcts in the left occipi mihir lobe, left basal ganglia and neil radiata. Diffuse parenchymal volume loss . Scattered subcortical and periventricular non-specific white matter hypodensit ies suggestive of microangiopathy. Ventricles, sulci and basal cisterns: Ex vacu o prominence Extra-axial spaces: Normal. Midline shift: None. Visualized vascula ture: Atherosclerotic calcifications. Cranium: No significant findings. Skullbas e: No significant findings. Paranasal sinuses: No significant findings. IMPRESS ION: No definite acute intracranial abnormality. There is no mass lesion, intrac ranial hemorrhage or CT evidence of acute stroke. Chronic postischemic, microvas cular and involutional changes. Please note that CT is insensitive in the detect ion of acute ischemia. The examination was discussed with Dr. Jordan dated 0505 hours on the date of the examination. Signed: Debora Jacobo D ate/Time: 09/03/2019 05:08:25 , NEON SIGN SERVICER IN OR/30 MINUTE [id number] 11:09:00Reason for exam:->cystoPROCEDURE PERFORMED IN O.R. - PLEASE REFER TO THE INTRAOPERATIVE REPORT. -GLUCOSE [id number] 12:21:00* Test Item Value Reference Range Interpretation Comments POC-GLUCOSE METER (BEAKER) (test code = 1538) 136 mg/dL 70-110 H TESTED AT [facility] [address] [facility] [address] POCT-GLUCOSE [id number] 08:26:00* Test Item Value Reference Range Interpretation Comments POC-GLUCOSE METER (BEAKER) (test code = 1538) 176 mg/dL 70-110 H TESTED AT [facility] [address] [facility] [address] POCT-GLUCOSE [id number] 01:15:00* Test Item Value Reference Range Interpretation Comments POC-GLUCOSE METER (BEAKER) (test code = 1538) 201 mg/dL 70-110 H TESTED AT [facility] [address] [facility] [address] POCT-GLUCOSE [id number] 20:55:00* Test Item Value Reference Range Interpretation Comments POC-GLUCOSE METER (BEAKER) (test code = 1538) 117 mg/dL 70-110 H TESTED AT [place] [id number] [facility] [address] POCT-GLUCOSE [id number] 18:20:00* Test Item Value Reference Range Interpretation Comments POC-GLUCOSE METER (BEAKER) (test code = 1538) 174 mg/dL 70-110 H TESTED AT [place] [id number] [facility] [address] [id number] 06:10:00* Test Item Value Reference Range Interpretation Comments MAGNESIUM (BEAKER) (test code = 627) 1.7 mg/dL 1.6-2.6 BASIC METABOLIC [id number] 06:10:00* Test Item Value Reference Range Interpretation Comments SODIUM (BEAKER) (test code = 381) 139 meq/L 136-145 POTASSIUM (BEAKER) (test code = 379) 4.1 meq/L 3.5-5.1 CHLORIDE (BEAKER) (test code = 382) 106 meq/L 98-107 CO2 (BEAKER) (test code = 355) 23 meq/L 22-29 BLOOD UREA NITROGEN (BEAKER) (test code = 354) 10 mg/dL 7-21 CREATININE (BEAKER) (test code = 358) 0.73 mg/dL 0.57-1.25 GLUCOSE RANDOM (BEAKER) (test code = 652) 113 mg/dL 70-105 H CALCIUM (BEAKER) (test code = 697) 9.3 mg/dL 8.4-10.2 EGFR (BEAKER) (test code = 1092) 108 mL/min/1.73 sq m ESTIMATED GFR IS NOT ACCURATE CREATININE CLEARANCE IN PREDICTING GLOMERULAR FILTRATION RATE. ESTIMATED GFR IS NOT APPLICABLE FOR DIALYSIS PATIENTS. CBC (HEMOGRAM ONLY)2018-05-24 05:40:00* Test Item Value Reference Range Interpretation Comments WHITE BLOOD CELL COUNT (BEAKER) (test code = 775) 5.2 K/ L 3.5- 10.5 RED BLOOD CELL COUNT (BEAKER) (test code = 761) 5.08 M/ L 4.63-6 .08 HEMOGLOBIN (BEAKER) (test code = 410) 14.3 GM/DL 13.7-17.5 HEMATOCRIT (BEAKER) (test code = 411) 43.8 % 40.1-51.0 MEAN CORPUSCULAR VOLUME (BEAKER) (test code = 753) 86.2 fL 79. 0-92.2 MEAN CORPUSCULAR HEMOGLOBIN (BEAKER) (test code = 751) 28.1 pg 25.7-32.2 MEAN CORPUSCULAR HEMOGLOBIN CONC (BEAKER) (test code = 752) 32.6 GM/DL 32.3-36.5 RED CELL DISTRIBUTION WIDTH (BEAKER) (test code = 412) 13.2 % 11.6-14.4 PLATELET COUNT (BEAKER) (test code = 756) 165 K/CU MM 150-450 MEAN PLATELET VOLUME (BEAKER) (test code = 754) 9.6 fL 9.4-12 .4 NUCLEATED RED BLOOD CELLS (BEAKER) (test code = 413) 0 /100 WBC 0 -0 [id number] 19:18:00* Test Item Value Reference Range Interpretation Comments MAGNESIUM (BEAKER) (test code = 627) 1.8 mg/dL 1.6-2.6 BASIC METABOLIC [id number] 19:18:00* Test Item Value Reference Range Interpretation Comments SODIUM (BEAKER) (test code = 381) 135 meq/L 136-145 L POTASSIUM (BEAKER) (test code = 379) 3.9 meq/L 3.5-5.1 CHLORIDE (BEAKER) (test code = 382) 105 meq/L 98-107 CO2 (BEAKER) (test code = 355) 18 meq/L 22-29 L BLOOD UREA NITROGEN (BEAKER) (test code = 354) 11 mg/dL 7-21 CREATININE (BEAKER) (test code = 358) 0.77 mg/dL 0.57-1.25 GLUCOSE RANDOM (BEAKER) (test code = 652) 197 mg/dL 70-105 H CALCIUM (BEAKER) (test code = 697) 9.0 mg/dL 8.4-10.2 EGFR (BEAKER) (test code = 1092) 102 mL/min/1.73 sq m ESTIMATED GFR IS NOT ACCURATE CREATININE CLEARANCE IN PREDICTING GLOMERULAR FILTRATION RATE. ESTIMATED GFR IS NOT APPLICABLE FOR DIALYSIS PATIENTS. POCT-GLUCOSE [id number] 17:57:00* Test Item Value Reference Range Interpretation Comments POC-GLUCOSE METER (BEAKER) (test code = 1538) 107 mg/dL 70-110 TESTED AT [facility] [address] [facility] [address] POCT-GLUCOSE [id number] 15:37:00* Test Item Value Reference Range Interpretation Comments POC-GLUCOSE METER (BEAKER) (test code = 1538) 114 mg/dL 70-110 H TESTED AT [facility] [address] [facility] [address] URINE [id number] 07:38:00* Test Item Value Reference Range Interpretation Comments CULTURE (BEAKER) (test code = 1095) 10-19,000 col/mL skin marianela POCT-GLUCOSE [id number] 06:38:00* Test Item Value Reference Range Interpretation Comments POC-GLUCOSE METER (BEAKER) (test code = 1538) 159 mg/dL 70-110 H TESTED AT [facility] [address] [facility] [address] B-TYPE NATRIURETIC FACTOR (BNP)2018-05-23 06:30:00* Test Item Value Reference Range Interpretation Comments B-TYPE NATRIURETIC PEPTIDE (BEAKER) (test code = 700) 96 pg/mL 0-100 CBC (HEMOGRAM ONLY)2018-05-23 06:05:00* Test Item Value Reference Range Interpretation Comments WHITE BLOOD CELL COUNT (BEAKER) (test code = 775) 5.3 K/ L 3.5- 10.5 RED BLOOD CELL COUNT (BEAKER) (test code = 761) 4.84 M/ L 4.63-6 .08 HEMOGLOBIN (BEAKER) (test code = 410) 14.0 GM/DL 13.7-17.5 HEMATOCRIT (BEAKER) (test code = 411) 42.5 % 40.1-51.0 MEAN CORPUSCULAR VOLUME (BEAKER) (test code = 753) 87.8 fL 79. 0-92.2 MEAN CORPUSCULAR HEMOGLOBIN (BEAKER) (test code = 751) 28.9 pg 25.7-32.2 MEAN CORPUSCULAR HEMOGLOBIN CONC (BEAKER) (test code = 752) 32.9 GM/DL 32.3-36.5 RED CELL DISTRIBUTION WIDTH (BEAKER) (test code = 412) 13.4 % 11.6-14.4 PLATELET COUNT (BEAKER) (test code = 756) 159 K/CU MM 150-450 MEAN PLATELET VOLUME (BEAKER) (test code = 754) 9.7 fL 9.4-12 .4 NUCLEATED RED BLOOD CELLS (BEAKER) (test code = 413) 0 /100 WBC 0 -0 POCT-GLUCOSE [id number] 00:06:00* Test Item Value Reference Range Interpretation Comments POC-GLUCOSE METER (BEAKER) (test code = 1538) 125 mg/dL 70-110 H TESTED AT [facility] [address] [facility] [address] POCT-GLUCOSE [id number] 18:19:00* Test Item Value Reference Range Interpretation Comments POC-GLUCOSE METER (BEAKER) (test code = 1538) 237 mg/dL 70-110 H TESTED AT [facility] [address] [facility] [address] POCT-GLUCOSE [id number] 11:29:00* Test Item Value Reference Range Interpretation Comments POC-GLUCOSE METER (BEAKER) (test code = 1538) 115 mg/dL 70-110 H TESTED AT [facility] [address] [facility] [address] [id number] 07:07:00* Test Item Value Reference Range Interpretation Comments MAGNESIUM (BEAKER) (test code = 627) 2.1 mg/dL 1.6-2.6 BASIC METABOLIC [id number] 07:07:00* Test Item Value Reference Range Interpretation Comments SODIUM (BEAKER) (test code = 381) 137 meq/L 136-145 POTASSIUM (BEAKER) (test code = 379) 3.6 meq/L 3.5-5.1 CHLORIDE (BEAKER) (test code = 382) 104 meq/L 98-107 CO2 (BEAKER) (test code = 355) 25 meq/L 22-29 BLOOD UREA NITROGEN (BEAKER) (test code = 354) 13 mg/dL 7-21 CREATININE (BEAKER) (test code = 358) 0.79 mg/dL 0.57-1.25 GLUCOSE RANDOM (BEAKER) (test code = 652) 115 mg/dL 70-105 H CALCIUM (BEAKER) (test code = 697) 9.0 mg/dL 8.4-10.2 EGFR (BEAKER) (test code = 1092) 99 mL/min/1.73 sq m ESTIMATED GFR IS NOT ACCURATE CREATININE CLEARANCE IN PREDICTING GLOMERULAR FILTRATION RATE. ESTIMATED GFR IS NOT APPLICABLE FOR DIALYSIS PATIENTS. CBC (HEMOGRAM ONLY)2018-05-22 06:52:00* Test Item Value Reference Range Interpretation Comments WHITE BLOOD CELL COUNT (BEAKER) (test code = 775) 6.3 K/ L 3.5- 10.5 RED BLOOD CELL COUNT (BEAKER) (test code = 761) 5.28 M/ L 4.63-6 .08 HEMOGLOBIN (BEAKER) (test code = 410) 14.7 GM/DL 13.7-17.5 HEMATOCRIT (BEAKER) (test code = 411) 45.8 % 40.1-51.0 MEAN CORPUSCULAR VOLUME (BEAKER) (test code = 753) 86.7 fL 79. 0-92.2 MEAN CORPUSCULAR HEMOGLOBIN (BEAKER) (test code = 751) 27.8 pg 25.7-32.2 MEAN CORPUSCULAR HEMOGLOBIN CONC (BEAKER) (test code = 752) 32.1 GM/DL 32.3-36.5 L RED CELL DISTRIBUTION WIDTH (BEAKER) (test code = 412) 13.4 % 11.6-14.4 PLATELET COUNT (BEAKER) (test code = 756) 181 K/CU MM 150-450 MEAN PLATELET VOLUME (BEAKER) (test code = 754) 9.5 fL 9.4-12 .4 NUCLEATED RED BLOOD CELLS (BEAKER) (test code = 413) 0 /100 WBC 0 -0 POCT-GLUCOSE [id number] 04:48:00* Test Item Value Reference Range Interpretation Comments POC-GLUCOSE METER (BEAKER) (test code = 1538) 135 mg/dL 70-110 H TESTED AT [facility] [address] [facility] [address] [address], [id number] 01:00:00Reason for exam:->URINARY RETENTIONWhat is the patient's sedation requirement?->No SedationFINAL REPORT CT, ABDOMEN \\T\\ PELVIS, WITH IV CONTRAST INDICATION: Flank pain, stone disease suspectedURINARY RETENTION COMPARISON: None TECHNIQUE:Post contrast abdomen and pelvis CT. Coronal and sagittal reformatted images obtained. DOSE REDUCTION: Dose modulation, iterative reconstruction, and/or weight-based adjustment of the mA/kV was utilized to reduce the radiation dose to as low as reasonably achievable. FINDINGS: Lower thorax: Visible airspaces clear. No effusion. Liver: No parenchymal abnormality.Gallbladder and biliary tree: No ductal dilation or stones. Prior cholecystectomy.Pancreas: No acute findings.Spleen: No acute findingsAdrenal Glands: No acute findings.Kidneys and ureters: Mid ureteric stone on the right measures 7mm. Proximal hydronephrosis and hydroureter. Multiple, nonobstructing stones bilaterally. The largest on the right measures 7mm; the largest on the left measures 14 mm.Bladder and reproductive organs: Unremarkable. Stomach and Duodenum: No significant findings.Small and large intestine: Normal calibers.Appendix: Normal. Major vascular structures: Normal aortic caliber.Peritoneum and retroperitoneum: No free air, fluid or adenopathy. Skeleton: No acute bony abnormality.Additional findings: None. IMPRESSION: Obstructing right ureteric stone measures 7 mm. Multiple bilateral nonobstr ucting stones. The largest on the right measures 7mm; the largest on the left me asures 14 mm. Signed: JR Chapito, Mukul Crawford Verified Date/Time: 01:00:02 Reading Location: [address] Reading Room [facility] signed by: MUKUL OLIVARES on 05/22/2018 01:00 AM BASIC METABOLIC [id number] 22:29:00* Test Item Value Reference Range Interpretation Comments SODIUM (BEAKER) (test code = 381) 136 meq/L 136-145 POTASSIUM (BEAKER) (test code = 379) 3.5 meq/L 3.5-5.1 CHLORIDE (BEAKER) (test code = 382) 103 meq/L 98-107 CO2 (BEAKER) (test code = 355) 21 meq/L 22-29 L BLOOD UREA NITROGEN (BEAKER) (test code = 354) 17 mg/dL 7-21 CREATININE (BEAKER) (test code = 358) 0.84 mg/dL 0.57-1.25 GLUCOSE RANDOM (BEAKER) (test code = 652) 86 mg/dL 70-105 CALCIUM (BEAKER) (test code = 697) 9.4 mg/dL 8.4-10.2 EGFR (BEAKER) (test code = 1092) 92 mL/min/1.73 sq m ESTIMATED GFR IS NOT ACCURATE CREATININE CLEARANCE IN PREDICTING GLOMERULAR FILTRATION RATE. ESTIMATED GFR IS NOT APPLICABLE FOR DIALYSIS PATIENTS. PT/[id number] 22:27:00* Test Item Value Reference Range Interpretation Comments PROTIME (BEAKER) (test code = 759) 13.3 seconds 11.7-14.7 INR (BEAKER) (test code = 370) 1.0 <=5.9 PARTIAL THROMBOPLASTIN TIME (BEAKER) (test code = 760) 30.3 seconds 22.5-36.0 RECOMMENDED COUMADIN/WARFARIN INR THERAPY RANGESSTANDARD DOSE: 2.0 - 3.0 Inclu patt: PROPHYLAXIS for venous thrombosis, systemic embolization; TREATMENT for jodie ous thrombosis and/or pulmonary embolus.HIGH RISK: Target INR is 2.5-3.5 for pat ients with mechanical heart valves.CBC W/PLT COUNT & AUTO [id number] 22:15:00* Test Item Value Reference Range Interpretation Comments WHITE BLOOD CELL COUNT (BEAKER) (test code = 775) 9.9 K/ L 3.5- 10.5 RED BLOOD CELL COUNT (BEAKER) (test code = 761) 5.10 M/ L 4.63-6 .08 HEMOGLOBIN (BEAKER) (test code = 410) 14.5 GM/DL 13.7-17.5 HEMATOCRIT (BEAKER) (test code = 411) 43.9 % 40.1-51.0 MEAN CORPUSCULAR VOLUME (BEAKER) (test code = 753) 86.1 fL 79. 0-92.2 MEAN CORPUSCULAR HEMOGLOBIN (BEAKER) (test code = 751) 28.4 pg 25.7-32.2 MEAN CORPUSCULAR HEMOGLOBIN CONC (BEAKER) (test code = 752) 33.0 GM/DL 32.3-36.5 RED CELL DISTRIBUTION WIDTH (BEAKER) (test code = 412) 13.4 % 11.6-14.4 PLATELET COUNT (BEAKER) (test code = 756) 170 K/CU MM 150-450 MEAN PLATELET VOLUME (BEAKER) (test code = 754) 9.3 fL 9.4-12 .4 L NUCLEATED RED BLOOD CELLS (BEAKER) (test code = 413) 0 /100 WBC 0 -0 NEUTROPHILS RELATIVE PERCENT (BEAKER) (test code = 429) 71 % LYMPHOCYTES RELATIVE PERCENT (BEAKER) (test code = 430) 17 % MONOCYTES RELATIVE PERCENT (BEAKER) (test code = 431) 10 % EOSINOPHILS RELATIVE PERCENT (BEAKER) (test code = 432) 2 % BASOPHILS RELATIVE PERCENT (BEAKER) (test code = 437) 0 % NEUTROPHILS ABSOLUTE COUNT (BEAKER) (test code = 670) 7.09 K/ L 1.78-5.38 H LYMPHOCYTES ABSOLUTE COUNT (BEAKER) (test code = 414) 1.66 K/ L 1.32-3.57 MONOCYTES ABSOLUTE COUNT (BEAKER) (test code = 415) 0.98 K/ L 0. 30-0.82 H EOSINOPHILS ABSOLUTE COUNT (BEAKER) (test code = 416) 0.15 K/ L 0.04-0.54 BASOPHILS ABSOLUTE COUNT (BEAKER) (test code = 417) 0.02 K/ L 0. 01-0.08 IMMATURE GRANULOCYTES-RELATIVE PERCENT (BEAKER) (test code = 2801) 0 % 0-1 URINALYSIS W/ [id number] 21:22:00* Test Item Value Reference Range Interpretation Comments COLOR (BEAKER) (test code = 470) Light Yellow CLARITY (BEAKER) (test code = 469) Clear SPECIFIC GRAVITY UA (BEAKER) (test code = 468) 1.002 1.001-1 .035 PH UA (BEAKER) (test code = 467) 5.5 5.0-8.0 PROTEIN UA (BEAKER) (test code = 464) Negative Negative GLUCOSE UA (BEAKER) (test code = 365) Negative Negative KETONES UA (BEAKER) (test code = 371) Negative Negative BILIRUBIN UA (BEAKER) (test code = 462) Negative Negative BLOOD UA (BEAKER) (test code = 461) Large Negative A NITRITE UA (BEAKER) (test code = 465) Negative Negative LEUKOCYTE ESTERASE UA (BEAKER) (test code = 466) Negative Negat nelly UROBILINOGEN UA (BEAKER) (test code = 463) 0.2 mg/dL 0.2-1.0 RBC UA (BEAKER) (test code = 519) 8 /HPF WBC UA (BEAKER) (test code = 520) 1 /HPF BACTERIA (BEAKER) (test code = 517) Rare SOURCE(BEAKER) (test code = 2795) Urine, Voided POCT-GLUCOSE [id number] 13:01:00* Test Item Value Reference Range Interpretation Comments POC-GLUCOSE METER (BEAKER) (test code = 1538) 205 mg/dL 70-110 H TESTED AT [facility] [address] [facility] [address] POCT-GLUCOSE [id number] 09:20:00* Test Item Value Reference Range Interpretation Comments POC-GLUCOSE METER (BEAKER) (test code = 1538) 216 mg/dL 70-110 H TESTED AT [facility] [address] [facility] [address] BASIC METABOLIC [id number] 06:20:00* Test Item Value Reference Range Interpretation Comments SODIUM (BEAKER) (test code = 381) 135 meq/L 136-145 L POTASSIUM (BEAKER) (test code = 379) 4.3 meq/L 3.5-5.1 CHLORIDE (BEAKER) (test code = 382) 103 meq/L 98-107 CO2 (BEAKER) (test code = 355) 23 meq/L 22-29 BLOOD UREA NITROGEN (BEAKER) (test code = 354) 19 mg/dL 7-21 CREATININE (BEAKER) (test code = 358) 0.69 mg/dL 0.57-1.25 GLUCOSE RANDOM (BEAKER) (test code = 652) 187 mg/dL 70-105 H CALCIUM (BEAKER) (test code = 697) 9.1 mg/dL 8.4-10.2 EGFR (BEAKER) (test code = 1092) 116 mL/min/1.73 sq m ESTIMATED GFR IS NOT ACCURATE CREATININE CLEARANCE IN PREDICTING GLOMERULAR FILTRATION RATE. ESTIMATED GFR IS NOT APPLICABLE FOR DIALYSIS PATIENTS. CBC W/PLT COUNT & AUTO [id number] 05:54:00* Test Item Value Reference Range Interpretation Comments WHITE BLOOD CELL COUNT (BEAKER) (test code = 775) 5.9 K/ L 3.5- 10.5 RED BLOOD CELL COUNT (BEAKER) (test code = 761) 5.39 M/ L 4.63-6 .08 HEMOGLOBIN (BEAKER) (test code = 410) 15.3 GM/DL 13.7-17.5 HEMATOCRIT (BEAKER) (test code = 411) 46.2 % 40.1-51.0 MEAN CORPUSCULAR VOLUME (BEAKER) (test code = 753) 85.7 fL 79. 0-92.2 MEAN CORPUSCULAR HEMOGLOBIN (BEAKER) (test code = 751) 28.4 pg 25.7-32.2 MEAN CORPUSCULAR HEMOGLOBIN CONC (BEAKER) (test code = 752) 33.1 GM/DL 32.3-36.5 RED CELL DISTRIBUTION WIDTH (BEAKER) (test code = 412) 13.2 % 11.6-14.4 PLATELET COUNT (BEAKER) (test code = 756) 144 K/CU MM 150-450 L MEAN PLATELET VOLUME (BEAKER) (test code = 754) 10.1 fL 9.4-12 .4 NUCLEATED RED BLOOD CELLS (BEAKER) (test code = 413) 0 /100 WBC 0 -0 NEUTROPHILS RELATIVE PERCENT (BEAKER) (test code = 429) 58 % LYMPHOCYTES RELATIVE PERCENT (BEAKER) (test code = 430) 28 % MONOCYTES RELATIVE PERCENT (BEAKER) (test code = 431) 11 % EOSINOPHILS RELATIVE PERCENT (BEAKER) (test code = 432) 2 % BASOPHILS RELATIVE PERCENT (BEAKER) (test code = 437) 1 % NEUTROPHILS ABSOLUTE COUNT (BEAKER) (test code = 670) 3.43 K/ L 1.78-5.38 LYMPHOCYTES ABSOLUTE COUNT (BEAKER) (test code = 414) 1.67 K/ L 1.32-3.57 MONOCYTES ABSOLUTE COUNT (BEAKER) (test code = 415) 0.63 K/ L 0. 30-0.82 EOSINOPHILS ABSOLUTE COUNT (BEAKER) (test code = 416) 0.10 K/ L 0.04-0.54 BASOPHILS ABSOLUTE COUNT (BEAKER) (test code = 417) 0.03 K/ L 0. 01-0.08 IMMATURE GRANULOCYTES-RELATIVE PERCENT (BEAKER) (test code = 2801) 1 % 0-1 POCT-GLUCOSE [id number] 16:22:00* Test Item Value Reference Range Interpretation Comments POC-GLUCOSE METER (BEAKER) (test code = 1538) 180 mg/dL 70-110 H TESTED AT [place] [id number] POCT-GLUCOSE [id number] 11:30:00* Test Item Value Reference Range Interpretation Comments POC-GLUCOSE METER (BEAKER) (test code = 1538) 232 mg/dL 70-110 H TESTED AT [place] [id number] POCT-GLUCOSE [id number] 09:07:00* Test Item Value Reference Range Interpretation Comments POC-GLUCOSE METER (BEAKER) (test code = 1538) 243 mg/dL 70-110 H TESTED AT [address] [address] BASIC METABOLIC [id number] 05:20:00* Test Item Value Reference Range Interpretation Comments SODIUM (BEAKER) (test code = 381) 134 meq/L 136-145 L POTASSIUM (BEAKER) (test code = 379) 4.4 meq/L 3.5-5.1 Specimen slightly hemolyzed CHLORIDE (BEAKER) (test code = 382) 106 meq/L 98-107 CO2 (BEAKER) (test code = 355) 20 meq/L 22-29 L BLOOD UREA NITROGEN (BEAKER) (test code = 354) 22 mg/dL 7-21 H CREATININE (BEAKER) (test code = 358) 0.83 mg/dL 0.57-1.25 Specimen slightly hemolyzed GLUCOSE RANDOM (BEAKER) (test code = 652) 195 mg/dL 70-105 H CALCIUM (BEAKER) (test code = 697) 8.9 mg/dL 8.4-10.2 EGFR (BEAKER) (test code = 1092) 94 mL/min/1.73 sq m ESTIMATED GFR IS NOT ACCURATE CREATININE CLEARANCE IN PREDICTING GLOMERULAR FILTRATION RATE. ESTIMATED GFR IS NOT APPLICABLE FOR DIALYSIS PATIENTS. CBC W/PLT COUNT & AUTO [id number] 04:37:00* Test Item Value Reference Range Interpretation Comments WHITE BLOOD CELL COUNT (BEAKER) (test code = 775) 6.4 K/ L 3.5- 10.5 RED BLOOD CELL COUNT (BEAKER) (test code = 761) 5.34 M/ L 4.63-6 .08 HEMOGLOBIN (BEAKER) (test code = 410) 15.4 GM/DL 13.7-17.5 HEMATOCRIT (BEAKER) (test code = 411) 46.1 % 40.1-51.0 MEAN CORPUSCULAR VOLUME (BEAKER) (test code = 753) 86.3 fL 79. 0-92.2 MEAN CORPUSCULAR HEMOGLOBIN (BEAKER) (test code = 751) 28.8 pg 25.7-32.2 MEAN CORPUSCULAR HEMOGLOBIN CONC (BEAKER) (test code = 752) 33.4 GM/DL 32.3-36.5 RED CELL DISTRIBUTION WIDTH (BEAKER) (test code = 412) 13.2 % 11.6-14.4 PLATELET COUNT (BEAKER) (test code = 756) 145 K/CU MM 150-450 L MEAN PLATELET VOLUME (BEAKER) (test code = 754) 9.6 fL 9.4-12 .4 NUCLEATED RED BLOOD CELLS (BEAKER) (test code = 413) 0 /100 WBC 0 -0 NEUTROPHILS RELATIVE PERCENT (BEAKER) (test code = 429) 57 % LYMPHOCYTES RELATIVE PERCENT (BEAKER) (test code = 430) 29 % MONOCYTES RELATIVE PERCENT (BEAKER) (test code = 431) 12 % EOSINOPHILS RELATIVE PERCENT (BEAKER) (test code = 432) 2 % BASOPHILS RELATIVE PERCENT (BEAKER) (test code = 437) 1 % NEUTROPHILS ABSOLUTE COUNT (BEAKER) (test code = 670) 3.66 K/ L 1.78-5.38 LYMPHOCYTES ABSOLUTE COUNT (BEAKER) (test code = 414) 1.83 K/ L 1.32-3.57 MONOCYTES ABSOLUTE COUNT (BEAKER) (test code = 415) 0.78 K/ L 0. 30-0.82 EOSINOPHILS ABSOLUTE COUNT (BEAKER) (test code = 416) 0.10 K/ L 0.04-0.54 BASOPHILS ABSOLUTE COUNT (BEAKER) (test code = 417) 0.03 K/ L 0. 01-0.08 IMMATURE GRANULOCYTES-RELATIVE PERCENT (BEAKER) (test code = 2801) 0 % 0-1 POCT-GLUCOSE [id number] 00:58:00* Test Item Value Reference Range Interpretation Comments POC-GLUCOSE METER (BEAKER) (test code = 1538) 207 mg/dL 70-110 H TESTED AT [address] [address] POCT-GLUCOSE [id number] 17:59:00* Test Item Value Reference Range Interpretation Comments POC-GLUCOSE METER (BEAKER) (test code = 1538) 213 mg/dL 70-110 H TESTED AT [address] [address] POCT-GLUCOSE [id number] 11:37:00* Test Item Value Reference Range Interpretation Comments POC-GLUCOSE METER (BEAKER) (test code = 1538) 250 mg/dL 70-110 H TESTED AT [address] [address] POCT-GLUCOSE [id number] 08:24:00* Test Item Value Reference Range Interpretation Comments POC-GLUCOSE METER (BEAKER) (test code = 1538) 211 mg/dL 70-110 H TESTED AT [address] [address] CBC W/PLT COUNT & AUTO [id number] 06:52:00* Test Item Value Reference Range Interpretation Comments WHITE BLOOD CELL COUNT (BEAKER) (test code = 775) 7.3 K/ L 3.5- 10.5 RED BLOOD CELL COUNT (BEAKER) (test code = 761) 5.36 M/ L 4.63-6 .08 HEMOGLOBIN (BEAKER) (test code = 410) 15.1 GM/DL 13.7-17.5 HEMATOCRIT (BEAKER) (test code = 411) 46.3 % 40.1-51.0 MEAN CORPUSCULAR VOLUME (BEAKER) (test code = 753) 86.4 fL 79. 0-92.2 MEAN CORPUSCULAR HEMOGLOBIN (BEAKER) (test code = 751) 28.2 pg 25.7-32.2 MEAN CORPUSCULAR HEMOGLOBIN CONC (BEAKER) (test code = 752) 32.6 GM/DL 32.3-36.5 RED CELL DISTRIBUTION WIDTH (BEAKER) (test code = 412) 13.3 % 11.6-14.4 PLATELET COUNT (BEAKER) (test code = 756) 146 K/CU MM 150-450 L MEAN PLATELET VOLUME (BEAKER) (test code = 754) 10.0 fL 9.4-12 .4 NUCLEATED RED BLOOD CELLS (BEAKER) (test code = 413) 0 /100 WBC 0 -0 NEUTROPHILS RELATIVE PERCENT (BEAKER) (test code = 429) 64 % LYMPHOCYTES RELATIVE PERCENT (BEAKER) (test code = 430) 24 % MONOCYTES RELATIVE PERCENT (BEAKER) (test code = 431) 9 % EOSINOPHILS RELATIVE PERCENT (BEAKER) (test code = 432) 1 % BASOPHILS RELATIVE PERCENT (BEAKER) (test code = 437) 0 % NEUTROPHILS ABSOLUTE COUNT (BEAKER) (test code = 670) 4.70 K/ L 1.78-5.38 LYMPHOCYTES ABSOLUTE COUNT (BEAKER) (test code = 414) 1.78 K/ L 1.32-3.57 MONOCYTES ABSOLUTE COUNT (BEAKER) (test code = 415) 0.68 K/ L 0. 30-0.82 EOSINOPHILS ABSOLUTE COUNT (BEAKER) (test code = 416) 0.09 K/ L 0.04-0.54 BASOPHILS ABSOLUTE COUNT (BEAKER) (test code = 417) 0.03 K/ L 0. 01-0.08 IMMATURE GRANULOCYTES-RELATIVE PERCENT (BEAKER) (test code = 2801) 1 % 0-1 POCT-GLUCOSE [id number] 05:59:00* Test Item Value Reference Range Interpretation Comments POC-GLUCOSE METER (BEAKER) (test code = 1538) 229 mg/dL 70-110 H TESTED AT [address] [address] BASIC METABOLIC [id number] 05:59:00* Test Item Value Reference Range Interpretation Comments SODIUM (BEAKER) (test code = 381) 134 meq/L 136-145 L POTASSIUM (BEAKER) (test code = 379) 4.2 meq/L 3.5-5.1 CHLORIDE (BEAKER) (test code = 382) 103 meq/L 98-107 CO2 (BEAKER) (test code = 355) 22 meq/L 22-29 BLOOD UREA NITROGEN (BEAKER) (test code = 354) 15 mg/dL 7-21 CREATININE (BEAKER) (test code = 358) 0.76 mg/dL 0.57-1.25 GLUCOSE RANDOM (BEAKER) (test code = 652) 222 mg/dL 70-105 H CALCIUM (BEAKER) (test code = 697) 9.5 mg/dL 8.4-10.2 EGFR (BEAKER) (test code = 1092) 104 mL/min/1.73 sq m ESTIMATED GFR IS NOT ACCURATE CREATININE CLEARANCE IN PREDICTING GLOMERULAR FILTRATION RATE. ESTIMATED GFR IS NOT APPLICABLE FOR DIALYSIS PATIENTS. POCT-GLUCOSE [id number] 23:28:00* Test Item Value Reference Range Interpretation Comments POC-GLUCOSE METER (BEAKER) (test code = 1538) 163 mg/dL 70-110 H TESTED AT [address] [address] POCT-GLUCOSE [id number] 18:22:00* Test Item Value Reference Range Interpretation Comments POC-GLUCOSE METER (BEAKER) (test code = 1538) 263 mg/dL 70-110 H TESTED AT [address] [address] POCT-GLUCOSE [id number] 17:45:00* Test Item Value Reference Range Interpretation Comments POC-GLUCOSE METER (BEAKER) (test code = 1538) 212 mg/dL 70-110 H TESTED AT [address] [address] POCT-GLUCOSE [id number] 11:59:00* Test Item Value Reference Range Interpretation Comments POC-GLUCOSE METER (BEAKER) (test code = 1538) 163 mg/dL 70-110 H TESTED AT [facility] [address] [facility] [address] POCT-GLUCOSE [id number] 08:11:00* Test Item Value Reference Range Interpretation Comments POC-GLUCOSE METER (BEAKER) (test code = 1538) 269 mg/dL 70-110 H TESTED AT [facility] [address] [facility] [address] MR, BRAIN, WITHOUT [id number] 06:29:00Reason for exam:->StrokeWhat is the patient's sedation requirement?->No SedationFINAL REPORT MR, BRAIN, WITHOUT CONTRAST INDICATION: StrokeStroke TECHNIQUE: Multiplanar, multisequence MR imaging of the brain without intravenous contrast. COMPARISON: CT and CTA of the head and neck from earlier tonight FINDINGS: Left FIRST OFFICER territory acute infarction involving the parahippocampal gyrus and occipital lobe.No hemorrhagic transformation.Moderate global volume loss with moderate patchy periventricular and subcortical areas of T2 and FLAIR signal abnormality consistent with chronic microvascular ischemic disease.Remote left basal ganglia region infarct.No acute hydrocephalus.Preserved flow voids in the major intracranial vascular structures. Symmetric globes.The paranasal sinuses and mastoid air cells are well aerated. IMPRESSION:Acute, nonhemorrhagic infarct of the left FIRST OFFICER territory. Signed: Aidee Tim MDReport Verified Date/Time: 04/05/2018 06:29:59 Reading Location: [place] [id number] CT Body Reading Room C METABOLIC [id number] 05:01:00* Test Item Value Reference Range Interpretation Comments SODIUM (BEAKER) (test code = 381) 137 meq/L 136-145 POTASSIUM (BEAKER) (test code = 379) 4.1 meq/L 3.5-5.1 CHLORIDE (BEAKER) (test code = 382) 107 meq/L 98-107 CO2 (BEAKER) (test code = 355) 22 meq/L 22-29 BLOOD UREA NITROGEN (BEAKER) (test code = 354) 16 mg/dL 7-21 CREATININE (BEAKER) (test code = 358) 0.75 mg/dL 0.57-1.25 GLUCOSE RANDOM (BEAKER) (test code = 652) 199 mg/dL 70-105 H CALCIUM (BEAKER) (test code = 697) 8.7 mg/dL 8.4-10.2 EGFR (BEAKER) (test code = 1092) 105 mL/min/1.73 sq m ESTIMATED GFR IS NOT ACCURATE CREATININE CLEARANCE IN PREDICTING GLOMERULAR FILTRATION RATE. ESTIMATED GFR IS NOT APPLICABLE FOR DIALYSIS PATIENTS. CBC W/PLT COUNT & AUTO [id number] 04:30:00* Test Item Value Reference Range Interpretation Comments WHITE BLOOD CELL COUNT (BEAKER) (test code = 775) 6.2 K/ L 3.5- 10.5 RED BLOOD CELL COUNT (BEAKER) (test code = 761) 5.21 M/ L 4.63-6 .08 HEMOGLOBIN (BEAKER) (test code = 410) 14.8 GM/DL 13.7-17.5 HEMATOCRIT (BEAKER) (test code = 411) 45.4 % 40.1-51.0 MEAN CORPUSCULAR VOLUME (BEAKER) (test code = 753) 87.1 fL 79. 0-92.2 MEAN CORPUSCULAR HEMOGLOBIN (BEAKER) (test code = 751) 28.4 pg 25.7-32.2 MEAN CORPUSCULAR HEMOGLOBIN CONC (BEAKER) (test code = 752) 32.6 GM/DL 32.3-36.5 RED CELL DISTRIBUTION WIDTH (BEAKER) (test code = 412) 13.7 % 11.6-14.4 PLATELET COUNT (BEAKER) (test code = 756) 131 K/CU MM 150-450 L MEAN PLATELET VOLUME (BEAKER) (test code = 754) 9.5 fL 9.4-12 .4 NUCLEATED RED BLOOD CELLS (BEAKER) (test code = 413) 0 /100 WBC 0 -0 NEUTROPHILS RELATIVE PERCENT (BEAKER) (test code = 429) 62 % LYMPHOCYTES RELATIVE PERCENT (BEAKER) (test code = 430) 27 % MONOCYTES RELATIVE PERCENT (BEAKER) (test code = 431) 9 % EOSINOPHILS RELATIVE PERCENT (BEAKER) (test code = 432) 2 % BASOPHILS RELATIVE PERCENT (BEAKER) (test code = 437) 0 % NEUTROPHILS ABSOLUTE COUNT (BEAKER) (test code = 670) 3.82 K/ L 1.78-5.38 LYMPHOCYTES ABSOLUTE COUNT (BEAKER) (test code = 414) 1.65 K/ L 1.32-3.57 MONOCYTES ABSOLUTE COUNT (BEAKER) (test code = 415) 0.57 K/ L 0. 30-0.82 EOSINOPHILS ABSOLUTE COUNT (BEAKER) (test code = 416) 0.09 K/ L 0.04-0.54 BASOPHILS ABSOLUTE COUNT (BEAKER) (test code = 417) 0.02 K/ L 0. 01-0.08 IMMATURE GRANULOCYTES-RELATIVE PERCENT (BEAKER) (test code = 2801) 0 % 0-1 POCT-GLUCOSE [id number] 00:27:00* Test Item Value Reference Range Interpretation Comments POC-GLUCOSE METER (BEAKER) (test code = 1538) 183 mg/dL 70-110 H TESTED AT [facility] [address] [facility] [address] POCT-GLUCOSE [id number] 17:56:00* Test Item Value Reference Range Interpretation Comments POC-GLUCOSE METER (BEAKER) (test code = 1538) 183 mg/dL 70-110 H TESTED AT [place] [id number] [facility] [address] URINALYSIS W/ [id number] 13:44:00* Test Item Value Reference Range Interpretation Comments COLOR (BEAKER) (test code = 470) Yellow CLARITY (BEAKER) (test code = 469) Clear SPECIFIC GRAVITY UA (BEAKER) (test code = 468) 1.047 1.001-1 .035 H PH UA (BEAKER) (test code = 467) 5.5 5.0-8.0 PROTEIN UA (BEAKER) (test code = 464) 10 mg/dL Negative A GLUCOSE UA (BEAKER) (test code = 365) >1000 mg/dL Negative A KETONES UA (BEAKER) (test code = 371) Negative Negative BILIRUBIN UA (BEAKER) (test code = 462) Negative Negative BLOOD UA (BEAKER) (test code = 461) Small Negative A NITRITE UA (BEAKER) (test code = 465) Negative Negative LEUKOCYTE ESTERASE UA (BEAKER) (test code = 466) Negative Negat nelly UROBILINOGEN UA (BEAKER) (test code = 463) 2.0 mg/dL 0.2-1.0 H RBC UA (BEAKER) (test code = 519) 34 /HPF WBC UA (BEAKER) (test code = 520) 4 /HPF MUCUS (BEAKER) (test code = 1574) Occasional SOURCE(BEAKER) (test code = 2795) Urine, Clean Catch POCT-GLUCOSE [id number] 12:33:00* Test Item Value Reference Range Interpretation Comments POC-GLUCOSE METER (BEAKER) (test code = 1538) 232 mg/dL 70-110 H TESTED AT [address] [address] HEMOGLOBIN [id number] 09:53:00* Test Item Value Reference Range Interpretation Comments HEMOGLOBIN A1C (BEAKER) (test code = 368) 8.4 % 4.3-6.1 H TSH/FREE T4 IF [id number] 06:18:00* Test Item Value Reference Range Interpretation Comments THYROID STIMULATING HORMONE (BEAKER) (test code = 772) 1.17 uIU/mL 0.35-4.94 VITAMIN B12 AND [id number] 06:18:00* Test Item Value Reference Range Interpretation Comments VITAMIN B12 (BEAKER) (test code = 774) 464 pg/mL 213-816 FOLATE (BEAKER) (test code = 362) 9.6 ng/mL >=7.0 POCT-GLUCOSE [id number] 06:11:00* Test Item Value Reference Range Interpretation Comments POC-GLUCOSE METER (BEAKER) (test code = 1538) 261 mg/dL 70-110 H TESTED AT [address] [address] BASIC METABOLIC [id number] 05:43:00* Test Item Value Reference Range Interpretation Comments SODIUM (BEAKER) (test code = 381) 134 meq/L 136-145 L POTASSIUM (BEAKER) (test code = 379) 3.4 meq/L 3.5-5.1 L CHLORIDE (BEAKER) (test code = 382) 107 meq/L 98-107 CO2 (BEAKER) (test code = 355) 20 meq/L 22-29 L BLOOD UREA NITROGEN (BEAKER) (test code = 354) 17 mg/dL 7-21 CREATININE (BEAKER) (test code = 358) 0.66 mg/dL 0.57-1.25 GLUCOSE RANDOM (BEAKER) (test code = 652) 215 mg/dL 70-105 H CALCIUM (BEAKER) (test code = 697) 7.3 mg/dL 8.4-10.2 L EGFR (BEAKER) (test code = 1092) 122 mL/min/1.73 sq m ESTIMATED GFR IS NOT ACCURATE CREATININE CLEARANCE IN PREDICTING GLOMERULAR FILTRATION RATE. ESTIMATED GFR IS NOT APPLICABLE FOR DIALYSIS PATIENTS. FastingLIPID [id number] 05:40:00* Test Item Value Reference Range Interpretation Comments TRIGLYCERIDES (BEAKER) (test code = 540) 211 mg/dL CHOLESTEROL (BEAKER) (test code = 631) 132 mg/dL HDL CHOLESTEROL (BEAKER) (test code = 976) 25 mg/dL LDL CHOLESTEROL CALCULATED (BEAKER) (test code = 633) 65 mg/dL Triglyceride Reference Range: Low Risk <150 Borderline 150-199 High Risk 200-499 Very High Risk >=500Cholesterol Reference Range: Low Risk <200 Borderline 200-239 High Risk >240HDL Cholesterol Reference Range: Low Risk >=60 High Risk <40LDL Cholesterol Reference Range: Optimal <100 Near Optimal 100-129 Borderline 130-159 High 160-189 Very High >=190 Fasting URINALYSIS W/ REFLEX URINE [id number] 05:27:00* Test Item Value Reference Range Interpretation Comments COLOR (BEAKER) (test code = 470) [place] CLARITY (BEAKER) (test code = 469) [place]y SPECIFIC GRAVITY UA (BEAKER) (test code = 468) 1.039 1.001-1 .035 H PH UA (BEAKER) (test code = 467) 5.5 5.0-8.0 PROTEIN UA (BEAKER) (test code = 464) 30 mg/dL Negative A GLUCOSE UA (BEAKER) (test code = 365) >1000 mg/dL Negative A KETONES UA (BEAKER) (test code = 371) Trace Negative A BILIRUBIN UA (BEAKER) (test code = 462) Negative Negative BLOOD UA (BEAKER) (test code = 461) Large Negative A NITRITE UA (BEAKER) (test code = 465) Negative Negative LEUKOCYTE ESTERASE UA (BEAKER) (test code = 466) Negative Negat nelly UROBILINOGEN UA (BEAKER) (test code = 463) 0.2 mg/dL 0.2-1.0 RBC UA (BEAKER) (test code = 519) 754 /HPF WBC UA (BEAKER) (test code = 520) 13 /HPF MUCUS (BEAKER) (test code = 1574) Moderate SQUAMOUS EPITHELIAL (BEAKER) (test code = 516) < /HPF AMORPHOUS CRYSTALS (BEAKER) (test code = 1584) Rare SOURCE(BEAKER) (test code = 2795) CBC W/PLT COUNT & AUTO [id number] 05:02:00* Test Item Value Reference Range Interpretation Comments WHITE BLOOD CELL COUNT (BEAKER) (test code = 775) 7.3 K/ L 3.5- 10.5 RED BLOOD CELL COUNT (BEAKER) (test code = 761) 5.29 M/ L 4.63-6 .08 HEMOGLOBIN (BEAKER) (test code = 410) 15.3 GM/DL 13.7-17.5 HEMATOCRIT (BEAKER) (test code = 411) 45.9 % 40.1-51.0 MEAN CORPUSCULAR VOLUME (BEAKER) (test code = 753) 86.8 fL 79. 0-92.2 MEAN CORPUSCULAR HEMOGLOBIN (BEAKER) (test code = 751) 28.9 pg 25.7-32.2 MEAN CORPUSCULAR HEMOGLOBIN CONC (BEAKER) (test code = 752) 33.3 GM/DL 32.3-36.5 RED CELL DISTRIBUTION WIDTH (BEAKER) (test code = 412) 13.6 % 11.6-14.4 PLATELET COUNT (BEAKER) (test code = 756) 137 K/CU MM 150-450 L MEAN PLATELET VOLUME (BEAKER) (test code = 754) 9.8 fL 9.4-12 .4 NUCLEATED RED BLOOD CELLS (BEAKER) (test code = 413) 0 /100 WBC 0 -0 NEUTROPHILS RELATIVE PERCENT (BEAKER) (test code = 429) 67 % LYMPHOCYTES RELATIVE PERCENT (BEAKER) (test code = 430) 21 % MONOCYTES RELATIVE PERCENT (BEAKER) (test code = 431) 10 % EOSINOPHILS RELATIVE PERCENT (BEAKER) (test code = 432) 2 % BASOPHILS RELATIVE PERCENT (BEAKER) (test code = 437) 0 % NEUTROPHILS ABSOLUTE COUNT (BEAKER) (test code = 670) 4.84 K/ L 1.78-5.38 LYMPHOCYTES ABSOLUTE COUNT (BEAKER) (test code = 414) 1.54 K/ L 1.32-3.57 MONOCYTES ABSOLUTE COUNT (BEAKER) (test code = 415) 0.71 K/ L 0. 30-0.82 EOSINOPHILS ABSOLUTE COUNT (BEAKER) (test code = 416) 0.13 K/ L 0.04-0.54 BASOPHILS ABSOLUTE COUNT (BEAKER) (test code = 417) 0.01 K/ L 0. 01-0.08 IMMATURE GRANULOCYTES-RELATIVE PERCENT (BEAKER) (test code = 2801) 0 % 0-1 CT, CAROTID, [id number] 04:23:00Verify current renal function studies, consider renal protection order set as neededFINAL REPORT CT, CAROTID, ANGIO, CT, CTANGIO BRAINBRAIN CT WITHOUT CONTRAST INDICATION: "Stroke" COMPARISON: CT head of the same date TECHNIQUE:Rapid acquisition spiral images were obtained between the aortic arch and the cranial vertex during intravenous contrast infusion to reconstruct axial images and angiographic 3D maximum intensity projections (MIP). 3-D volumetric reformatted images were created at a dedicated workstation. Precontrast images of the brain were also obtained. Measurements are performed according to NASCET criteria. DOSE REDUCTION: Dose modulation, iterative reconstruction, and/or weight-based adjustment of the mA/kV was utilized to reduce the radiation dose to as low as reasonably achievable. 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 Intact calvarium.Symmetric globes.The paranasal sinuses a nd mastoid air cells are well aerated. CTA NECK:On the right, there is mild athe rosclerotic plaque at the CCA bifurcation. No flow limiting stenosis or dissecti on.On the left, there has probably been a carotid endarterectomy. Mild atheroscl erotic disease of the CCA bifurcation and proximal ICA. No flow limiting stenosi s or dissection.Left dominant vertebral artery system. No flow limiting stenosis of vertebral arteries. Nonvascular findings:No acute osseous abnormality.No baldemar nopathy. Patent aerodigestive tract.No apical consolidation or pneumothorax. CTA BRAIN:Mild atherosclerotic disease of the carotid siphons.No flow limiting sten osis, large vessel occlusion, or aneurysm of the anterior circulation.Right vert ebral artery terminates in PICA. Mild atherosclerotic disease of the intracrania l left vertebral artery.No flow limiting stenosis, large vessel occlusion, or an eurysm of the posterior circulation.Major venous sinuses opacify normally on thi s suboptimal exam for these structures. IMPRESSION:No acute intracranial abnorma lity.No flow-limiting stenosis, large vessel occlusion, or dissection. Signed: Aidee Pairs MDReport Verified Date/Time: 04/04/2018 04:23:39 Reading Locatio n: [facility] B1 C013Y CT Body Reading Room , CTANGIO [id number] 04:23:00Verify current renal function studies, consider renal protection order set as needed FINAL REPORT CT, CAROTID, ANGIO, CT, CTANGIO BRAINBRAIN CT WITHOUT CONTRAST INDICATION: "Stroke" COMPARISON: CT head of the same date TE HARITHANISCOTT:Rapid acquisition spiral images were obtained between the aortic arch an d the cranial vertex during intravenous contrast infusion to reconstruct axial i mages and angiographic 3D maximum intensity projections (MIP). 3-D volumetric re formatted images were created at a dedicated workstation. Precontrast images of the brain were also obtained. Measurements are performed according to NASCET cri teria. DOSE REDUCTION: Dose modulation, iterative reconstruction, and/or weight- based adjustment of the mA/kV was utilized to reduce the radiation dose to as lo w as reasonably achievable. FINDINGS: NECT BRAIN:Moderate global volume loss wit h moderate patchy periventricular and subcortical areas of white matter hypoatte nuation consistent with chronic microvascular ischemic disease.Midline structure s and posterior fossa within normal limits.Remote left basal ganglia and neil radiata infarcts.Small remote infarct of the right precentral gyrus.No subacute territorial infarction or hyperdense thrombus.No acute intracranial hemorrhage.N o acute hydrocephalus. Intact calvarium.Symmetric globes.The paranasal sinuses a nd mastoid air cells are well aerated. CTA NECK:On the right, there is mild athe rosclerotic plaque at the CCA bifurcation. No flow limiting stenosis or dissecti on.On the left, there has probably been a carotid endarterectomy. Mild atheroscl erotic disease of the CCA bifurcation and proximal ICA. No flow limiting stenosi s or dissection.Left dominant vertebral artery system. No flow limiting stenosis of vertebral arteries. Nonvascular findings:No acute osseous abnormality.No baldemar nopathy. Patent aerodigestive tract.No apical consolidation or pneumothorax. CTA BRAIN:Mild atherosclerotic disease of the carotid siphons.No flow limiting sten osis, large vessel occlusion, or aneurysm of the anterior circulation.Right vert ebral artery terminates in PICA. Mild atherosclerotic disease of the intracrania l left vertebral artery.No flow limiting stenosis, large vessel occlusion, or an eurysm of the posterior circulation.Major venous sinuses opacify normally on thi s suboptimal exam for these structures. IMPRESSION:No acute intracranial abnorma lity.No flow-limiting stenosis, large vessel occlusion, or dissection. Signed: Aidee Paris MDReport Verified Date/Time: 04/04/2018 04:23:39 Reading Locatio n: [facility] B1 C013Y CT Body Reading Room B-TYPE NATRIURETIC FACTOR (BNP)2018-04-04 03:21:00 * Test Item Value Reference Range Interpretation Comments B-TYPE NATRIURETIC PEPTIDE (BEAKER) (test code = 700) 45 pg/mL 0-100 CREATINE KINASE (CK), TOTAL AND [id number] 03:21:00* Test Item Value Reference Range Interpretation Comments CREATINE KINASE TOTAL (BEAKER) (test code = 380) 62 U/L 29-20 0 CREATINE KINASE-MB (BEAKER) (test code = 750) 1.3 ng/mL 0.0-6.6 CREATINE KINASE-MB INDEX (BEAKER) (test code = 395) 2.1 % CK-MB Reference Range:<6.7 Normal6.7-10.0 Borderline>10.0 Abnormal TROPONIN [id number] 03:21:00* Test Item Value Reference Range Interpretation Comments TROPONIN I (BEAKER) (test code = 397) < ng/mL 0.00-0.03 Troponin I (TnI) levels must be interpreted in the context of the presenting sym ptoms and the clinical findings. Elevated TnI levels indicate myocardial damage, but are not specific for ischemic heart disease. Elevated TnI levels are seen in patients with other cardiac conditions (including myocarditis and congestive h eart failure), and slight TnI elevations occur in patients with other conditions , including sepsis, renal failure, acidosis, acute neurological disease, and per sistent tachyarrhythmia.[id number] 03:12:00* Test Item Value Reference Range Interpretation Comments MAGNESIUM (BEAKER) (test code = 627) 2.3 mg/dL 1.6-2.6 BASIC METABOLIC [id number] 03:12:00* Test Item Value Reference Range Interpretation Comments SODIUM (BEAKER) (test code = 381) 136 meq/L 136-145 POTASSIUM (BEAKER) (test code = 379) 3.9 meq/L 3.5-5.1 CHLORIDE (BEAKER) (test code = 382) 102 meq/L 98-107 CO2 (BEAKER) (test code = 355) 23 meq/L 22-29 BLOOD UREA NITROGEN (BEAKER) (test code = 354) 19 mg/dL 7-21 CREATININE (BEAKER) (test code = 358) 0.83 mg/dL 0.57-1.25 GLUCOSE RANDOM (BEAKER) (test code = 652) 250 mg/dL 70-105 H CALCIUM (BEAKER) (test code = 697) 9.0 mg/dL 8.4-10.2 EGFR (BEAKER) (test code = 1092) 94 mL/min/1.73 sq m ESTIMATED GFR IS NOT ACCURATE CREATININE CLEARANCE IN PREDICTING GLOMERULAR FILTRATION RATE. ESTIMATED GFR IS NOT APPLICABLE FOR DIALYSIS PATIENTS. PT/[id number] 02:55:00* Test Item Value Reference Range Interpretation Comments PROTIME (BEAKER) (test code = 759) 13.0 seconds 11.7-14.7 INR (BEAKER) (test code = 370) 1.0 <=5.9 PARTIAL THROMBOPLASTIN TIME (BEAKER) (test code = 760) 27.1 seconds 22.5-36.0 RECOMMENDED COUMADIN/WARFARIN INR THERAPY RANGESSTANDARD DOSE: 2.0 - 3.0 Inclu patt: PROPHYLAXIS for venous thrombosis, systemic embolization; TREATMENT for jodie ous thrombosis and/or pulmonary embolus.HIGH RISK: Target INR is 2.5-3.5 for pat ients with mechanical heart valves.RAD, CHEST, 1 VIEW, NON [id number] 02:54:00Reason for exam:->sobShould this be performed at the bedside?->YesFINAL REPORT RAD, CHEST, 1 VIEW, NON DEPT INDICATION: sob COMPARISON: Chest x-ray 2007 TECHNIQUE: Single frontal view of the chest. IMPRE SSION:Stable cardiomegaly.There is mass effect on the right lateral aspect of th e distal trachea. This could be from an aneurysm or mediastinal mass. Recommend chest CT with contrast for further evaluation.No overt consolidative or congesti ve change.No acute osseous abnormality. Signed: Aidee Tim MDReport Veri ed Date/Time: 04/04/2018 02:54:24 Reading Location: [facility] C013Y CT Body Readin Room W/PLT COUNT & AUTO [id number] 02:45:00* Test Item Value Reference Range Interpretation Comments WHITE BLOOD CELL COUNT (BEAKER) (test code = 775) 7.1 K/ L 3.5- 10.5 RED BLOOD CELL COUNT (BEAKER) (test code = 761) 5.44 M/ L 4.63-6 .08 HEMOGLOBIN (BEAKER) (test code = 410) 15.9 GM/DL 13.7-17.5 HEMATOCRIT (BEAKER) (test code = 411) 47.0 % 40.1-51.0 MEAN CORPUSCULAR VOLUME (BEAKER) (test code = 753) 86.4 fL 79. 0-92.2 MEAN CORPUSCULAR HEMOGLOBIN (BEAKER) (test code = 751) 29.2 pg 25.7-32.2 MEAN CORPUSCULAR HEMOGLOBIN CONC (BEAKER) (test code = 752) 33.8 GM/DL 32.3-36.5 RED CELL DISTRIBUTION WIDTH (BEAKER) (test code = 412) 13.7 % 11.6-14.4 PLATELET COUNT (BEAKER) (test code = 756) 152 K/CU MM 150-450 MEAN PLATELET VOLUME (BEAKER) (test code = 754) 9.8 fL 9.4-12 .4 NUCLEATED RED BLOOD CELLS (BEAKER) (test code = 413) 0 /100 WBC 0 -0 NEUTROPHILS RELATIVE PERCENT (BEAKER) (test code = 429) 67 % LYMPHOCYTES RELATIVE PERCENT (BEAKER) (test code = 430) 20 % MONOCYTES RELATIVE PERCENT (BEAKER) (test code = 431) 11 % EOSINOPHILS RELATIVE PERCENT (BEAKER) (test code = 432) 1 % BASOPHILS RELATIVE PERCENT (BEAKER) (test code = 437) 0 % NEUTROPHILS ABSOLUTE COUNT (BEAKER) (test code = 670) 4.74 K/ L 1.78-5.38 LYMPHOCYTES ABSOLUTE COUNT (BEAKER) (test code = 414) 1.43 K/ L 1.32-3.57 MONOCYTES ABSOLUTE COUNT (BEAKER) (test code = 415) 0.76 K/ L 0. 30-0.82 EOSINOPHILS ABSOLUTE COUNT (BEAKER) (test code = 416) 0.10 K/ L 0.04-0.54 BASOPHILS ABSOLUTE COUNT (BEAKER) (test code = 417) 0.03 K/ L 0. 01-0.08 IMMATURE GRANULOCYTES-RELATIVE PERCENT (BEAKER) (test code = 2801) 0 % 0-1 CT, BRAIN/STROKE [id number] 02:34:00Reason for exam:->right side weaknessWhat is the patient's sedation requirement?->No SedationFINAL REPORT Clinical history : Focal neuro deficit. Right-sided weakness less than six hours. Previous history of left basal ganglia C VAComparison study: None Technique: Contiguous axial images were obtained of the brain without intravenous contrast. This exam was performed according to our departmental dose optimization program, which includes automated exposure contro l, adjustment of the mA and/or kV according to the patient's size and/or use of the iterative reconstruction technique. FINDINGS: Remote left caudate and putam en CVA. Nonspecific periventricular and subcortical white matter changes suggest nelly of chronic microangiopathy. No hydrocephalus, mass, midline shift, cisterna l effacement, intraparenchymal hemorrhage, or extra axial fluid collection.No ac rincon infarction is identified. Atherosclerotic calcifications of the intracrania l circulation. Mild ectasia of the intradural segment of the left vertebral erica ry. Left maxillary sinus retention cyst. The remainder of the paranasal sinuses and tympanomastoid air cells are well pneumatized. Normal orbital contents, skul l base, and calvarium. Impression: 1. No acute abnormalities. 2. Results disc ussed with the neurology resident Dr. Gordon and the emergency room room physician Dr. Jordan on 04/04/2018 at 2:20 AM. Signed: Ricki Osei MDReport Verified Jared e/Time: 04/04/2018 02:34:05 Reading Location: [address] Reading R oom Bedside [id number] 16:04:00* Test Item Value Reference Range Interpretation Comments Bedside Glucose (test code = 84925-9) 96 70-120 Meter ID: [id number] [facility] [id number] 16:47:00* Test Item Value Reference Range Interpretation Comments Urine WBC (test code = 5821-4) 0-5 0-5 [facility] [id number] 16:47:00* Test Item Value Reference Range Interpretation Comments Urine RBC (test code = 33113-1) 21-50 0-5 H [facility] [id number] 16:47:00* Test Item Value Reference Range Interpretation Comments Urine Bacteria (test code = 73799-9) FEW NONE [facility] Epithelial [id number] 16:47:00 * Test Item Value Reference Range Interpretation Comments Urine Epithelial Cells (test code = 57766-8) NONE NONE [facility] [id number] 16:47:00* Test Item Value Reference Range Interpretation Comments Urine Mucus (test code = 8247-9) MODERATE RARE H [facility] [id number] 16:39:00* Test Item Value Reference Range Interpretation Comments Urine Color (test code = 5778-6) ANDREA YELLOW H [facility] Hospital[facility] [id number] 16:39:00* Test Item Value Reference Range Interpretation Comments Urine Clarity (test code = 09812-6) CLEAR CLEAR [facility] Hospital[facility] Specific [id number] 16:39:00 * Test Item Value Reference Range Interpretation Comments Urine Specific [place] (test code = 5811-5) 1.025 1.010-1.02 5 [facility] HospitalU[facility] [id number] 16:39:00* Test Item Value Reference Range Interpretation Comments Urine pH (test code = 06528-4) 6 5-7 [facility] Leukocyte [id number] 16:39:00* Test Item Value Reference Range Interpretation Comments Urine Leukocyte Esterase (test code = 5799-2) NEGATIVE NEGATIVE [facility] [id number] 16:39:00* Test Item Value Reference Range Interpretation Comments Urine Nitrite (test code = 90589-1) NEGATIVE NEGATIVE [facility] [id number] 16:39:00* Test Item Value Reference Range Interpretation Comments Urine Protein (test code = 5804-0) 1+ NEGATIVE H [facility] HospitalUrine Glucose (UA)2017-12-04 16:39:00* Test Item Value Reference Range Interpretation Comments Urine Glucose (UA) (test code = 2349-9) 2+ NEGATIVE H [facility] HospitalUrine [id number] 16:39:00* Test Item Value Reference Range Interpretation Comments Urine Ketones (test code = 31529-9) NEGATIVE NEGATIVE [facility] [id number] 16:39:00* Test Item Value Reference Range Interpretation Comments Urine Urobilinogen (test code = 08373-6) 4 0.2-1 H [facility] HospitalUrine [id number] 16:39:00* Test Item Value Reference Range Interpretation Comments Urine Bilirubin (test code = 1978-6) NEGATIVE NEGATIVE [facility] Hospital[facility] [id number] 16:39:00* Test Item Value Reference Range Interpretation Comments Urine Blood (test code = 01641-9) 4+ NEGATIVE H [facility] HospitalTriglycerides [id number] 15:10:00* Test Item Value Reference Range Interpretation Comments Triglycerides Level (test code = 2571-8) 137 0-149 [facility] HospitalCholesterol Iyjpa8823-80-01 15:10:00* Test Item Value Reference Range Interpretation Comments Cholesterol Level (test code = 2093-3) 176 0-199 Less than 200 mg/dL Low Fjbk846 - 239 mg/dL Borderline Pknj522 m g/dl and greater High Risk [facility] HospitalLDL Ayteamxreom3743-90-19 15:10:00* Test Item Value Reference Range Interpretation Comments LDL Cholesterol (test code = 2089-1) 110 60-130 [facility] HospitalHDL Zxinnxcbpml2997-26-51 15:10:00* Test Item Value Reference Range Interpretation Comments HDL Cholesterol (test code = 2085-9) 39 40-60 L [facility] HospitalCholesterol/HDL Nyvmp0012-64-54 15:10:00 * Test Item Value Reference Range Interpretation Comments Cholesterol/HDL Ratio (test code = 9830-1) 4.5 3.9-4.7 [facility] HospitalHemoglobin A1c Prvxfqx8743-66-31 15:07:00 * Test Item Value Reference Range Interpretation Comments Hemoglobin A1c Percent (test code = Hemoglobin A1c Percent) 8.9 4.0-7.0 H [facility] [id number] 11:27:00* Test Item Value Reference Range Interpretation Comments Sodium Level (test code = 2951-2) 137 136-145 [facility] HospitalPotassium Zcuah4519-26-76 11:27:00* Test Item Value Reference Range Interpretation Comments Potassium Level (test code = 2823-3) 4.0 3.5-5.1 [facility] HospitalChloride [id number] 11:27:00* Test Item Value Reference Range Interpretation Comments Chloride Level (test code = 2075-0) 104 98-107 [facility] HospitalCarbon Dioxide [id number] 11:27:00* Test Item Value Reference Range Interpretation Comments Carbon Dioxide Level (test code = 2028-9) 24 22-29 [facility] HospitalAnion [id number] 11:27:00* Test Item Value Reference Range Interpretation Comments Anion Gap (test code = 22473-3) 13.0 8-16 [facility] HospitalBlood Urea [id number] 11:27:00* Test Item Value Reference Range Interpretation Comments Blood Urea Nitrogen (test code = 3094-0) 13 7-26 [facility] HospitalCreatinine2018-01-30 11:27:00* Test Item Value Reference Range Interpretation Comments Creatinine (test code = 2160-0) 0.88 0.72-1.25 [facility] HospitalBUN/Creatinine Yrfpi6778-63-87 11:27:00* Test Item Value Reference Range Interpretation Comments BUN/Creatinine Ratio (test code = 3097-3) 15 6-25 [facility] HospitalEstimat Glomerular Filtration Rate 2017-12-04 11:27:00* Test Item Value Reference Range Interpretation Comments Estimat Glomerular Filtration Rate (test code = 86775-0) 60- >60 Ranges were taken from the National Kidney Disease Education Program and the [facility] literature.Reference ranges:60 or greater: Odtpel17-63 ( for 3 consecutive months): Chronic kidney disease 15 or less: Kidney failureNorth Central Surgical Center HospitalGlucose Xxupl4478-72-21 11:27:00* Test Item Value Reference Range Interpretation Comments Glucose Level (test code = HHB4051) 231 74-118 H [facility] HospitalCalcium Ywgxa9218-55-44 11:27:00* Test Item Value Reference Range Interpretation Comments Calcium Level (test code = 01963-2) 8.9 8.4-10.2 [facility] HospitalTotal Wcuwdtbwv4278-81-03 11:27:00* Test Item Value Reference Range Interpretation Comments Total Bilirubin (test code = 1975-2) 0.5 0.2-1.2 [facility] HospitalAspartate Amino Transf (AST/SGOT) 2017-12-04 11:27:00* Test Item Value Reference Range Interpretation Comments Aspartate Amino Transf (AST/SGOT) (test code = Aspartate Amino Transf (AST/SGOT)) 14 5-34 [facility] HospitalAlanine Aminotransferase (ALT/SGPT) 2017-12-04 11:27:00* Test Item Value Reference Range Interpretation Comments Alanine Aminotransferase (ALT/SGPT) (test code = 1742-6) 18 0-55 [facility] HospitalTotal [id number] 11:27:00* Test Item Value Reference Range Interpretation Comments Total Protein (test code = 2885-2) 7.1 6.5-8.1 [facility] HospitalAlbumin2018-01-30 11:27:00* Test Item Value Reference Range Interpretation Comments Albumin (test code = 1751-7) 3.6 3.5-5.0 [facility] HospitalGlobulin2018-01-30 11:27:00* Test Item Value Reference Range Interpretation Comments Globulin (test code = 57870-6) 3.5 2.3-3.5 [facility] HospitalAlbumin/Globulin [id number] 11:27:00 * Test Item Value Reference Range Interpretation Comments Albumin/Globulin Ratio (test code = 1759-0) 1.0 0.8-2.0 [facility] HospitalAlkaline Xwceapccxqz2626-06-50 11:27:00* Test Item Value Reference Range Interpretation Comments Alkaline Phosphatase (test code = 6768-6) 84 40-150 [facility] HospitalCreatine Qziswk5835-46-28 11:27:00* Test Item Value Reference Range Interpretation Comments Creatine Kinase (test code = 2157-6) 59 30-200 [facility] HospitalCreatine Kinase [id number] 11:27:00* Test Item Value Reference Range Interpretation Comments Creatine Kinase MB (test code = 65654-2) 2.20 0.00-5.00 [facility] HospitalTroponin [id number] 11:27:00* Test Item Value Reference Range Interpretation Comments Troponin I (test code = 64789-4) 0.008 0-0.300 [facility] HospitalProthrombin Rpcs9370-05-10 11:07:00* Test Item Value Reference Range Interpretation Comments Prothrombin Time (test code = 5902-2) 12.9 11.9-14.5 [facility] HospitalProthromb Time International Ratio 2017-12-04 11:07:00* Test Item Value Reference Range Interpretation Comments Prothromb Time International Ratio (test code = 6301-6) 0.93 Oral Anticoagulant Therapy INR Values:1. Low Intensity Therapy 1.5 - 2.02 . Moderate Intensity Therapy 2.0 - 3.03. High Intensity Therapy(1) 2.5 - 3. 54. High Intensity Therapy(2) 3.0 - 4.05. Panic Value INR > 5.0 [facility] HospitalActivated Partial Thromboplast Time 2017-12-04 11:07:00* Test Item Value Reference Range Interpretation Comments Activated Partial Thromboplast Time (test code = 97361-5) 27.9 23.8-35.5 [facility] HospitalWhite Blood [id number] 11:04:00* Test Item Value Reference Range Interpretation Comments White Blood Count (test code = 6690-2) 5.87 4.8-10.8 [facility] HospitalRed Blood [id number] 11:04:00* Test Item Value Reference Range Interpretation Comments Red Blood Count (test code = 789-8) 5.56 4.3-5.7 [facility] HospitalHemoglobin2018-01-30 11:04:00* Test Item Value Reference Range Interpretation Comments Hemoglobin (test code = 41654-5) 15.9 14.0-18.0 [facility] HospitalHematocrit2018-01-30 11:04:00* Test Item Value Reference Range Interpretation Comments Hematocrit (test code = 4544-3) 48.3 38.2-49.6 [facility] HospitalMean Corpuscular [id number] 11:04:00* Test Item Value Reference Range Interpretation Comments Mean Corpuscular Volume (test code = 787-2) 86.9 81-99 [facility] HospitalMean Corpuscular Kxklgdxphm7680-17-42 11:04:00* Test Item Value Reference Range Interpretation Comments Mean Corpuscular Hemoglobin (test code = 785-6) 28.6 28-32 [facility] Concent 2017-12-04 11:04:00* Test Item Value Reference Range Interpretation Comments Mean Corpuscular Hemoglobin Concent (test code = 786-4) 32.9 31-35 [facility] HospitalRed Cell Distribution [id number] 11:04:00* Test Item Value Reference Range Interpretation Comments Red Cell Distribution Width (test code = 87027-3) 13.7 11.7 -14.4 [facility] HospitalPlatelet Hwehg7627-26-21 11:04:00* Test Item Value Reference Range Interpretation Comments Platelet Count (test code = 777-3) 202 140-360 [facility] HospitalNeutrophils (%) (Auto)2017-12-04 11:04:00 * Test Item Value Reference Range Interpretation Comments Neutrophils (%) (Auto) (test code = 45822-1) 63.0 38.7-80.0 [facility] HospitalLymphocytes (%) (Auto)2017-12-04 11:04:00 * Test Item Value Reference Range Interpretation Comments Lymphocytes (%) (Auto) (test code = 736-9) 24.7 18.0-39.1 [facility] HospitalMonocytes (%) (Auto)2017-12-04 11:04:00* Test Item Value Reference Range Interpretation Comments Monocytes (%) (Auto) (test code = 5905-5) 10.1 4.4-11.3 [facility] HospitalEosinophils (%) (Auto)2017-12-04 11:04:00 * Test Item Value Reference Range Interpretation Comments Eosinophils (%) (Auto) (test code = 713-8) 1.7 0.0-6.0 [facility] HospitalBasophils (%) (Auto)2017-12-04 11:04:00* Test Item Value Reference Range Interpretation Comments Basophils (%) (Auto) (test code = 706-2) 0.3 0.0-1.0 [facility] HospitalIM GRANULOCYTES %2017-12-04 11:04:00* Test Item Value Reference Range Interpretation Comments IM GRANULOCYTES % (test code = IM GRANULOCYTES %) 0.2 0.0- 1.0 [facility] HospitalNeutrophils # (Auto)2017-12-04 11:04:00* Test Item Value Reference Range Interpretation Comments Neutrophils # (Auto) (test code = 751-8) 3.7 2.1-6.9 [facility] HospitalLymphocytes # (Auto)2017-12-04 11:04:00* Test Item Value Reference Range Interpretation Comments Lymphocytes # (Auto) (test code = 32253-2) 1.5 1.0-3.2 [facility] HospitalMonocytes # (Auto)2017-12-04 11:04:00* Test Item Value Reference Range Interpretation Comments Monocytes # (Auto) (test code = 742-7) 0.6 0.2-0.8 [facility] HospitalEosinophils # (Auto)2017-12-04 11:04:00* Test Item Value Reference Range Interpretation Comments Eosinophils # (Auto) (test code = 711-2) 0.1 0.0-0.4 [facility] HospitalBasophils # (Auto)2017-12-04 11:04:00* Test Item Value Reference Range Interpretation Comments Basophils # (Auto) (test code = 704-7) 0.0 0.0-0.1 [facility] HospitalAbsolute Immature Granulocyte (auto 2017-12-04 11:04:00* Test Item Value Reference Range Interpretation Comments Absolute Immature Granulocyte (auto (christine t code = Absolute Immature Granulocyte (auto) 0.01 0-0.1 [facility] HospitalMRA NECK WO [facility] [address] [address] Patient Name: MUKUL HERNÁNDEZ MR #: [id number] : 1955 Age/Sex: 62/M Req #: [id number] Adm Physician: ERICH DEXTER MD Ordered by: KATELYNN ALCALA MD Report #: [id number] Location: [facility] Room/Bed: [place] [address] Procedure: [id number] MR I/MRA NECK WO Exam Date: Exam Time: REPORT S TATUS: Signed Exam: Brain, cervical MRA and intracranial MRA without IV contr ast History: Left arm weakness. Comparison studies: Head CT of the same d ate. Technique: Brain: Precontrast sagittal axial T2 FS, axial DWI, axia l T2*GRE, axial coronal T2 FLAIR and axial T1 FLAIR. Cervical MRA: Axial 2-D [id number]-[id number]-vupurc with 3-D MIP reformats. Intracranial MRA: Axial 3-D time-of-fl ight with multiplanar and 3-D MIP reformats Intravenous contrast: None Findings: Brain: Scalp: No abnormal signal. No masses. Bone marrow: Normal in signal intensity. Brain sulci: Mildly prominent . Ventricles: Normal in size. No hydrocephalus. No extra-axial fluid collection. Parenc hyma: Small focus of nonhemorrhagic ischemia with restricted diffusion and T2 FLAIR hyperintensity centered along the right precentral gyrus, regional to th e hand knob area, extends inferiorly along the adjacent right perirolandic whi te matter in the right MCA territory. There is subtle foci of increased signal on the DWI sequence within the right middle frontal gyrus which likely reflec ts additional small foci of acute ischemia. Small focal increased DWI signal i n the deep right parietal white matter is maybe with mildly decreased signal o n the ADC map may reflect late acute to subacute insult. A few scattered and mildly confluent-appearing periventricular T2 FLAIR hyperintense signal ch anges in the supratentorial white matter are nonspecific but most compatible w ith chronic small vessel ischemic changes. There are 2 small chronic left stri atal-capsular lacunar insults which extend from the left caudate nucleus to th e left lentiform nucleus. Additionally there are small chronic lacunar infarct s in the thalami and in right superolateral putamen. Subtle increased T2 signa l within the left ventral midbrain and left central swati may possibly reflect Wallerian degeneration along the left cortical spinal tract. Mild T2 FLAIR hyp erintense signal changes in the swati may also reflect mild chronic small vesse l ischemic changes. Suprasellar region: No abnormalities. Craniocervical junction: No abnormalities. The foramen magnum is patent. No Chiari malformati ons. Vessels: Normal flow-voids in the arteries and sinuses. Cervical MRA : Common carotid arteries arteries: Left common carotid artery is mildly tortuous. Cervical carotid bulbs: No (0%) stenosis by NASCET criteria. Internal carotid arteries: Patent, no stenosis. Distal segments are tortuous bilaterally. Vertebral arteries: Patent, no signal abnormalities in the dominant left vertebral artery. Hypoplastic right vertebral artery is poorly visualized in the distal V3 and proximal V4 segment near the dural insertion and terminates as a right posterior inferior cerebellar artery (PICA) branch. Intracranial MRA: Internal carotid arteries: Patent. No signal abnormalities. Middle cerebral arteries: Patent, no abnormalities in the M1 and proximal M2 segments. Anterior cerebral arteries: Patent, no abn ormalities in the A1 and proximal A2 segments. Vertebrobasilar circulatio n: Patent. No signal abnormalities.. Anatomical variants: Acom: Visual ized. Pcoms: Not visualized. Vertebral arteries: Left is dominant. Right is hypoplastic and terminates as a a PICA. IMPRESSION: Brain: 1. Small focal nonhemorrhagic ischemia in the right precentral gyrus and regional to adjacent right perirolandic tracts would account for patient's neurologic symptoms localizing to the left hand and correlates to the CT finding. Likely small additional foci of nonhemorrhagic ischemia in the adjacent right middle frontal gyrus and small late acute to subacute focus of ischemia in the deep r ight parietal white matter. 2. Mild generalized volume loss. 3. Chronic mi crovascular ischemic changes which are mildly confluent in the supratentorial white matter and chronic lacunar infarcts as described. Cervical and intrac ranial MRAs: 1. No acute cervical or intracranial MRA abnormalities. 2. No (0%) stenosis at the cervical carotid bifurcations. 3. Anatomical variant hypoplastic right right vertebral artery which terminates as a PICA branch. Findings discussed with Dr. Alcala 2:05 PM on 12/04/2017. Signed by: Dr. Namita Sharp M.D. on 12/04/2017 2:15 PM Dictated By: NAMITA SHARP MD 1412 Transcribed By: TOVA on 12/04/17 1415 COPY TO: KATELYNN ALCALA MD MRA HEAD WO [facility] [address] [address] Patient Name: MUKUL HERNÁNDEZ MR #: [id number] : 1955 Age/Sex: 62/M Req #: [id number] Adm Physician: ERICH DEXTER MD Ordered by: KATELYNN ALCALA MD Report #: [id number] Locatio n: [facility] Room/Bed: [place] [address] Procedure: [id number] MR I/MRA HEAD WO Exam Date: Exam Time: REPORT S TATUS: Signed Exam: Brain, cervical MRA and intracranial MRA without IV contr ast History: Left arm weakness. Comparison studies: Head CT of the same d ate. Technique: Brain: Precontrast sagittal axial T2 FS, axial DWI, axia l T2*GRE, axial coronal T2 FLAIR and axial T1 FLAIR. Cervical MRA: Axial 2-D [id number] with 3-D MIP reformats. Intracranial MRA: Axial 3-D time-of-fl ight with multiplanar and 3-D MIP reformats Intravenous contrast: None Findings: Brain: Scalp: No abnormal signal. No masses. Bone marrow: Normal in signal intensity. Brain sulci: Mildly prominent . Ventricles: Normal in size. No hydrocephalus. No extra-axial fluid collection. Parenc hyma: Small focus of nonhemorrhagic ischemia with restricted diffusion and T2 FLAIR hyperintensity centered along the right precentral gyrus, regional to th e hand knob area, extends inferiorly along the adjacent right perirolandic whi te matter in the right MCA territory. There is subtle foci of increased signal on the DWI sequence within the right middle frontal gyrus which likely reflec ts additional small foci of acute ischemia. Small focal increased DWI signal i n the deep right parietal white matter is maybe with mildly decreased signal o n the ADC map may reflect late acute to subacute insult. A few scattered and mildly confluent-appearing periventricular T2 FLAIR hyperintense signal ch anges in the supratentorial white matter are nonspecific but most compatible w ith chronic small vessel ischemic changes. There are 2 small chronic left stri atal-capsular lacunar insults which extend from the left caudate nucleus to th e left lentiform nucleus. Additionally there are small chronic lacunar infarct s in the thalami and in right superolateral putamen. Subtle increased T2 signa l within the left ventral midbrain and left central swati may possibly reflect Wallerian degeneration along the left cortical spinal tract. Mild T2 FLAIR hyp erintense signal changes in the swati may also reflect mild chronic small vesse l ischemic changes. Suprasellar region: No abnormalities. Craniocervical junction: No abnormalities. The foramen magnum is patent. No Chiari malformati ons. Vessels: Normal flow-voids in the arteries and sinuses. Cervical MRA : Common carotid arteries arteries: Left common carotid artery is mildly tortuous. Cervical carotid bulbs: No (0%) stenosis by NASCET criteria. Internal carotid arteries: Patent, no stenosis. Distal segments are tortuous bilaterally. Vertebral arteries: Patent, no signal abnormalities in the dominant left vertebral artery. Hypoplastic right vertebral artery is poorly visualized in the distal V3 and proximal V4 segment near the dural insertion and terminates as a right posterior inferior cerebellar artery (PICA) branch. Intracranial MRA: Internal carotid arteries: Patent. No signal abnormalities. Middle cerebral arteries: Patent, no abnormalities in the M1 and proximal M2 segments. Anterior cerebral arteries: Patent, no abn ormalities in the A1 and proximal A2 segments. Vertebrobasilar circulatio n: Patent. No signal abnormalities.. Anatomical variants: Acom: Visual ized. Pcoms: Not visualized. Vertebral arteries: Left is dominant. Right is hypoplastic and terminates as a a PICA. IMPRESSION: Brain: 1. Small focal nonhemorrhagic ischemia in the right precentral gyrus and regional to adjacent right perirolandic tracts would account for patient's neurologic symptoms localizing to the left hand and correlates to the CT finding. Likely small additional foci of nonhemorrhagic ischemia in the adjacent right middle frontal gyrus and small late acute to subacute focus of ischemia in the deep r ight parietal white matter. 2. Mild generalized volume loss. 3. Chronic mi crovascular ischemic changes which are mildly confluent in the supratentorial white matter and chronic lacunar infarcts as described. Cervical and intrac ranial MRAs: 1. No acute cervical or intracranial MRA abnormalities. 2. No (0%) stenosis at the cervical carotid bifurcations. 3. Anatomical variant hypoplastic right right vertebral artery which terminates as a PICA branch. Findings discussed with Dr. Alcala 2:05 PM on 12/04/2017. Signed by: Dr. Namita Sharp M.D. on 12/04/2017 2:15 PM Dictated By: NAMITA SHARP MD 1418 Transcribed By: TOVA on 12/04/17 1415 COPY TO: KATELYNN ALCALA MD MRI BRAIN [place] [address] [place] [address] Patient Name: MUKUL HERNÁNDEZ MR #: [id number] : 1955 Age/Sex: 62/M Req #: [id number] Adm Physician: ERICH DEXTER MD Ordered by: KATELYNN ALCALA MD Report #: [id number] Locatio n: [facility] Room/Bed: [place] [address] Procedure: [id number] MR I/MRI BRAIN WO Exam Date: Exam Time: REPORT STATUS: Signed Exam: Brain, cervical MRA and intracranial MRA without IV cont rast History: Left arm weakness. Comparison studies: Head CT of the same date. Technique: Brain: Precontrast sagittal axial T2 FS, axial DWI, axi al T2*GRE, axial coronal T2 FLAIR and axial T1 FLAIR. Cervical MRA: Axial 2- D [id number] with 3-D MIP reformats. Intracranial MRA: Axial 3-D time-of-f light with multiplanar and 3-D MIP reformats Intravenous contrast: None Findings: Brain: Scalp: No abnormal signal. No masses. Bone marrow: Normal in signal intensity. Brain sulci: Mildly prominent . Ventricles: Normal in size. No hydrocephalus. No extra-axial fluid collection. Paren chyma: Small focus of nonhemorrhagic ischemia with restricted diffusion and T2 FLAIR hyperintensity centered along the right precentral gyrus, regional to t he hand knob area, extends inferiorly along the adjacent right perirolandic wh ite matter in the right MCA territory. There is subtle foci of increased signa l on the DWI sequence within the right middle frontal gyrus which likely refle cts additional small foci of acute ischemia. Small focal increased DWI signal in the deep right parietal white matter is maybe with mildly decreased signal on the ADC map may reflect late acute to subacute insult. A few scattered and mildly confluent-appearing periventricular T2 FLAIR hyperintense signal c hanges in the supratentorial white matter are nonspecific but most compatible with chronic small vessel ischemic changes. There are 2 small chronic left str iatal-capsular lacunar insults which extend from the left caudate nucleus to t he left lentiform nucleus. Additionally there are small chronic lacunar infarc ts in the thalami and in right superolateral putamen. Subtle increased T2 sign al within the left ventral midbrain and left central swati may possibly reflect Wallerian degeneration along the left cortical spinal tract. Mild T2 FLAIR hy perintense signal changes in the swati may also reflect mild chronic small vess el ischemic changes. Suprasellar region: No abnormalities. Craniocervical junction: No abnormalities. The foramen magnum is patent. No Chiari malformat ions. Vessels: Normal flow-voids in the arteries and sinuses. Cervical MR A: Common carotid arteries arteries: Left common carotid artery is mildl y tortuous. Cervical carotid bulbs: No (0%) stenosis by NASCET criteria. Internal carotid arteries: Patent, no stenosis. Distal segments are tortu ous bilaterally. Vertebral arteries: Patent, no signal abnormalities in the dominant left vertebral artery. Hypoplastic right vertebral artery is poor ly visualized in the distal V3 and proximal V4 segment near the dural insertio n and terminates as a right posterior inferior cerebellar artery (PICA) branch . Intracranial MRA: Internal carotid arteries: Patent. No signal abnormalities. Middle cerebral arteries: Patent, no abnormalities in the M1 and proximal M2 segments. Anterior cerebral arteries: Patent, no ab normalities in the A1 and proximal A2 segments. Vertebrobasilar circulati on: Patent. No signal abnormalities.. Anatomical variants: Acom: Visua lized. Pcoms: Not visualized. Vertebral arteries: Left is dominant. Right is hypoplastic and terminates as a a PICA. IMPRESSION: Brain: 1. Small focal nonhemorrhagic ischemia in the right precentral gyrus and regional to adjacent right perirolandic tracts would account for patient's neurologic symptoms localizing to the left hand and correlates to the CT finding. Likely small additional foci of nonhemorrhagic ischemia in the adjacent right middle frontal gyrus and small late acute to subacute focus of ischemia in the deep right parietal white matter. 2. Mild generalized volume loss. 3. Chronic m icrovascular ischemic changes which are mildly confluent in the supratentorial white matter and chronic lacunar infarcts as described. Cervical and intra cranial MRAs: 1. No acute cervical or intracranial MRA abnormalities. 2. No (0%) stenosis at the cervical carotid bifurcations. 3. Anatomical variant hypoplastic right right vertebral artery which terminates as a PICA branch. Findings discussed with Dr. Alcala 2:05 PM on 12/04/2017. Signed by: Dr. Namita Sharp M.D. on 12/04/2017 2:15 PM Dictated By: NAMITA SHARP MD 1415 Transcribed By: TOVA on 12/04/17 1415 COPY TO: KATELYNN ALCALA MD CT BRAIN [place] [address] Patient Name: MUKUL HERNÁNDEZ MR #: [id number] : 1955 Age/Sex: 62/M Req #: [id number] Adm Physician: Ordered by: KATELYNN ALCALA MD Report #: [id number] Location: Room/Bed: Procedure: [id number] CT/CT BRAIN WO Exam Date: Exam Time: 1013 REPORT STATUS: Signed Exam: Head CT without contrast History: Weakness in left hand and numbness an d in left arm Comparison studies: None Technique: Axial images were ob tained from the skull base to the vertex. Coronal and sagittal images reconstr ucted from the axial data. Intravenous contrast: None Findings: Scal p: No abnormalities. Bones: No fractures, blastic or lytic lesions. Brain sulci: Mildly prominent. Ventricles: Mild compensatory dilatation.. No hydroc ephalus. Extra-axial spaces: No masses, no fluid collection. Parenchyma: No mass or acute hemorrhage. Subtle 6 mm age-indeterminate cortical ins ult along the right precentral gyrus regional to the hand knob. Symptoms of le ft handed weakness could be accounted for by a lesion in this location. T here are chronic left striatal-capsular lacunar infarcts. Additional chronic l acunar infarct in in the bilateral thalami. Small juxtacortical lacunar insult along the left inferior frontal gyrus appears to be chronic. A few scattered hypodensities in the supratentorial white matter are nonspecific but most comp atible with chronic small vessel ischemic changes. Sellar/suprasellar regio n: No abnormalities. Craniocervical junction: Patent foramen magnum. No Chiari one malformation. Incidental findings: Atherosclerotic calcifications in the carotid siphons and mildly ectatic left intradural vertebral artery. IMPRESSION: 1. Small age-indeterminate nonhemorrhagic right precentral cortical insult, possibly acute in the context of localizing neurologic sympto ms to the left upper extremity. Brain MRI could further evaluate. 2. No mas s, acute hemorrhage or large acute territorial vascular insult. 3. Mild gener alized volume loss. 4. Mild chronic microvascular ischemic changes with chron ic lacunar infarcts as described. Signed by: Dr. Namita Sharp M.D. on 10:37 AM Dictated By: NAMITA HSARP MD 1037 Transcribed By: TOVA on 12/04/17 103 7 COPY TO: KATELYNN ALCALA MD
--- NOTE | 2020-04-08 02:18 | Emergency Department Note ---
History of Present Illnes History of Present Illness Chief Complaint: Head/Face Trauma History of Present Illness This is a 64 year old male who presents with a complaint of laceration to forehead patient states he got up off the couch tripped and fell hitting his face on the floor. Patient denies LOC complaining of facial pain and head pain patient also reports he had 2 beers tonight before he fell. . Historian: Patient Arrival Mode: Car Onset (how long ago): minute(s) (20) Location: forehead and face Quality: laceration to forehead, nose hurts Radiation: non-radiation Severity: moderate Onset quality: sudden Duration (how long): hour(s) (20 minutes) Timing of current episode: constant Chronicity: new Context: recent illness, recent surgery Relieving factors: none Exacerbating factors: none Associated symptoms: denies other symptoms Treatments prior to arrival: none Past Medical/Family History Physician Review I have reviewed the patient's past medical and family history. Any updates have been documented here. Past Medical History Recent Fever: No Clinical Suspicion of Infectio: No New/Unexplained Change in Ment: No Past Medical History: Hypertension, Diabetes, Hyperlipedemia Other Medical History: chronic back pain Other Surgery: back surgery Social History Smoking Cessation: Current every day smoker Counseling Performed: No Alcohol Use: Occasional Any Illegal Drug Use: No TB Exposure/Symptoms: No Physically hurt or threatened: No Other Last Tetanus: 2012 Any Pre-Existing Lines (PICC,: No Is patient up to date on immun: No Last Flu: HAS NOT HAD Last Pneumovax: HAS NOT HAD Review of Systems Review of Systems Constitutional: no symptoms EENTM: no symptoms Cardiovascular: no symptoms Respiratory: no symptoms Gastrointestinal: no symptoms Genitourinary: no symptoms Musculoskeletal: no symptoms Neurological: no symptoms Psychological: no symptoms Endocrine: no symptoms Hematological/Lymphatic: no symptoms Review of other systems All other systems reviewed and negative. Physical Exam Related Data Allergies: Coded Allergies: No Known Drug Allergies (Verified Allergy, Mild, 01/28/13) Triage Vital Signs Vital Signs Date Time Temp Pulse Resp B/P (MAP) Pulse Ox O2 Delivery O2 Flow Rate FiO2 04/08/20 01:40 98.3 90 18 114/80 96 Vital signs reviewed: Yes Physical Exam CONSTITUTIONAL Constitutional: well-developed, well-nourished HENT HENT: normocephalic, atraumatic, oropharynx clear/moist, other (4 cm laceration to right forehead, mild swelling to nose) HENT L/R: left ext ear normal, right ext ear normal EYES Eyes: PERRL, conjunctivae normal NECK Neck: ROM normal PULMONARY Pulmonary: effort normal, breath sounds normal CARDIOVASCULAR Cardiovascular: regular rhythm, heart sounds normal, capillary refill normal, normal rate GASTROINTESTINAL Abdominal: soft, nontender, bowel sounds normal GENITOURINARY Genitourinary: exam deferred SKIN Skin: warm, dry MUSCULOSKELETAL Musculoskeletal: ROM normal NEUROLOGICAL Neurological: alert, oriented x 3, no gross motor or sensory deficits PSYCHOLOGICAL Psychological: mood/affect normal, judgement normal Results Imaging Imaging results reviewed: Yes Impressions Impression: Head CT: 1. No acute intracranial abnormality. 2. Right frontal scalp hematoma without fracture. 3. Mild chronic microvascular ischemic changes of the white matter. Bilateral basal ganglia chronic lacunar infarcts. Chronic infarct at the left lingula. 4. Mild diffuse volume loss. Facial CT: 1. Right supraorbital soft tissue hematoma. 2. No facial fractures. 3. Poor dentition. Cervical spine CT: 1. No acute cervical abnormalities. Degenerative changes as described above. 2. Cannot exclude ligament, spinal cord and or vascular abnormalities on the basis of this examination. Signed by: DR Randell Vallecillo M.D. on 04/08/2020 2:23 AM Procedures Laceration Laceration: Laceration 1 (right forehead) Site: face Side: right Size (cm): 4 Description: linear Depth: simple, single layer Local anesthesia: lidocaine 1%, with epi Amount of anesthesia (mL): 2 Pre-repair: wound exposed, irrigated extensively Skin layer closed with: other (prolene) Size (cm): 4-0 Number of sutures: 6 Technique: simple, interrupted Critical Care Time Subsequent provider I assumed direction of critical care for this patient from another provider of my specialty. Assessment & Plan Assessment & Plan Final Impression: (1) LACERATION W/O FOREIGN BODY OF OTH PART OF HEAD, INIT ENCNTR (2) CONTUSION OF UNSPECIFIED PART OF HEAD, INITIAL ENCOUNTER Assessment & Plan 64-year-old gentleman presents after tripping and falling landing on his face and head. As for similar laceration to right forehead. CT brain CT cervical spine CT face ordered to eval for fractures or intracranial injury. Patient instructed with wound clean and dry. The patient certainly may wash with mild soap and water briefly twice a day. Patient instructed to follow up with PCP or return to ER in 10-14 days for suture removal. Depart Disposition: HOME, SELF-CARE Last Vital Signs Date Time Temp Pulse Resp B/P (MAP) Pulse Ox O2 Delivery O2 Flow Rate FiO2 04/08/20 01:40 98.3 90 18 114/80 96 Home Meds Reported Medications Metformin Hcl (METFORMIN HCL) 500 Mg Tablet, 1000 MG PO BID, #60 TAB 12/06/17 Glimepiride (GLIMEPIRIDE) 2 Mg Tablet, 2 MG PO DAILY, TAB 12/06/17 Metoprolol Tartrate (METOPROLOL TARTRATE) 50 Mg Tablet, 50 MG PO BID, TAB 12/06/17 Amlodipine Besylate (AMLODIPINE BESYLATE) 10 Mg Tablet, 10 MG PO DAILY, #30 TAB 12/06/17 Atorvastatin Calcium (ATORVASTATIN CALCIUM) 20 Mg Tablet, 20 MG PO HS, #30 TAB 12/06/17 Hydrocodone Bit/Acetaminophen (NORCO 7.5-325 TABLET) 1 Each Tablet, 1 EA PO Q4HR PRN for PAIN, TAB 12/04/17 Zolpidem Tartrate (AMBIEN) 10 Mg Tablet, 10 MG PO HS PRN for SLEEP, #30 TAB 12/04/17 Medications in the ED Lidocaine/ Epinephrine ONCE ONCE INJ ; Start 04/08/20 at 01:30; Stop 04/08/20 at 01:31; Status DC BAN GARCIA MD Apr 08, 2020 02:18
[2020-04-08] MEDS ORDERED: NEOMYCIN/POLYMYX/BACITR OINT 0.9 GM PKT ONE (02:24)
--- NOTE | 2020-04-08 02:27 | Diagnostic Imaging Report ---
History: Fall, laceration to the right forehead Comparison studies:MRI brain 12/04/[address] head 12/04/2017 Technique: Axial images were obtained from the brain, face and cervical spine. Coronal and sagittal reconstructions obtained from the axial data. Intravenous contrast: None Dose modulation, iterative reconstruction, and/or weight based adjustment of the mA/kV was utilized to reduce the radiation dose to as low as reasonably achievable. Findings: Head CT: Scalp/skull: Right frontal scalp hematoma. No fractures, blastic or lytic lesions. Extra-axial spaces: No masses. No fluid collections. Brain sulci: Mildly prominent. Ventricles: Mild compensatory dilatation. No hydrocephalus. Parenchyma: Scattered small hypodensities in the supratentorial white matter are small vessel ischemic changes. Chronic lacunar infarcts at the right thalamocapsular and left striatocapsular region. Cortical based hypodensity with associated volume loss at the left occipital lobe (lingula). No masses, hemorrhage or acute or chronic cortical vascular insults. Sellar/suprasellar region: No abnormalities. Craniocervical junction: Patent foramen magnum. No Chiari one malformation. Incidental findings: Atherosclerotic calcifications in the carotid siphons and vertebral arteries. Maxillofacial CT: Soft tissues: Right supraorbital soft tissue swelling. Bones: No fractures or bony abnormalities. . Orbits: No abnormalities. Paranasal sinuses: Clear. Multiple missing dentition, dental cavities and periapical lucencies, better assess clinically. Cervical spine CT: Fractures: No acute fracture. Small fragmented well-corticated osteophyte at C4 inferior endplate. Soft tissues: No gross abnormalities. Atlantoaxial articulation: No acute abnormality. Mild degenerative changes. Alignment: Normal lordosis. No scoliosis. Cervicomedullary junction: No abnormalities. The foramen magnum is patent. Vertebrae: No infection or neoplasm. Degenerative changes: Decreased intervertebral space and endplate sclerosis at C5-6. Severe left degenerative foraminal narrowing and mild degenerative canal stenosis at C5-6. . Incidental findings: Atherosclerotic calcifications at the left carotid bulb. Impression: Head CT: 1. No acute intracranial abnormality. 2. Right frontal scalp hematoma without fracture. 3. Mild chronic microvascular ischemic changes of the white matter. Bilateral basal ganglia chronic lacunar infarcts. Chronic infarct at the left lingula. 4. Mild diffuse volume loss. Facial CT: 1. Right supraorbital soft tissue hematoma. 2. No facial fractures. 3. Poor dentition. Cervical spine CT: 1. No acute cervical abnormalities. Degenerative changes as described above. 2. Cannot exclude ligament, spinal cord and or vascular abnormalities on the basis of this examination. Signed by: DR Randell Vallecillo M.D. on 04/08/2020 2:23 AM
[2020-04-08] MEDS ORDERED: NEOMYCIN/POLYMYX/BACITR OINT 0.9 GM PKT TOP ONE (02:30)
[2020-04-08 02:35] VITALS: BP 148/95
--- NOTE | 2020-04-08 02:37 | NUR ---
PT REPORTS LAST TETANUS SHOT 6 MONTHS AGO. INFORMED.
[2020-04-08] MEDS ORDERED: ACETAMINOPHEN 325 MG TAB PO ONE (04:00)
[2020-04-08 04:36] LABS: BASOPHILS % 0.3 % (0.0-1.0); EOSINOPHILS # (AUTO) 0.1 (0.0-0.4); EOSINOPHILS % 1.4 % (0.0-6.0); HEMATOCRIT 48.3 % (38.2-49.6); HEMOGLOBIN 15.6 g/dL (14.0-18.0); LYMPHOCYTES # (AUTO) 1.8 (1.0-3.2); LYMPHOCYTES % 20.1 % (18.0-39.1); MEAN CORPUSCULAR HEMOGLOBIN 28.4 pg (28-32); MEAN CORPUSCULAR HGB CONC 32.3 g/dL (31-35); MEAN CORPUSCULAR VOLUME 87.8 fL (81-99); MONOCYTES # (AUTO) 0.8 (0.2-0.8); MONOCYTES % 8.8 % (4.4-11.3); NEUTROPHILS # (AUTO) 6.2 (2.1-6.9); NEUTROPHILS % 69.1 % (38.7-80.0); PLATELET COUNT 165 x10e3/uL (140-360); RED CELL DISTRIBUTION WIDTH 14.5 % (11.7-14.4)
[2020-04-08 04:39] LABS: AMPHETAMINES SCREEN,URINE NEGATIVE (NEGATIVE); BENZODIAZEPINES SCREEN,URINE NEGATIVE (NEGATIVE); CLARITY,URINE CLEAR (CLEAR); COLOR,URINE YELLOW (YELLOW); KETONES,URINE 1+ (NEGATIVE); LEUKOCYTE ESTERASE ,URINE NEGATIVE (NEGATIVE); NITRITE,URINE NEGATIVE (NEGATIVE); PHENCYCLIDINE SCREEN,URINE NEGATIVE (NEGATIVE); PROTEIN,URINE DIPSTICK NEGATIVE (NEGATIVE)
[2020-04-08 04:40] LABS: BILIRUBIN,URINE NEGATIVE (NEGATIVE); URINE UROBILINOGEN 2 mg/dL (0.2 - 1)
[2020-04-08 04:46] LABS: BACTERIA,URINE RARE /HPF; EPITHELIAL CELLS,URINE FEW /LPF; RBC,URINE 0-5 /HPF (0-5)
[2020-04-08 04:56] LABS: ANION GAP 13.9 mmol/L (8-16); BLOOD UREA NITROGEN 11 mg/dL (7-26); CALCIUM 9.1 mg/dL (8.4-10.2); CARBON DIOXIDE 23 mmol/L (22-29); CHLORIDE 106 mmol/L (98-107); GLUCOSE 195 mg/dL (74-118); POTASSIUM 3.9 mmol/L (3.5-5.1); SODIUM 139 mmol/L (136-145)
[2020-04-08 05:13] LABS: BUN/CREATININE RATIO 13 (6-25); CREATININE, SERUM 0.77 mg/dL (0.72-1.25); EST GLOMERULAR FILTRATION RATE > 60 ML/MIN (60-)
== END 2020-04-08 06:20 | disposition home or self-care (01) ==
LOC: ER 01:45
DX: S01.81XA Laceration without foreign body of other part of head, initial encounter (principal); W01.0XXA Fall on same level from slipping, tripping and stumbling without subsequent striking against object, initial encounter; Y92.008 Other place in unspecified non-institutional (private) residence as the place of occurrence of the external cause; I10 Essential (primary) hypertension; E11.9 Type 2 diabetes mellitus without complications; E78.5 Hyperlipidemia, unspecified
CPT/HCPCS: 36415; 70450; 70486; 72125; 80048; 80307; 80320; 81001; 85025; 99284